=== PATIENT | female | born 1935 | race Caucasian/White ===

== ENCOUNTER → 2017-11-15 09:22 | Outpatient (CLI) | payer MEDICARE, OTHER, SELFPAY ==
[2017-11-15] VITALS (7 sets, daily range): BP systolic 100–147; BP diastolic 58–86; PULSE 77–100; RESP 10–18; TEMP 36.2; O2SAT 97–100
--- NOTE | 2017-11-15 | DI.RAD.S_ITS ---
PROCEDURE: PAIN L/S TRANSFORAMINAL INJECT INDICATIONS: LUMBAR PAIN FINDINGS: Fluoroscopic spot filming was performed to verify placement of spinal needles at the left L3-4 level, as labeled on the films. Appropriate location(s) of the needle tip was confirmed by injection of iodinated contrast. IMPRESSION: Successful left L3-4 nerve root 3 localization. Dictated by: Link Solorio M.D. on 11/15/2017 at 12:58 Approved by: Link Solorio M.D. on 11/15/2017 at 12:59
--- NOTE | 2017-11-15 11:18 | P.PCN_ITS ---
Procedures Date/Time Date of procedure: 11/15/17 Time of procedure: 10:42 General Procedure description: PATIENT: Irma Lemus DATE OF : 1935 DATE OF SURGERY: 11/15/2017 PROVIDER: Manny Cortez DO Operative Note PREOP DIAGNOSIS 1. FORAMINAL STENOSIS WITH LE SYMPTOMS, POST OP DIAGNOSIS 1. FORAMINAL STENOSIS WITH LE SYMPTOMS, PROCEDURES 1. FLUOROSCOPICALLY GUIDED CONTRAST CONTROLLED TRANSFORAMINAL EPIDURAL STEROID INJECTION - left L3/4 TFESI, SURGEON: Manny Cortez DO INDICATIONS: Irma is referred by Dr. Ziegler for treatment of Foraminal Stenosis with Left LE Symptoms FINDINGS Foraminal Nerve Root Compression secondary to disc disease and facet hypertrophy DESCRIPTION OF PROCEDURE Following denial of allergy and review of potential side effects and complications, including, but not necessarily limited to, infection, allergic reaction, local tissue breakdown, stroke, temporary or permanent nerve injury, paralysis, and possible , the patient indicated that the patient understood and agreed to proceed. An informed consent document was signed by the patient, witnessed by a nurse, and placed in the patient's chart. Additionally, other treatment options including medications, modalities, and physical therapy were reviewed with the patient. Per the patient request, IV conscious sedation was administered via 4mg of Versed to patient comfort. The patient's vital signs were monitored throughout the procedure by both the nurse and the physician without significant fluctuation. The patient remained conversant throughout the procedure. In the prone position following sterile prep and drape of the lumbar region, the left L3/4 posterior neuroforamen was identified fluoroscopically. The skin was anesthetized via a 25-gauge 1.5-inch needle with 1% lidocaine solution. At this point, a 25-gauge 3.5-inch spinal needle was atraumatically introduced and advanced under fluoroscopic guidance through the posterior left L3/4 neuroforamen to approximately the anterior aspect of the canal. Depth was confirmed on lateral view. Following negative aspiration, injection of approximately 1.5 cc of Isovue 200 under live fluoroscopy in the AP view confirmed excellent flow along the nerve root, into the epidural space without vascular or intrathecal uptake observed Radiological data, including multiple fluoroscopic views of the lumbosacral spine, reveal a spinal needle at the left L3/4 posterior neuroforamen. Subsequent views show flow of contrast material flowing superiorly and inferiorly along the nerve root confirming epidural flow. Subsequently, a test dose of 1.5 cc of 1% lidocaine solution was administered and patient was observed for two minutes for signs or symptoms of complications , including abdominal pain, shortness of breath, bilateral upper or lower extremity weakness, nausea and vomiting, prior to steroid injection. At this point, a total of 3 cc or 20 mg of dexamethasone and 80mg Depo medrol was injected without incident. The patient was then transferred to the recovery area where they were observed for an appropriate time after the injection. The patient reported a VAS score of 7 prior to the procedure and a post-procedure VAS of 0. Total Fluoroscopy Time: 17.3 seconds Total Conscious Sedation Time: 24min POST OP INSTRUCTIONS The patient was provided a Pain Log to continue to record their response to the target-specific procedure prior to follow-up visit with their referring physician. Additionally, specific post-injection care instructions and a contact number to our office were provided if concerns arise regarding possible complications associated with the procedure are suspected. Manny Cortez DO
--- NOTE | 2017-11-15 18:08 | PC.NURSE ---
11:22 pt still sedated from 4mg Versed given during procedure. pt tolerated procedure well. pt did not need supplemental oxygen and was able to maintain her airway she just was very drowsy and still unsteady on her feet. pt was not ready for discharge so I passed off report to Shandra Tee RN who took over monitoring pt at 11:30am He would have dc'd her IV. I updated her Elroy to her progress when I went out to bring the next patient back. pt was discharged home with her .
== END ==
PROVIDERS: Family Provider Family Medicine; PCP Family Medicine; Visit Provider Physical Medicine & Rehabilitation
DX: M54.5 Low back pain (principal)
CPT/HCPCS: 64483; 99152; J1040; J1100; J2250

== ENCOUNTER 2017-12-12 12:27 | Outpatient (CLI) | payer MEDICARE, OTHER, SELFPAY ==
[2017-12-12] VITALS (9 sets, daily range): BP systolic 110–147; BP diastolic 52–82; PULSE 67–84; RESP 15–22; TEMP 35.9; O2SAT 97–100
--- NOTE | 2017-12-12 12:28 | DI.RAD.S_ITS ---
PROCEDURE: PAIN L/S TRANSFORAMINAL INJECT INDICATIONS: spinal stenosiS FINDINGS: Fluoroscopic spot filming was performed to verify placement of spinal needles at the left L3-4 nerve root level, as labeled on the films. Appropriate location(s) of the needle tip(s) was confirmed by injection of iodinated contrast. IMPRESSION: Successful left L3-4 nerve root epidural injection. Dictated by: Link Solorio M.D. on 12/12/2017 at 16:52 Approved by: Link Solorio M.D. on 12/12/2017 at 16:53
--- NOTE | 2017-12-12 13:33 | P.PCN_ITS ---
Procedures Date/Time Date of procedure: 12/12/17 Time of procedure: 13:32 General Procedure description: PROVIDER: Manny Cortez DO Operative Note PREOP DIAGNOSIS 1. FORAMINAL STENOSIS WITH LE SYMPTOMS, POST OP DIAGNOSIS 1. FORAMINAL STENOSIS WITH LE SYMPTOMS, PROCEDURES 1. FLUOROSCOPICALLY GUIDED CONTRAST CONTROLLED TRANSFORAMINAL EPIDURAL STEROID INJECTION - LEFT L3/4 TFESI SURGEON: Manny Cortez DO INDICATIONS Irma is referred by Dr. Ziegler for treatment of Foraminal Stenosis with left LE Symptoms FINDINGS Foraminal Nerve Root Compression secondary to disc disease and facet hypertrophy DESCRIPTION OF PROCEDURE Following denial of allergy and review of potential side effects and complications, including, but not necessarily limited to, infection, allergic reaction, local tissue breakdown, stroke, temporary or permanent nerve injury, paralysis, and possible , the patient indicated that the patient understood and agreed to proceed. An informed consent document was signed by the patient, witnessed by a nurse, and placed in the patient's chart. Additionally, other treatment options including medications, modalities, and physical therapy were reviewed with the patient. Per the patient request, IV conscious sedation was administered via 4mg of Versed to patient comfort. The patient's vital signs were monitored throughout the procedure by both the nurse and the physician without significant fluctuation. The patient remained conversant throughout the procedure. In the prone position following sterile prep and drape of the lumbar region, the left L3/4 posterior neuroforamen was identified fluoroscopically. The skin was anesthetized via a 25-gauge 1.5-inch needle with 1% lidocaine solution. At this point, a 25-gauge 3.5-inch spinal needle was atraumatically introduced and advanced under fluoroscopic guidance through the posterior left L3/4 neuroforamen to approximately the anterior aspect of the canal. Depth was confirmed on lateral view. Following negative aspiration, injection of approximately 1.5 cc of Isovue 200 under live fluoroscopy in the AP view confirmed excellent flow along the nerve root, into the epidural space without vascular or intrathecal uptake observed Radiological data, including multiple fluoroscopic views of the lumbosacral spine, reveal a spinal needle at the left L3/4 posterior neuroforamen. Subsequent views show flow of contrast material flowing superiorly and inferiorly along the nerve root confirming epidural flow. Subsequently, a test dose of 1.5 cc of 1% lidocaine solution was administered and patient was observed for two minutes for signs or symptoms of complications , including abdominal pain, shortness of breath, bilateral upper or lower extremity weakness, nausea and vomiting, prior to steroid injection. At this point, a total of 3 cc or 20 mg of dexamethasone and 80mg Depo medrol was injected without incident. The patient was then transferred to the recovery area where they were observed for an appropriate time after the injection. The patient reported a VAS score of 7 prior to the procedure and a post-procedure VAS of 0. Total Fluoroscopy Time: 23.2 seconds Total Conscious Sedation Time: 24min POST OP INSTRUCTIONS The patient was provided a Pain Log to continue to record their response to the target-specific procedure prior to follow-up visit with their referring physician. Additionally, specific post-injection care instructions and a contact number to our office were provided if concerns arise regarding possible complications associated with the procedure are suspected. Manny Cortez DO Complications: none
[2017-12-12] MEDS: methylPREDNISolone acetate 80 MG/ML VIAL INJ (13:41)
[2017-12-12] MEDS: IOPAMIDOL 15 ML VIAL 3 ML INJ (13:41)
[2017-12-12] MEDS: DEXAMETHASONE 10 MG/ML VIAL 20 MG INJ (13:41)
[2017-12-12] MEDS: BUPIVACAINE 0.25% (PF) 30 ML VIAL INJ (13:45)
[2017-12-12] MEDS: MIDAZOLAM 5 MG/5 ML VIAL IV (14:18)
--- NOTE | 2017-12-12 15:37 | PC.NURSE ---
pt still not to stable on her feet or so she felt, so she was wheeled out to her car with her by our technical aide preeti. pt tolerated procedure well and understands discharge instructions.
== END 2017-12-12 15:39 ==
LOC: RAD 12:28
PROVIDERS: Family Provider Family Medicine; PCP Family Medicine; Visit Provider Physical Medicine & Rehabilitation
DX: M48.061 Spinal stenosis, lumbar region without neurogenic claudication (principal); M54.17 Radiculopathy, lumbosacral region; S32.030A Wedge compression fracture of third lumbar vertebra, initial encounter for closed fracture
CPT/HCPCS: 64483; 99152; J1040; J1100; J2250

== ENCOUNTER → 2018-01-23 10:42 | Outpatient (CLI) | payer MEDICARE, OTHER, SELFPAY ==
--- NOTE | 2018-01-23 | DI.ECHO.S_ITS ---
[facility]---------+ [facility] +---------+ : : [address] : [address] : : : : [id number] : : : : Phone: [phone]+ Echocardiogram Report + + :Name: ISAAC ROSSI Study Date: 01/23/2018 Height: 63 in : :[facility] Exam Location: [place] Weight: 114 lb : : Gender: Female BSA: 1.5 m2 : :: 1935 Age: 82 yrs BP: 120/80 mmHg: :Reason For Study: MR : :Ordering Physician: : :Fidelia Ziegler Performed By: Rae Awan : :Referring: FIDELIA ZIEGLER : + + Interpretation Summary The ejection fraction is estimated to be 55-60%. The left atrium is severely dilated. There is moderate mitral regurgitation. The aortic valve is moderately calcified. Leaflet mobility is moderate to severely reduced. There is severe aortic stenosis. Compared to the prior echo study, there has been an increase in the severity of aortic stenosis. There is mild tricuspid regurgitation. The right ventricular systolic pressure is estimated at 37 mmHg assuming a right atrial pressure of 15 mm Hg. Procedure: A two-dimensional transthoracic echocardiogram with color flow and Doppler was performed. The study quality was technically adequate. Comparison is made with the echocardiogram of 02/10/2016. The patient was in normal sinus rhythm during the exam. Left Ventricle: There is mild proximal septal thickening noted. The left ventricle is normal in size. The left ventricular ejection fraction is normal. The ejection fraction is estimated to be 55-60%. There are no focal wall motion abnormalities. Assessment of diastolic parameters suggests a pseudonormalization pattern, consistent with elevated filling pressures. Right Ventricle: The right ventricle is normal in size and function. Atria: The left atrium is severely dilated. The right atrium is moderate to severely dilated. There is no Doppler evidence for an interatrial shunt. Mitral Valve: The mitral valve leaflets appear thickened, but open well. There is mild mitral valve prolapse. There is moderate mitral regurgitation. Aortic Valve: The aortic valve is trileaflet. The aortic valve is moderately calcified. Leaflet mobility is moderate to severely reduced. There is severe aortic stenosis. The calculated aortic valve area is 0.44 cm2. The peak aortic velocity is 3.6 m/sec. The peak aortic velocity on the previous exam was 2.8 m/sec. The aortic valve mean gradient is 30 mmHg. Compared to the prior echo study, there has been an increase in the severity of aortic stenosis. No aortic regurgitation is present. Tricuspid Valve: The tricuspid valve is normal. There is mild tricuspid regurgitation. The right ventricular systolic pressure is estimated at 37 mmHg assuming a right atrial pressure of 15 mm Hg. Pulmonic Valve: The pulmonic valve leaflets are thin and pliable; valve motion is normal. There is moderate pulmonic regurgitation. Great Vessels: The aortic root is normal size. The ascending aorta is normal in size. The aortic arch is normal in size. The pulmonary is not well visualized. The IVC is dilated (diameter is greater than 2.1 cm) and it collapses less than 50% with a sniff. This suggests a high right atrial pressure of 15 mm Hg. Pericardium/ Pleura There is no pericardial effusion. There is no pleural effusion. MMode/2D Measurements & Calculations LVIDd: 4.8 cm LVOT diam: 1.9 cm LVIDs: 3.1 cm Ao root diam: 3.2 cm FS: 34.1 % asc Aorta Diam: 3.0 cm EPSS: 0.84 cm Ao Arch Diam (Prox Trans): 2.5 cm IVSd: 1.3 cm LVPWd: 1.0 cm LV thompson. diameter/BSA (cm/m^2): 3.1 LV sys. diameter/BSA (cm/m^2): 2.1 LA A2 area: 28.8 cm2 RA long axis: 5.6 cm LA A4 area: 23.0 cm2 RA area: 21.0 cm2 LA length (vol): 5.8 cm RA vol: 67.1 ml LA vol: 97.0 ml RA : 44.0 ml/m2 LA vol index: 63.7 ml/m2 IVC diam: 2.6 cm RVD1 (basal): 3.3 cm RVD2 (mid): 2.1 cm TAPSE: 2.3 cm Doppler Measurements & Calculations Ao V2 max: 359.2 cm/sec LVOT Max Skyler: 65.6 cm/sec Ao V2 mean: 259.6 cm/sec LV V1 max P.7 mmHg Ao max P.6 mmHg LV V1 VTI: 14.5 cm Ao mean P.4 mmHg GABRIEL(I,D): 0.44 cm2 Ao V2 VTI: 90.7 cm GABRIEL(V,D): 0.50 cm2 sev ratio: 0.16 GABRIEL indexed to BSA (cm^2/m^2): 0.29 MV E max skyler: 110.1 cm/sec TR max skyler: 234.6 cm/sec MV A max skyler: 97.5 cm/sec TR max P.0 mmHg MV E/A: 1.1 PA V2 max: 42.6 cm/sec Med Peak E' Skyler: 4.6 cm/sec PA V2 mean: 27.5 cm/sec E/E' med: 23.8 PA mean P.36 mmHg Lat Peak E' Skyler: 4.6 cm/sec PA pr(Accel): -5.8 mmHg E/E' lat: 23.8 E/e' average: 23.8 MV dec time: 0.16 sec MV P1/2t: 47.7 msec MVA(VTI): 1.2 cm2 MV V2 mean: 80.7 cm/sec MV P1/2t max skyler: 109.4 cm/sec MV mean P.9 mmHg MVA(P1/2t): 4.6 cm2 MV V2 VTI: 34.0 cm Reading Physician:[id number] PM
== END ==
PROVIDERS: Family Provider Family Medicine; PCP Family Medicine; Visit Provider Family Medicine
DX: I08.3 Combined rheumatic disorders of mitral, aortic and tricuspid valves (principal)
CPT/HCPCS: 93306

== ENCOUNTER → 2018-08-09 12:50 | Outpatient (CLI) | payer MEDICARE, OTHER, SELFPAY | PROVIDERS: Family Provider Family Medicine; PCP Family Medicine; Visit Provider Family Medicine | DX: N64.89 Other specified disorders of breast (principal); Z53.9 Procedure and treatment not carried out, unspecified reason ==

== ENCOUNTER → 2018-10-29 08:20 | Outpatient (CLI) | payer MEDICARE, OTHER, SELFPAY ==
--- NOTE | 2018-10-29 | DI.MG.S_ITS ---
UNILATERAL RIGHT DIGITAL DIAGNOSTIC MAMMOGRAM 3D/2D: 10/29/2018 CLINICAL: Asymmetric tissue per CT right breast. Family history of breast cancer. Comparison is made to exams dated: 07/04/2018 CT - [facility], 01/24/2018 mammogram, 04/04/2016 mammogram, and 12/29/2014 mammogram - [facility]. Outside CT Chest 07/04/18. The tissue of the right breast are heterogeneously dense. This may lower the sensitivity of mammography. No significant masses, calcifications, or other findings are seen in the breast. There has been no significant interval change. IMPRESSION: NEGATIVE There is no mammographic evidence of malignancy. The findings on CT likely correspond to asymmetric fibroglandular tissue in the upper outer quadrant of the right breast which appears unchanged. A 1 year screening mammogram is recommended. This exam was interpreted at Station ID: [id number]. NOTE: For mammograms, a report in lay terms will be sent to the patient. Approximately 15% of breast malignancies will not be visualized mammographically. In the management of a palpable breast mass, a negative mammogram must not discourage biopsy of a clinically suspicious lesion. Electronically Signed By: Twin Townsend M.D. ddjoe/:10/29/2018 13:34:35 letter sent: Normal Exam ACR BI-RADS Category 1: Negative [id number]
== END ==
PROVIDERS: Family Provider Family Medicine; PCP Family Medicine; Visit Provider Family Medicine
DX: R92.8 Other abnormal and inconclusive findings on diagnostic imaging of breast (principal); Z80.3 Family history of malignant neoplasm of breast
CPT/HCPCS: 77065; G0279

== ENCOUNTER → 2018-12-07 15:51 | Outpatient (CLI) | payer MEDICARE, OTHER, SELFPAY ==
--- NOTE | 2018-12-07 | DI.ECHO.S_ITS ---
[facility] +---------+ [facility] +---------+ : : [address] : : : [address] : : : : [id number] : : : : Phone: [phone]---------+ Echocardiogram Report + + :Name: ISAAC ROSSI Study Date: 12/07/2018 Height: 63 in : :[facility] Location: [facility] Weight: 109 lb : : Gender: Female BSA: 1.5 m2 : :: 1935 Age: 83 yrs BP: 118/80 mmHg: :Reason For Study: Atrial fibrillation : :Ordering Physician: Vlad : :Meaghan Dorantes Performed By: Arlet Page : + + Interpretation Summary Left ventricular systolic function is mildly reduced. Left ventricular ejection fraction is estimated to be 45. The right ventricle is normal size. Right ventricular systolic function is at the lower limits of normal. Pulmonary artery pressures cannot be estimated because of the lack of a measurable TR jet velocity. There is a bioprosthetic aortic valve. The prosthetic aortic valve is well- seated and velocities are normal for this type of valve. There is mild to moderate mitral stenosis. -Overall the LV systolic function appears minimally better compared to the prior echo with the apex having the worst contractility. The mitral valve hemodynamics have improved and peak velocity is reduced from 1.8 m/s to 1.5 m/sec. The patient is no longer tachycardic. Procedure: A two-dimensional transthoracic echocardiogram with color flow and Doppler was performed. The study quality was technically adequate. Comparison is made with the echocardiogram of 10/05/2018. The patient has a paced rhythm. Left Ventricle: The left ventricle is normal in size. Left ventricular wall thickness is borderline increased. Left ventricular systolic function is mildly reduced. Left ventricular ejection fraction is estimated to be 45. There is moderate global hypokinesis of the left ventricle. The apex is severely hypokinetic. Septal motion is consistent with post-operative state. Diastolic function could not be accurately assessed due to paced rhythm. Right Ventricle: The right ventricle is normal size. There is a pacemaker lead in the right ventricle. Right ventricular systolic function is at the lower limits of normal. Atria: Both atria are moderately dilated. There is no Doppler evidence for an interatrial shunt. Mitral Valve: There is moderate mitral annular calcification. An annuloplasty ring is noted in the mitral position. The mitral valve mean gradient is 4.8 mmHg. There is mild to moderate mitral stenosis. There is trace mitral regurgitation. Aortic Valve: There is a bioprosthetic aortic valve. The prosthetic aortic valve is well-seated. The gradients through the prosthetic aortic valve are within the normal range for this type of valve. No aortic regurgitation is present. Tricuspid Valve: The tricuspid valve is normal in structure and function. There is trace tricuspid regurgitation. Pulmonary artery pressures cannot be estimated because of the lack of a measurable TR jet velocity. Pulmonic Valve: The pulmonic valve is not well seen, but is grossly normal. There is trace pulmonic regurgitation. Great Vessels: The aortic root is normal size. The ascending aorta is normal in size. The pulmonary artery is not well visualized, but is probably normal size. The IVC is dilated (diameter is greater than 2.1 cm) and it collapses less than 50% with a sniff. This suggests a high right atrial pressure of 15 mm Hg. Pericardium/ Pleura There is no pericardial effusion. There is no pleural effusion. MMode/2D Measurements & Calculations LVIDd: 4.4 cm LVOT diam: 1.7 cm LVIDs: 3.1 cm Ao root diam: 2.7 cm FS: 28.5 % asc Aorta Diam: 2.2 cm EPSS: 0.92 cm IVSd: 0.89 cm LVPWd: 0.95 cm LV thompson. diameter/BSA (cm/m^2): 2.9 LV sys. diameter/BSA (cm/m^2): 2.1 LA A2 area: 19.0 cm2 RA long axis: 5.9 cm LA A4 area: 17.8 cm2 RA area: 20.9 cm2 LA length (vol): 4.5 cm RA vol: 62.8 ml LA vol: 63.8 ml RA : 42.0 ml/m2 LA vol index: 42.7 ml/m2 IVC diam: 2.2 cm RVD1 (basal): 3.7 cm LVAd ap4: 22.9 cm2 RVD2 (mid): 3.1 cm LVAs ap4: 17.7 cm2 LVLs ap4: 7.0 cm LVAd ap2: 26.5 cm2 LVLd ap2: 7.7 cm LVAs ap2: 18.4 cm2 LVLs ap2: 6.9 cm Doppler Measurements & Calculations Ao V2 max: 164.4 cm/sec LVOT Max Skyler: 71.8 cm/sec Ao V2 mean: 119.2 cm/sec LV V1 max P.1 mmHg Ao max P.8 mmHg LV V1 VTI: 15.2 cm Ao mean P.1 mmHg GABRIEL(I,D): 0.99 cm2 Ao V2 VTI: 33.1 cm GABRIEL(V,D): 0.94 cm2 sev ratio: 0.46 GABRIEL indexed to BSA (cm^2/m^2): 0.66 MV E max skyler: 146.3 cm/sec PA V2 max: 51.2 cm/sec MV A max skyler: 108.3 cm/sec PA V2 mean: 40.2 cm/sec MV E/A: 1.4 PA mean P.68 mmHg Med Peak E' Skyler: 2.5 cm/sec PA Accel Time: 0.12 sec E/E' med: 59.0 Lat Peak E' Skyler: 5.8 cm/sec E/E' lat: 25.3 E/e' average: 42.2 MV dec time: 0.42 sec MV P1/2t: 122.8 msec MVA(VTI): 0.79 cm2 MV V2 mean: 106.2 cm/sec MV P1/2t max skyler: 146.9 cm/sec MV mean P.8 mmHg MVA(P1/2t): 1.8 cm2 MV V2 VTI: 41.2 cm SV(LVOT): 32.6 ml Electronically signed by: Vlad Harding M.D. on Reading Physician:12/09/2018 10:48 PM
== END ==
PROVIDERS: Family Provider Family Medicine; PCP Family Medicine; Visit Provider Hospitalist
DX: I48.0 Paroxysmal atrial fibrillation (principal); I05.0 Rheumatic mitral stenosis; Z95.2 Presence of prosthetic heart valve
CPT/HCPCS: 93306

== ENCOUNTER → 2019-07-22 13:23 | Outpatient (CLI) | payer MEDICARE, OTHER, SELFPAY ==
--- NOTE | 2019-07-22 | DI.ECHO.S_ITS ---
[facility] +---------+ : : [address] : [address] : : : : [id number] : : : : Phone: [phone]+ Echocardiogram Report + + :Name: ISAAC ROSSI Study Date: 07/22/2019 Height: 63 in : :[facility] Weight: 110 lb : : Gender: Female BSA: 1.5 m2 : :: 1935 Age: 84 yrs BP: 118/76 mmHg: :Reason For Study: Aortic valve replacement - bioprosthetic : :Ordering Physician: Eugenia : :Meaghan Dorantes Performed By: Luis Eduardo Fleming : :Referring: EUGENIA EDEN : + + Interpretation Summary Left ventricular wall thickness is mildly increased. The ejection fraction is estimated to be 50-55%. There is significant dyssynchronous contractility; the apical and apical inferior appear mildly hypokinetic. The right ventricle is normal in size and function. Post mitral annuloplasty There is moderate mitral stenosis. The mitral valve mean gradient is 8.5 mmHg. Pulmonary artery pressures cannot be estimated because of the lack of a measurable TR jet velocity. There is a bioprosthetic aortic valve. The gradients through the prosthetic aortic valve are within the normal range for this type of valve. -Overall this echocardiogram shows normal bioprosthetic aortic valve function and moderate iatrogenic mitral stenosis related to annuloplasty which is more pronounced on this study, but this is unlikely to be significant given there is no evidence of pulmonary hypertension. -The LV contractility has improved; There is significant dyssynchronous pattern of contractility with mild apical and apical inferior wall hypokinesia which is similar to the prior studies. Procedure: A two-dimensional transthoracic echocardiogram with color flow and Doppler was performed. The study quality was technically adequate. Prior echo performed on 12/07/18. The patient has a paced rhythm. Left Ventricle: The left ventricle is normal in size. Left ventricular wall thickness is mildly increased. The ejection fraction is estimated to be 50- 55%. Left ventricular systolic function is low normal. Mild apical and apical inferior hypokinesis. Diastolic function could not be accurately assessed due to confounding valvular disease. Right Ventricle: The right ventricle is normal in size and function. Atria: The left atrium is moderately dilated. There is a catheter/pacemaker lead seen in the right atrium. The right atrium is mildly dilated. There is no Doppler evidence for an interatrial shunt. Mitral Valve: Post mitral annuloplasty. There is moderate mitral stenosis. The mitral valve mean gradient is 8.5 mmHg. There is mild mitral regurgitation. Aortic Valve: There is a bioprosthetic aortic valve. The prosthetic aortic valve is well-seated. The gradients through the prosthetic aortic valve are within the normal range for this type of valve. The aortic valve mean gradient is 7 mmHg. There is trace aortic regurgitation. Tricuspid Valve: The tricuspid valve is normal in structure and function. There is trace tricuspid regurgitation. Pulmonary artery pressures cannot be estimated because of the lack of a measurable TR jet velocity. Pulmonic Valve: The pulmonic valve is not well visualized. There is moderate pulmonic regurgitation. Great Vessels: The aortic root is normal size. The dimensions of the ascending aorta are normal. The pulmonary artery is normal size. The IVC is dilated (diameter is greater than 2.1 cm) yet it collapses greater than 50% with a sniff. This suggests a right atrial pressure of 8 mm Hg. Pericardium/ Pleura There is no pericardial effusion. There is no pleural effusion. MMode/2D Measurements & Calculations LVIDd: 4.0 cm LVOT diam: 1.9 cm LVIDs: 3.1 cm Ao root diam: 3.1 cm FS: 22.8 % EPSS: 0.92 cm IVSd: 1.2 cm LVPWd: 1.2 cm LV thompson. diameter/BSA (cm/m^2): 2.7 LV sys. diameter/BSA (cm/m^2): 2.1 LA A2 area: 20.0 cm2 RA long axis: 5.1 cm LA A4 area: 18.7 cm2 RA area: 15.1 cm2 LA length (vol): 4.9 cm RA vol: 37.9 ml LA vol: 64.8 ml RA : 25.3 ml/m2 LA vol index: 43.2 ml/m2 TAPSE: 1.8 cm LVAd ap4: 21.2 cm2 LVAs ap4: 14.2 cm2 LVLs ap4: 6.8 cm LVAd ap2: 25.7 cm2 LVLd ap2: 8.0 cm LVAs ap2: 18.0 cm2 LVLs ap2: 7.4 cm Doppler Measurements & Calculations Ao V2 max: 178.3 cm/sec LVOT Max Skyler: 84.1 cm/sec Ao V2 mean: 125.6 cm/sec LV V1 max P.9 mmHg Ao max P.7 mmHg LV V1 VTI: 16.9 cm Ao mean P.2 mmHg GABRIEL(I,D): 1.4 cm2 Ao V2 VTI: 36.9 cm GABRIEL(V,D): 1.4 cm2 sev ratio: 0.46 GABRIEL indexed to BSA (cm^2/m^2): 0.90 MV E max skyler: 185.6 cm/sec PA V2 max: 60.8 cm/sec MV A max skyler: 145.4 cm/sec PA V2 mean: 48.7 cm/sec MV E/A: 1.3 PA mean P.0 mmHg Med Peak E' Skyler: 4.2 cm/sec PA Accel Time: 0.08 sec E/E' med: 43.9 Lat Peak E' Skyler: 4.5 cm/sec E/E' lat: 41.4 E/e' average: 42.7 MV dec time: 0.31 sec MVA(VTI): 0.96 cm2 MV V2 mean: 139.2 cm/sec SV(LVOT): 49.9 ml MV mean P.5 mmHg MV V2 VTI: 52.0 cm MV P1/2t-pr_phl: 135.7 msec Electronically signed by: Eugenia Eden M.D. on Reading Physician:07/22/2019 05:31 PM
== END ==
PROVIDERS: Family Provider Family Medicine; PCP Family Medicine; Visit Provider Hospitalist
DX: I05.2 Rheumatic mitral stenosis with insufficiency (principal); Z95.3 Presence of xenogenic heart valve; Z98.890 Other specified postprocedural states; Z95.1 Presence of aortocoronary bypass graft
CPT/HCPCS: 93306

== ENCOUNTER → 2019-08-07 09:43 | Outpatient (CLI) | payer MEDICARE, OTHER, SELFPAY | PROVIDERS: Family Provider Family Medicine; PCP Family Medicine; Referring Provider Family Medicine; Visit Provider Family Medicine | DX: M81.0 Age-related osteoporosis without current pathological fracture (principal); Z78.0 Asymptomatic menopausal state | CPT/HCPCS: 77080 ==

== ENCOUNTER → 2019-08-09 10:25 | Outpatient (CLI) | payer MEDICARE, OTHER, SELFPAY ==
[2019-08-09 11:28] LABS: Add Manual Diff / Slide Review NO; Basophils Absolute Auto 300 /uL (0-100); Basophils Percent Auto 3.4 % (0-2); Eosinophils Absolute Auto 200 /uL (0-450); Hemoglobin 13.1 g/dL (12.0-16.0); Lymphocytes Absolute Auto 2400 /uL (1100-4500); Lymphocytes Percent Auto 23.5 % (25-40); Mean Corpuscular HGB Conc 33.7 % (30-36); Mean Corpuscular Hemoglobin 31.9 PG (26-34); Mean Corpuscular Volume 94.7 fL (80-100); Monocytes Absolute Auto 900 /uL (0-900); Monocytes Percent Auto 8.7 % (3-14); Neutrophils Absolute Auto 6400 /uL (1500-7000); Neutrophils Percent Auto 62.4 % (50-75); Platelet Count 315 X10^3/uL (150-400); Red Blood Cell Count 4.12 X10^6/uL (4.0-5.2); White Blood Cell Count 10.3 X10^3/uL (4.5-11.0)
[2019-08-09 11:31] LABS: Alanine Aminotransferase 45 IU/L (<35); Albumin 4.5 g/dL (3.5-5.0); Albumin Globulin Ratio 1.3 (1.0-2.8); Alkaline Phosphatase 145 U/L (38-126); Aspartate Aminotransferase 51 IU/L (14-36); BUN Creatinine Ratio 23.8 (6-22); Bilirubin Total 0.6 mg/dL (0.2-1.3); Blood Urea Nitrogen 19 mg/dL (7-17); Calcium 9.9 mg/dL (8.4-10.2); Carbon Dioxide 32 mmol/L (22-32); Chloride 102 mmol/L (98-107); Cholesterol 192 mg/dL (140-199); Estimated Glomerular Filt Rate > 60.0 mL/min (>60); Globulin 3.4 g/dL (1.7-4.1); Glucose 87 mg/dL (80-110); HDL Cholesterol 51 mg/dL (40-60); HEMOLYSIS < 15 (0-50); LDL Cholesterol Calculated 125 mg/dL (<100); Potassium 4.2 mmol/L (3.4-5.1); Sodium 142 mmol/L (137-145); Total Protein 7.9 g/dL (6.3-8.2); Triglycerides 80 mg/dL (35-150)
[2019-08-09 12:06] LABS: Thyroid Stimulating Hormone 1.24 uIU/mL (0.47-4.68)
== END ==
PROVIDERS: Family Provider Family Medicine; PCP Family Medicine; Referring Provider Family Medicine; Visit Provider Family Medicine
DX: E78.5 Hyperlipidemia, unspecified (principal); I10 Essential (primary) hypertension
CPT/HCPCS: 36415; 80053; 80061; 84443; 85025

== ENCOUNTER → 2020-04-08 12:37 | Outpatient (CLI) | payer MEDICARE, OTHER, SELFPAY ==
--- NOTE | 2020-04-08 | DI.RAD.S_ITS ---
PROCEDURE: XR SHOULDER LT MIN 2V INDICATIONS: LEFT SHOULDER PAIN TECHNIQUE: 3 views of the shoulder were acquired. COMPARISON: None. FINDINGS: Bones: No fractures or dislocations. No suspicious bony lesions. Visualized ribs appear intact. Soft tissues: No suspicious soft tissue calcifications. Pacemaker and dual chamber leads in place. IMPRESSION: [id number] AC joint osteoarthritis. Dictated by: Link Solorio M.D. on 04/08/2020 at 15:15 Approved by: Link Solorio M.D. on 04/08/2020 at 15:16
== END ==
PROVIDERS: Family Provider Family Medicine; PCP Family Medicine; Referring Provider Family Medicine; Visit Provider Family Medicine
DX: M25.512 Pain in left shoulder (principal); M19.012 Primary osteoarthritis, left shoulder
CPT/HCPCS: 73030

== ENCOUNTER → 2020-04-21 10:27 | Outpatient (CLI) | payer MEDICARE, OTHER, SELFPAY ==
--- NOTE | 2020-04-21 | DI.MG.S_ITS ---
BILATERAL DIGITAL SCREENING MAMMOGRAM 3D/2D WITH CAD: 04/21/2020 CLINICAL: Routine screening. Family history of breast cancer. Comparison is made to exams dated: 10/29/2018 mammogram - [facility], 01/24/2018 mammogram, and 04/04/2016 mammogram - [facility]. There are scattered fibroglandular elements in both breasts. Current study was also evaluated with a Computer Aided Detection (CAD) system. No significant masses, calcifications, or other findings are seen in either breast. There has been no significant interval change. IMPRESSION: NEGATIVE There is no mammographic evidence of malignancy. A 1 year screening mammogram is recommended. This exam was interpreted at Station ID: [id number]. NOTE: For mammograms, a report in lay terms will be sent to the patient. Approximately 15% of breast malignancies will not be visualized mammographically. In the management of a palpable breast mass, a negative mammogram must not discourage biopsy of a clinically suspicious lesion. Electronically Signed By: Xander kahn/gene:04/21/2020 16:59:10 letter sent: Normal Exam ACR BI-RADS Category 1: Negative 3341F
== END ==
PROVIDERS: Family Provider Family Medicine; PCP Family Medicine; Referring Provider Family Medicine; Visit Provider Family Medicine
DX: Z12.31 Encounter for screening mammogram for malignant neoplasm of breast (principal); Z80.3 Family history of malignant neoplasm of breast
CPT/HCPCS: 77063; 77067

== ENCOUNTER → 2020-05-12 12:15 | Outpatient (ROUT) | payer MEDICARE, OTHER, SELFPAY ==
[2020-05-12 12:24] LABS: INR 3.5 (0.9-1.3); Prothrombin Time 39.7 SECONDS (10.1-12.7)
== END ==
PROVIDERS: Family Provider Family Medicine; PCP Family Medicine; Visit Provider Family Medicine
DX: Z79.01 Long term (current) use of anticoagulants (principal); Z95.2 Presence of prosthetic heart valve
CPT/HCPCS: 85610

== ENCOUNTER → 2020-05-15 12:00 | Outpatient (ROUT) | payer MEDICARE, OTHER, SELFPAY ==
[2020-05-15 12:07] LABS: INR 1.4 (0.9-1.3); Prothrombin Time 15.8 SECONDS (10.1-12.7)
== END ==
PROVIDERS: Family Provider Family Medicine; PCP Family Medicine; Visit Provider Family Medicine
DX: Z79.01 Long term (current) use of anticoagulants (principal); Z95.2 Presence of prosthetic heart valve
CPT/HCPCS: 85610

== ENCOUNTER → 2020-06-22 12:25 | Outpatient (CLI) | payer MEDICARE, OTHER, SELFPAY ==
--- NOTE | 2020-06-22 12:27 | DI.US.S_ITS ---
PROCEDURE: US CAROTID DOPPLER BI INDICATIONS: DIZZINESS TECHNIQUE: Color and pulse Doppler interrogation was performed of both carotid systems, with image documentation and velocity measurements. COMPARISON: None. FINDINGS: Stenosis calculations are based on SRU (Society of Radiologists in Ultrasound) criteria. Right side: Brachial blood pressure: 125/71 mm Hg. Common carotid artery peak systolic velocity: 80 cm/sec. Internal carotid artery peak systolic velocity: 92 cm/sec. Internal carotid artery end diastolic velocity: 36 cm/sec. External carotid artery peak systolic velocity: 63 cm/sec. ICA/CCA peak systolic ratio: 1.2 . Carbajal scale imaging description: Minimal plaque at the bifurcation. Percent internal carotid artery stenosis: Less than 50%. Vertebral artery: Flow direction is antegrade. Left side: Brachial blood pressure: 125/71 mm Hg. Common carotid artery peak systolic velocity: 74 cm/sec. Internal carotid artery peak systolic velocity: 93 cm/sec. Internal carotid artery end diastolic velocity: 45 cm/sec. External carotid artery peak systolic velocity: 75 cm/sec. ICA/CCA peak systolic ratio: 1.3 . Carbajal scale imaging description: Minimal plaque at the bifurcation Percent internal carotid artery stenosis: Less than 50% stenosis. Vertebral artery: Flow direction is antegrade. IMPRESSION: Less than 50% stenosis of the internal carotid arteries bilaterally. Dictated by: Asha Alicea M.D. on 06/22/2020 at 14:52 Approved by: Asha Alicea M.D. on 06/22/2020 at 14:54
== END ==
PROVIDERS: Family Provider Family Medicine; PCP Family Medicine; Referring Provider Family Medicine; Visit Provider Family Medicine
DX: I65.23 Occlusion and stenosis of bilateral carotid arteries (principal); R42 Dizziness and giddiness
CPT/HCPCS: 93880

== ENCOUNTER → 2020-08-21 14:15 | Outpatient (ROUT) | payer MEDICARE, OTHER, SELFPAY ==
[2020-08-21 14:32] LABS: INR 2.9 (0.9-1.3); Prothrombin Time 33.6 SECONDS (10.1-12.7)
== END ==
PROVIDERS: Family Provider Family Medicine; PCP Family Medicine; Visit Provider Family Medicine
DX: Z95.2 Presence of prosthetic heart valve (principal); Z79.01 Long term (current) use of anticoagulants
CPT/HCPCS: 85610

== ENCOUNTER → 2020-12-19 11:11 | Outpatient (CLI) | payer MEDICARE, OTHER, SELFPAY ==
[2020-12-19 13:03] LABS: COVID19 -Nasal RAPID Negative (Negative)
== END ==
PROVIDERS: Family Provider Family Medicine; PCP Family Medicine; Visit Provider Physician Assistant
DX: Z01.812 Encounter for preprocedural laboratory examination (principal); Z20.822 Contact with and (suspected) exposure to COVID-19
CPT/HCPCS: 87635; C9803

== ENCOUNTER → 2020-12-21 10:30 | Outpatient (CLI) | payer MEDICARE, OTHER, SELFPAY ==
--- NOTE | 2020-12-22 18:04 | DI.NM.S_ITS ---
DATE OF SERVICE: 12/21/2020 PROCEDURE: Exercise perfusion study. INDICATIONS: Chest discomfort, known coronary artery disease with single-vessel bypass surgery, paroxysmal AFib, history of pacemaker. RADIOPHARMACEUTICAL: 24.8 millicurie technetium-99m Myoview IV was injected at stress and 9.9 millicurie technetium-99m Myoview IV was injected at rest. It was a one day study. CARDIAC STRESS: The patient underwent exercise perfusion study under the supervision of an attending staff. She walked on Kirit protocol for about 4 minutes and 15 seconds, achieved 4.6 METs of workload, functional aerobic impairment positive 31 percent. The first stage was held all the way to the duration of exercise. The patient did not have any anginal discomfort. On baseline, the patient has atrial sensed, atrial paced, as well as ventricular paced rhythm. During stress, the patient has runs of atrial tachycardia, as well as frequent PVCs, including bigeminy and trigeminy. RAW DATA: There is increased subdiaphragmatic activity. Breast shadow was seen. GATED STUDY: Resting LV ejection fraction 74 percent. The stress LV ejection fraction could not be obtained. Resting end-diastolic volume 73 mL. TID ratio 0.76, which is within normal limits. Lung/heart ratio 0.37, which is within normal limits. MYOCARDIAL PERFUSION: Stress supine, resting supine and stress prone images were compared to each other. Stress supine and resting supine images revealed moderate to large size, moderate to severely decreased perfusion of inferior wall extending into the inferoapex, which got completely resolved during prone images ,suggestive of diaphragmatic tissue attenuation artifact. With prone images, there was mildly decreased perfusion of distal inferoseptum, which was not seen during stress supine, suggestive of some shifting tissue attenuation artifact, as well. CONCLUSION: I will call this study a normal myocardial perfusion study with evidence of diaphragmatic tissue attenuation artifact, as well as some shifting tissue attenuation artifact, as stated above. No convincing ischemia or infarction pattern seen. Due to underlying ventricular paced rhythm, as well as atrial arrhythmias and premature ventricular contractions, the stress gated images could not be obtained. Resting left ventricular ejection fraction 74 percent. Overall, this is a low-risk myocardial perfusion scan. Irma Lemus - Esequiel/vasyl doc#: [id number]/job#: [id number] dd: 12/22/2020 16:50:00 dt: 12/22/2020 17:24:00 DICTATING MD/COPIES TO: Michelle Umanzor MD COPIES MNE: ZHANNA;
== END ==
PROVIDERS: Family Provider Family Medicine; PCP Family Medicine; Referring Provider Internal Medicine Cardiovascular Disease; Visit Provider Internal Medicine Cardiovascular Disease
DX: R07.89 Other chest pain (principal); I25.10 Atherosclerotic heart disease of native coronary artery without angina pectoris; I48.0 Paroxysmal atrial fibrillation; Z95.1 Presence of aortocoronary bypass graft; Z95.0 Presence of cardiac pacemaker
CPT/HCPCS: 78452; 93017; A9502

== ENCOUNTER → 2021-05-04 12:00 | Outpatient (CLI) | payer MEDICARE, OTHER, SELFPAY ==
--- NOTE | 2021-05-04 12:01 | DI.MG.S_ITS ---
BILATERAL DIGITAL SCREENING MAMMOGRAM 3D/2D WITH CAD: 05/04/2021 CLINICAL: Routine screening. Family history of breast cancer. Comparison is made to exams dated: 04/21/2020 mammogram, 10/29/2018 mammogram - [facility], and 01/24/2018 mammogram - [facility]. There are scattered fibroglandular elements in both breasts. Current study was also evaluated with a Computer Aided Detection (CAD) system. No significant masses, calcifications, or other findings are seen in either breast. There has been no significant interval change. IMPRESSION: NEGATIVE There is no mammographic evidence of malignancy. A 1 year screening mammogram is recommended. This exam was interpreted at Station ID: [id number]. NOTE: For mammograms, a report in lay terms will be sent to the patient. Approximately 15% of breast malignancies will not be visualized mammographically. In the management of a palpable breast mass, a negative mammogram must not discourage biopsy of a clinically suspicious lesion. Electronically Signed By: Xander kahn/gene:05/04/2021 12:42:07 letter sent: Normal Exam ACR BI-RADS Category 1: Negative 3341F
== END ==
PROVIDERS: Family Provider Family Medicine; PCP Family Medicine; Referring Provider Family Medicine; Visit Provider Family Medicine
DX: Z12.31 Encounter for screening mammogram for malignant neoplasm of breast (principal); Z80.3 Family history of malignant neoplasm of breast
CPT/HCPCS: 77063; 77067

== ENCOUNTER → 2021-06-16 12:22 | Outpatient (ROUT) | payer MEDICARE, OTHER, SELFPAY ==
[2021-06-16 12:37] LABS: INR 2.7 (0.9-1.3); Prothrombin Time 31.1 SECONDS (10.1-12.7)
== END ==
PROVIDERS: Family Provider Family Medicine; PCP Family Medicine; Visit Provider Family Medicine
DX: Z95.2 Presence of prosthetic heart valve (principal); Z79.01 Long term (current) use of anticoagulants
CPT/HCPCS: 85610

== ENCOUNTER 2021-07-05 15:54 | Observation (INO) | payer MEDICARE, OTHER, SELFPAY ==
[2021-07-05] VITALS (12 sets, daily range): BP systolic 113–191; BP diastolic 57–87; PULSE 80–101; RESP 14–29; TEMP 36.7–36.9; O2SAT 93–100; BMI 19.8; BMI 19.5
--- NOTE | 2021-07-05 16:35 | DI.RAD.S_ITS ---
PROCEDURE: XR ACUTE ABDOMEN SERIES INDICATIONS: constipation x 7 days, ? bowel obstruction TECHNIQUE: One view chest and two views of the abdomen were acquired. COMPARISON: [facility], , ABDOMEN 3 VIEW, 05/03/2017, 17:07. FINDINGS: Surgical changes and devices: Sternotomy wires are well aligned. Chest: Indistinctness of the lower lung zones, likely secondary to clothing artifact. No consolidation, pleural effusion, or pneumothorax. The cardiac silhouette is within normal limits. No pneumoperitoneum. Abdomen: Nonspecific bowel gas pattern with gaseous distention throughout the large and small bowel. No suspicious calcifications. Visualized solid organ contours appear normal. Bones: No suspicious bony lesions. IMPRESSION: Nonspecific bowel gas pattern. Dictated by: Remi Julian M.D. on 07/05/2021 at 16:50 Approved by: Remi Julian M.D. on 07/05/2021 at 16:54
[2021-07-05 20:20] LABS: INR 3.3 (0.9-1.3); Prothrombin Time 38.3 SECONDS (10.1-12.7)
[2021-07-05 20:21] LABS: Add Manual Diff / Slide Review NO; Basophils Absolute Auto 200 /uL (0-100); Basophils Percent Auto 1.5 % (0-2); Eosinophils Absolute Auto 100 /uL (0-450); Eosinophils Percent Auto 0.7 % (2-4); Hematocrit 39.7 % (36-46); Hemoglobin 13.2 g/dL (12.0-16.0); Lymphocytes Absolute Auto 2400 /uL (1100-4500); Lymphocytes Percent Auto 19.1 % (25-40); Mean Corpuscular HGB Conc 33.3 % (30-36); Mean Corpuscular Hemoglobin 32.2 PG (26-34); Mean Corpuscular Volume 96.6 fL (80-100); Monocytes Absolute Auto 1400 /uL (0-900); Monocytes Percent Auto 11.3 % (3-14); Neutrophils Absolute Auto 8600 /uL (1500-7000); Neutrophils Percent Auto 67.4 % (50-75); Platelet Count 312 X10^3/uL (150-400); Red Blood Cell Count 4.11 X10^6/uL (4.0-5.2); Red Cell Distribution Width 17.3 % (11.6-14.8); White Blood Cell Count 12.7 X10^3/uL (4.5-11.0)
[2021-07-05 20:23] LABS: PTT Partial Thromboplastin Tim 47 SECONDS (26.4-36.2)
[2021-07-05 20:24] LABS: Alanine Aminotransferase 26 IU/L (<35); Albumin 4.4 g/dL (3.5-5.0); Albumin Globulin Ratio 1.2 (1.0-2.8); Alkaline Phosphatase 83 U/L (38-126); Aspartate Aminotransferase 37 IU/L (14-36); BUN Creatinine Ratio 20.6 (6-22); Bilirubin Total 0.9 mg/dL (0.2-1.3); Blood Urea Nitrogen 13 mg/dL (7-17); Calcium 9.8 mg/dL (8.4-10.2); Carbon Dioxide 31 mmol/L (22-32); Chloride 101 mmol/L (98-107); Estimated Glomerular Filt Rate > 60.0 mL/min (>60); Globulin 3.8 g/dL (1.7-4.1); Glucose 101 mg/dL (80-110); HEMOLYSIS 19 (0-50); Lipase 96 U/L (23-300); Potassium 4.1 mmol/L (3.4-5.1); Sodium 136 mmol/L (137-145); Total Protein 8.2 g/dL (6.3-8.2)
--- NOTE | 2021-07-05 20:40 | ED_ITS ---
HPI - General Adult General Chief complaint: Abdominal Pain Stated complaint: CONSTIPATION [id number] Time Seen by Provider: 07/05/21 20:22 Source: patient Mode of arrival: Wheelchair History of Present Illness HPI narrative: Patient is an 86-year-old female. Has a longstanding history of issues with constipation. She does not take a daily laxative. Several days ago she started to have issues with not being able to have bowel movements. She went to an outside facility. Had a CT scan performed. Was diagnosed with the urinary tract infection. Was sent home with antibiotics. She returns today after being seen earlier today by her primary provider. She reports some nausea but no vomiting. She states she has not had a regular bowel movement in greater than 1 week. She did try some MiraLax. Had some loose stools earlier in the day. No urinary symptoms. Does feel like her abdomen is distended. No fevers. No prior abdominal surgeries. Related Data Home Medications Medication Instructions Recorded Confirmed ascorbic acid (vitamin C) 500 mg 500 mg PO QDAY #0 09/08/17 07/05/21 tablet calcium citrate 250 mg 2 ea PO DAILY #0 09/08/17 07/05/21 calcium-vitamin D3 5 mcg (200 unit) tablet (Citracal Regular) cyanocobalamin (vitamin B-12) 500 500 mcg PO DAILY #0 09/08/17 07/05/21 mcg lozenges (Vitamin B-12) magnesium oxide 400 mg PO DAILY #0 09/08/17 07/05/21 multivitamin (Multiple Vitamins) 1 tab PO QDAY #0 09/08/17 07/05/21 omeprazole 20 mg capsule,delayed 20 mg PO QDAY@0600 #0 09/08/17 07/05/21 release tramadol 50 mg tablet 50 mg PO ONCE 11/09/17 07/05/21 warfarin 3 mg tablet 3 mg PO DAILY 10/11/18 07/05/21 budesonide 180 mcg/actuation 1 inhalation INHALATION DAILY 08/27/19 07/05/21 breath activated powder inhaler (Pulmicort Flexhaler) metoprolol succinate 25 mg 25 mg PO DAILY 08/27/19 07/05/21 tablet,extended release 24 hr aspirin 81 mg tablet,delayed 81 mg PO DAILY 12/15/20 07/05/21 release (Adult Aspirin Regimen) Estradiol pearls 10 mcg VAGINAL 2XW 03/17/21 07/05/21 atorvastatin 40 mg tablet 40 mg PO DAILY 07/05/21 07/05/21 cephalexin 500 mg capsule 500 mg PO Q6HR 07/05/21 07/05/21 Allergies Allergy/AdvReac Type Severity Reaction Status Date / Time pramipexole [From MIRAPEX] Allergy Severe NAUSEA/ Verified 03/25/21 15:14 PASSED OUT Review of Systems Constitutional Constitutional: Denies fever(s) and Denies headache(s) ENT Ears, Nose, Mouth, and Throat: Denies headache(s) Cardiovascular Cardiovascular: Denies chest pain and Denies dyspnea Respiratory Respiratory: Denies dyspnea Gastrointestinal Gastrointestinal: Reports as per HPI and Reports system reviewed and no additional complaints, except as documented Genitourinary Genitourinary: Denies dysuria Musculoskeletal Musculoskeletal: Reports system reviewed and no additional complaints, except as documented Integumentary/Breasts Skin/Breast: Reports system reviewed and no additional complaints, except as documented Neurologic Neurologic: Denies headache(s) Hematologic/Lymphatic On Anticoagulants: No Allergic/Immunologic Allergic/Immunologic: Reports system reviewed and no additional complaints, except as documented Patient History Medical History Age related osteoporosis Anemia Arthritis Degenerative lumbar spinal stenosis Headache Pessary maintenance Vaginal prolapse Surgical History History of carpal tunnel repair History of sinus surgery History of spinal fusion History of tonsillectomy Status post epidural steroid injection (12/12/17) Family History Mother Heart disease Diabetes mellitus Breast cancer Father Osteoporosis Stroke Brother Heart disease Brother Diabetes mellitus Social History household members: spouse Smoking Status: Never smoker alcohol intake: never Smoking Status: Never smoker Exam Initial Vital Signs Initial Vital Signs: Vital Signs Temperature 98.5 F 07/05/21 16:28 Pulse Rate 89 07/05/21 16:28 Respiratory Rate 18 07/05/21 16:28 Blood Pressure 168/80 H 07/05/21 16:28 Pulse Oximetry 100 07/05/21 16:28 Const General: cooperative, comfortable and well developed [facility] Head: normal to inspection and normocephalic Resp Effort & Inspection: normal respiratory effort Auscultation: clear to auscultation bilaterally Cardio Rate: regular rate Rhythm: regular rhythm GI Inspection: distended Palpation: soft, No firm and tender (Generalized) Skin General: no rashes or lesions noted Neuro General: patient alert, patient awake, patient oriented x3 and moves all extremities Extrem General: normal to inspection and capillary refill normal Psych Appearance: grossly normal and well kempt Course Orders Ordered: ED Orders 07/05/21 20:00 Lactate (Lactic Acid) Stat 07/05/21 20:01 COVID19 - ADMIT ([facility] [employer] swab/PCR) Stat Complete Blood Count AUTO DIFF Stat Comprehensive Metabolic Panel Stat Lipase Stat Partial Thromboplastin Time Stat Prothrombin Time INR Stat 07/05/21 20:41 CT abdomen pelvis w con Stat 07/05/21 22:17 Consult to General Surgery Stat 07/05/21 22:27 Urine Culture Stat 07/05/21 22:45 Blood Culture Stat Acetaminophen (Acetaminophen 325 Mg Tablet) 650 mg PO Q6HR PRN PRN Reason: Fever/Mild Pain (1-3) Sodium Chloride (Normal Saline 0.9%) 1,000 mls @ 125 mls/hr IV CONT VEENA Last Admin: 07/05/21 23:20 Dose: 125 mls/hr Documented by: YULI Morphine Sulfate (Morphine 2 Mg/Ml Inj) 2 mg IV Q4HR PRN PRN Reason: Pain, Mild (1-3) Ondansetron HCl (Ondansetron 4 Mg/2 Ml Inj) 4 mg IV Q4HR PRN PRN Reason: Nausea And Vomiting Discontinued Medications Sodium Chloride (Normal Saline 0.9%) 1,000 mls @ 500 mls/hr IV BOLUS ONE Stop: 07/05/21 23:36 Last Admin: 07/05/21 22:37 Dose: 500 mls/hr Documented by: MARIA LUZ Morphine Sulfate (Morphine 4 Mg/Ml Inj) 4 mg IV NOW ONE Stop: 07/05/21 20:42 Last Admin: 07/05/21 20:49 Dose: 4 mg Documented by: MARIA LUZ Ondansetron HCl (Ondansetron 4 Mg/2 Ml Inj) 4 mg IV NOW ONE Stop: 07/05/21 20:42 Last Admin: 07/05/21 20:49 Dose: 4 mg Documented by: MARLENYIKE Polyethylene Glycol (Polyethylene Glycol 3350 17 Gm Powd.Pack) 17 gm PO NOW ONE Stop: 07/05/21 22:25 Last Admin: 07/05/21 23:20 Dose: 17 gm Documented by: YULI Vital Signs Vital signs: Vital Signs - 8 hr 07/05/21 19:56 07/05/21 20:00 07/05/21 20:03 Pulse Rate 93 H 90 80 Respiratory Rate 20 22 Blood Pressure 179/83 H 177/74 H Pulse Oximetry 99 100 99 07/05/21 20:30 07/05/21 21:00 07/05/21 21:08 Pulse Rate 94 H 101 H 91 H Respiratory Rate 24 27 H Blood Pressure 191/87 H 184/71 H Pulse Oximetry 100 99 99 07/05/21 21:30 07/05/21 21:31 07/05/21 22:00 Pulse Rate 89 88 80 Respiratory Rate 28 H 21 20 Blood Pressure 115/57 L 113/59 L Pulse Oximetry 93 96 95 07/05/21 22:30 Pulse Rate 91 H Respiratory Rate 29 H Blood Pressure Pulse Oximetry 99 Medical Decision Making Lab Data Lab results reviewed: Yes I reviewed the patient's lab results. Result diagrams: 07/05/21 20:01 07/05/21 20:01 Labs: Lab Results 07/05/21 07/05/21 07/05/21 Range/Units 20:00 20:01 20:01 WBC 12.7 H (4.5-11.0) X10^3/uL RBC 4.11 (4.0-5.2) X10^6/uL Hgb 13.2 (12.0-16.0) g/dL Hct 39.7 (36-46) % MCV 96.6 (80-100) fL MCH 32.2 (26-34) PG MCHC 33.3 (30-36) % RDW 17.3 H (11.6-14.8) % Plt Count 312 (150-400) X10^3/uL Neut % (Auto) 67.4 (50-75) % Lymph % (Auto) 19.1 L (25-40) % [place] % (Auto) 11.3 (3-14) % Eos % (Auto) 0.7 L (2-4) % Baso % (Auto) 1.5 (0-2) % Neut # (Auto) 8600 H (6500-8475) /uL Lymph # (Auto) 2400 (8624-1627) /uL [place] # (Auto) 1400 H (0-900) /uL Eos # (Auto) 100 (0-450) /uL Baso # (Auto) 200 H (0-100) /uL PT 38.3 H (10.1-12.7) SECONDS INR 3.3 H (0.9-1.3) APTT 47 H (26.4-36.2) SECONDS Sodium (137-145) mmol/L Potassium (3.4-5.1) mmol/L Chloride (98-107) mmol/L Carbon Dioxide (22-32) mmol/L BUN (7-17) mg/dL Creatinine (0.52-1.04) mg/dL Estimated GFR (>60) mL/min BUN/Creatinine Ratio (6-22) Glucose (80-110) mg/dL Lactate 1.1 (0.7-2.1) mmol/L Calcium (8.4-10.2) mg/dL Total Bilirubin (0.2-1.3) mg/dL AST (14-36) IU/L ALT (<35) IU/L Alkaline Phosphatase (38-126) U/L Total Protein (6.3-8.2) g/dL Albumin (3.5-5.0) g/dL Globulin (1.7-4.1) g/dL Albumin/Globulin Ratio (1.0-2.8) Lipase (23-300) U/L SARS-CoV-2 (PCR) (Negative) 07/05/21 07/05/21 Range/Units 20:01 20:01 WBC (4.5-11.0) X10^3/uL RBC (4.0-5.2) X10^6/uL Hgb (12.0-16.0) g/dL Hct (36-46) % MCV (80-100) fL MCH (26-34) PG MCHC (30-36) % RDW (11.6-14.8) % Plt Count (150-400) X10^3/uL Neut % (Auto) (50-75) % Lymph % (Auto) (25-40) % [place] % (Auto) (3-14) % Eos % (Auto) (2-4) % Baso % (Auto) (0-2) % Neut # (Auto) (3619-5441) /uL Lymph # (Auto) (7966-0494) /uL [place] # (Auto) (0-900) /uL Eos # (Auto) (0-450) /uL Baso # (Auto) (0-100) /uL PT (10.1-12.7) SECONDS INR (0.9-1.3) APTT (26.4-36.2) SECONDS Sodium 136 L (137-145) mmol/L Potassium 4.1 (3.4-5.1) mmol/L Chloride 101 (98-107) mmol/L Carbon Dioxide 31 (22-32) mmol/L BUN 13 (7-17) mg/dL Creatinine 0.63 (0.52-1.04) mg/dL Estimated GFR > 60.0 (>60) mL/min BUN/Creatinine Ratio 20.6 (6-22) Glucose 101 (80-110) mg/dL Lactate (0.7-2.1) mmol/L Calcium 9.8 (8.4-10.2) mg/dL Total Bilirubin 0.9 (0.2-1.3) mg/dL AST 37 H (14-36) IU/L ALT 26 (<35) IU/L Alkaline Phosphatase 83 (38-126) U/L Total Protein 8.2 (6.3-8.2) g/dL Albumin 4.4 (3.5-5.0) g/dL Globulin 3.8 (1.7-4.1) g/dL Albumin/Globulin Ratio 1.2 (1.0-2.8) Lipase 96 (23-300) U/L SARS-CoV-2 (PCR) Negative (Negative) Urine Dip Bedside Urine Glucose Negative Bedside Urine Bilirubin - Negative Bedside Urine Ketone - Negative Urine Specific [place] 1.010 Bedside Urine Occult Blood - Negative Bedside Urine pH 7.0 Bedside Urine Protein - Negative Bedside Urine Urobilinogen - Negative Bedside Urine Nitrite - Negative Bedside Urine Leukocytes - Negative Esterase Point of care testing: Urine Dip Bedside Urine Glucose Negative Bedside Urine Bilirubin - Negative Bedside Urine Ketone - Negative Urine Specific [place] 1.010 Bedside Urine Occult Blood - Negative Bedside Urine pH 7.0 Bedside Urine Protein - Negative Bedside Urine Urobilinogen - Negative Bedside Urine Nitrite - Negative Bedside Urine Leukocytes - Negative Esterase Imaging Data Abdominal x-ray: Radiologist's Impression: [address] [address] XRay Report Signed Patient: Isaac Lemus MR#: [id number] : 1935 Acct:[id number] Age/Sex: 86 / F Date of Service: 07/05/21 Loc: ED Accession Number: [id number] ?? Procedure: XR acute abdomen series Ordering Provider: Lexi Grant MD PROCEDURE:? XR ACUTE ABDOMEN SERIES ? INDICATIONS:? constipation x 7 days, ? bowel obstruction ? TECHNIQUE:? One view chest and two views of the abdomen were acquired.? ? COMPARISON:? [facility], , ABDOMEN 3 VIEW, 05/03/2017, 17:07. ? FINDINGS:? ? Surgical changes and devices:? Sternotomy wires are well aligned. ? Chest:? Indistinctness of the lower lung zones, likely secondary to clothing artifact.? No consolidation, pleural effusion, or pneumothorax.? The cardiac silhouette is within normal limits.? No pneumoperitoneum.? ? Abdomen:? Nonspecific bowel gas pattern with gaseous distention throughout the large and small bowel.? No suspicious calcifications.? Visualized solid organ contours appear normal.? ? Bones:? No suspicious bony lesions.? ? IMPRESSION:? Nonspecific bowel gas pattern. ? ? Dictated by: Remi Julian M.D. on 07/05/2021 at 16:50 ? ? Approved by: Remi Julian M.D. on 07/05/2021 at 16:54?? CT scan - abdomen/pelvis: Radiologist's Impression: [address] [address] [address] Scan Report Signed Patient: Isaac Lemus MR#: [id number] : 1935 Acct:[id number] Age/Sex: 86 / F Date of Service: 07/05/21 Loc: ED Accession Number: [id number] ?? Procedure: CT abdomen pelvis w con Ordering Provider: Efra Gonzalez D.O. PROCEDURE:? CT ABDOMEN PELVIS W CON ? INDICATIONS:? Eval for bowel obstruction ? TECHNIQUE:? After the administration of oral and IV contrast, axial sections were acquired from the lung bases to the pubic symphysis.? Coronal and sagittal reformats were performed.? For radiation dose reduction, the following was used:? automated exposure control, adjustment of mA and/or kV according to patient size. ? COMPARISON:? [facility], CR, XR ACUTE ABDOMEN SERIES, 07/05/2021, 16:27.? Outside Film, CT, CT ANGIO CHEST ABDOMEN PELVIS, 07/04/2018, 13:20. ? FINDINGS:? Image quality:? Excellent.? ? Lung bases:? There is mild dependent atelectasis bilaterally.? A moderate-sized hiatal hernia is present.? A small subpleural 0.3 cm nodule in the left lower lobe on series 3, image 5 appears unchanged from the prior study.? ? Heart:? Heart is normal in size.? 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 ? ? ABDOMEN: Liver:? There is mild focal fatty infiltration in the anterior left hepatic lobe.? Gallbladder:? Multiple calcified gallstones are present in the gallbladder without wall thickening or pericholecystic fluid. Biliary ducts:? No biliary ductal dilatation.? ? Pancreas:? Unremarkable.? ? Spleen:? Normal in size.? ? Adrenal Glands:? No adrenal nodules.? ? Kidneys and Ureters:? No hydronephrosis.? There are extrarenal pelves bilater ally.? ? Stomach and Bowel:? There is mild stool and gas distention of multiple small bowel loops throughout the abdomen without a definite focal transition point to suggest obstruction.? No abnormal bowel wall thickening.? There is marked stool and gas distention within the colon most prominent in the ascending and transverse colon.? There is moderate stool distention distally in the rectosigmoid colon.? No pericecal inflammatory changes to suggest appendicitis. Peritoneum:? No abnormal intraperitoneal fluid.? No free air.? ? Ventral Wall: ? No hernia.? Abdominal Nodes:? No retroperitoneal or mesenteric adenopathy by size criteria.? Vessels:? Aorta and inferior vena cava are normal in size.? There is scattered atherosclerotic vascular calcification.? 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 The superior mesenteric artery appears patent.? The inferior mesenteric artery is not well visualized proximally suggestive of a high-grade stenosis at its origin. ? PELVIS: Pelvic Organs:? Unremarkable.? ? Bladder:? Unremarkable.? ? Pelvic Nodes: No enlarged lymph nodes.? Miscellaneous: No inguinal hernias are seen. ? ? ? Bones:? There is a moderate compression deformity involving the superior and inferior endplates of the T12 vertebral body of indeterminate acuity.? No retropulsed fragments in the spinal canal.? Inferior endplate scalloping also demonstrated within the L3 vertebral body likely secondary to a Schmorl's node. ? ? IMPRESSION:? ? 1. Mild distention of multiple small bowel loops without a definite focal transition point to suggest obstruction.? Marked stool and gas distention also demonstrated within the proximal colon.? The constellation of findings likely represent an ileus with stool impaction or constipation in the colon.? 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 Recommend correlation with clinical history and laboratory values. ? 2. Moderate endplate compression deformity of the T12 vertebral body of indeterminate acuity.? No retropulsed fragments in the spinal canal. ? 3. Cholelithiasis without CT evidence of cholecystitis.? ? Dictated by: Twin Townsend M.D. on 07/05/2021 at 21:10 ? ? Approved by: Twin Townsend M.D. on 07/05/2021 at 21:32 ? PATIENT NAME:? ISAAC LEMUS :? 1935 MRN:? [id number] ACCOUNT #: ? [id number] ACCESSION#:? [id number] EXAM DATE: 07/05/2021 ? 20:54 ORD. DRSchuyler:? EFRA GONZALEZ M.D. CC: ? ? MODALITY: CT PATIENT TYPE: ER CONTRAST MEDIA: 100cc Isovue 300? STATION ID: [id number] FLUORO TIME:? PATIENT NAME:? ISAAC LEMUS :? 1935 MRN:? [id number] ACCOUNT #: ? [id number] ACCESSION#:? [id number] EXAM DATE: 07/05/2021 ? 20:54 ORD. DRSchuyler:? EFRA GONZALEZ M.D. CC: ? ? MODALITY: CT PATIENT TYPE: ER CONTRAST MEDIA: 100cc Isovue 300? STATION ID: [id number] FLUORO TIME:? ? ? ECG Data Attestation: I personally reviewed and interpreted this ECG as follows: Interpretation: Ventricular paced Rate [address] T wave changes MDM Narrative Medical decision making narrative: Distended abdomen. Was soft but generalized tenderness. CT scan shows right- sided colonic stool. No overt signs of obstruction however given her presentation that would be a concern today. I have low suspicion for ischemic bowel. I did discuss the case with Dr. Bernard with General surgery who does agree to see the patient is a inpatient but does not feel there is any emergent surgical issue. I discussed the case with Dr. Ziegler who is the patient's primary doctor who will admit for further evaluation and treatment. I discussed the need for admission with the patient and her . They both expressed understanding and agreement Discharge Plan Departure Patient Disposition: Admitted as Observation Clinical Impression: Constipation, Abdominal pain Admit Date/Time: 07/05/21 22:31 Admit Provider: Fidelia Ziegler
--- NOTE | 2021-07-05 20:41 | DI.CT.S_ITS ---
PROCEDURE: CT ABDOMEN PELVIS W CON INDICATIONS: Eval for bowel obstruction TECHNIQUE: After the administration of oral and IV contrast, axial sections were acquired from the lung bases to the pubic symphysis. Coronal and sagittal reformats were performed. For radiation dose reduction, the following was used: automated exposure control, adjustment of mA and/or kV according to patient size. COMPARISON: [facility], CR, XR ACUTE ABDOMEN SERIES, 07/05/2021, 16:27. Outside Film, CT, CT ANGIO CHEST ABDOMEN PELVIS, 07/04/2018, 13:20. FINDINGS: Image quality: Excellent. Lung bases: There is mild dependent atelectasis bilaterally. A moderate-sized hiatal hernia is present. A small subpleural 0.3 cm nodule in the left lower lobe on series 3, image 5 appears unchanged from the prior study. Heart: Heart is normal in size. There is a prosthetic aortic valve. Pacemaker leads are noted within the right atrium and right ventricle. ABDOMEN: Liver: There is mild focal fatty infiltration in the anterior left hepatic lobe. Gallbladder: Multiple calcified gallstones are present in the gallbladder without wall thickening or pericholecystic fluid. Biliary ducts: No biliary ductal dilatation. Pancreas: Unremarkable. Spleen: Normal in size. Adrenal Glands: No adrenal nodules. Kidneys and Ureters: No hydronephrosis. There are extrarenal pelves bilaterally. Stomach and Bowel: There is mild stool and gas distention of multiple small bowel loops throughout the abdomen without a definite focal transition point to suggest obstruction. No abnormal bowel wall thickening. There is marked stool and gas distention within the colon most prominent in the ascending and transverse colon. There is moderate stool distention distally in the rectosigmoid colon. No pericecal inflammatory changes to suggest appendicitis. Peritoneum: No abnormal intraperitoneal fluid. No free air. Ventral Wall: No hernia. Abdominal Nodes: No retroperitoneal or mesenteric adenopathy by size criteria. Vessels: Aorta and inferior vena cava are normal in size. There is scattered atherosclerotic vascular calcification. 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 The superior mesenteric artery appears patent. The inferior mesenteric artery is not well visualized proximally suggestive of a high-grade stenosis at its origin. PELVIS: Pelvic Organs: Unremarkable. Bladder: Unremarkable. Pelvic Nodes: No enlarged lymph nodes. Miscellaneous: No inguinal hernias are seen. Bones: There is a moderate compression deformity involving the superior and inferior endplates of the T12 vertebral body of indeterminate acuity. No retropulsed fragments in the spinal canal. Inferior endplate scalloping also demonstrated within the L3 vertebral body likely secondary to a Schmorl's node. IMPRESSION: 1. Mild distention of multiple small bowel loops without a definite focal transition point to suggest obstruction. Marked stool and gas distention also demonstrated within the proximal colon. The constellation of findings likely represent an ileus with stool impaction or constipation in the colon. 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 Recommend correlation with clinical history and laboratory values. 2. Moderate endplate compression deformity of the T12 vertebral body of indeterminate acuity. No retropulsed fragments in the spinal canal. 3. Cholelithiasis without CT evidence of cholecystitis. Dictated by: Twin Townsend M.D. on 07/05/2021 at 21:10 Approved by: Twin Townsend M.D. on 07/05/2021 at 21:32 PATIENT NAME: ISAAC ROSSI : 1935 EXAM DATE: 07/05/2021 20:54 ORD. : ZULEYMA ZAMORA M.D. CC: MODALITY: CT PATIENT TYPE: ER CONTRAST MEDIA: 100cc Isovue 300 STATION ID: [id number] FLUORO TIME: PATIENT NAME: ISAAC ROSSI : 1935 EXAM DATE: 07/05/2021 20:[address] ZULEYMA ZAMORA M.D. CC: MODALITY: CT PATIENT TYPE: ER CONTRAST MEDIA: 100cc Isovue 300 STATION ID: [id number] FLUORO TIME:
[2021-07-05] MEDS: ONDANSETRON 4 MG/2 ML INJ IV (20:49)
[2021-07-05] MEDS: MORPHINE 4 MG/ML INJ IV (20:49)
[2021-07-05 21:15] LABS: COVID19 - ADMIT (NP swab/PCR) Negative (Negative)
[2021-07-05 21:55] LABS: Lactate (Lactic Acid) 1.1 mmol/L (0.7-2.1)
[2021-07-05] MEDS: SODIUM CHLORIDE 0.9% 1,000 ML 500 ML IV (22:37)
[2021-07-05] MEDS: SODIUM CHLORIDE 0.9% 1,000 ML 125 ML IV (23:00)
[2021-07-05] MEDS: polyethylene glycoL 3350 17 GM POWD.PACK PO (23:20)
--- NOTE | 2021-07-06 00:50 | PC.NURSE ---
Patient arrived from the ED at 2255 via bed and was transferred via slider board. Patient is A/O, on RA and denies any pain at this time d/t getting pain medication in the ED. Home medications were reviewed with the patient using the list brought in by the patient. Patient was oriented to room, fall precautions, and call light. Bed in lowest and locked position, and call light and belongings are within reach. No other complaints at this time.
[2021-07-06 04:30] VITALS: BP 134/72; PULSE 75; RESP 18; TEMP 36.6; O2SAT 97
[2021-07-06] MEDS: SODIUM CHLORIDE 0.9% 1,000 ML 125 ML IV ×2 (06:04→14:08)
[2021-07-06 07:03] LABS: Add Manual Diff / Slide Review NO; Basophils Absolute Auto 100 /uL (0-100); Basophils Percent Auto 1.4 % (0-2); Eosinophils Absolute Auto 100 /uL (0-450); Eosinophils Percent Auto 1.5 % (2-4); Hematocrit 34.5 % (36-46); Hemoglobin 11.5 g/dL (12.0-16.0); Lymphocytes Absolute Auto 1900 /uL (1100-4500); Lymphocytes Percent Auto 21.7 % (25-40); Mean Corpuscular HGB Conc 33.3 % (30-36); Mean Corpuscular Hemoglobin 32.3 PG (26-34); Mean Corpuscular Volume 96.9 fL (80-100); Monocytes Absolute Auto 1200 /uL (0-900); Monocytes Percent Auto 13.7 % (3-14); Neutrophils Absolute Auto 5300 /uL (1500-7000); Neutrophils Percent Auto 61.7 % (50-75); Platelet Count 279 X10^3/uL (150-400); Red Blood Cell Count 3.56 X10^6/uL (4.0-5.2); Red Cell Distribution Width 17.7 % (11.6-14.8); White Blood Cell Count 8.6 X10^3/uL (4.5-11.0)
[2021-07-06 07:12] LABS: Prothrombin Time 35.4 SECONDS (10.1-12.7)
[2021-07-06 07:17] LABS: BUN Creatinine Ratio 21.7 (6-22); Blood Urea Nitrogen 13 mg/dL (7-17); Calcium 8.7 mg/dL (8.4-10.2); Carbon Dioxide 29 mmol/L (22-32); Chloride 107 mmol/L (98-107); Estimated Glomerular Filt Rate > 60.0 mL/min (>60); Glucose 81 mg/dL (80-110); HEMOLYSIS < 15 (0-50); Potassium 3.9 mmol/L (3.4-5.1); Sodium 138 mmol/L (137-145)
[2021-07-06] MEDS: PANTOPRAZOLE 40 MG VIAL 20 MG IV (09:17)
[2021-07-06 09:18] VITALS: BP 115/49; PULSE 67
[2021-07-06] MEDS: MAGNESIUM OXIDE 400 MG TABLET PO (09:18)
[2021-07-06] MEDS: METOPROLOL ER 25 MG TABLET PO (09:18)
[2021-07-06] MEDS: MAGNESIUM CITRATE 300 ML SOLUTION PO (10:33)
[2021-07-06] MEDS: BISACODYL 10 MG SUPP PR (10:33)
--- NOTE | 2021-07-06 11:32 | PM.CN ---
History of Present Illness Consult details Date Patient Seen: 07/06/21 Time Patient Seen: 11:32 Chief complaint: CONSTIPATION [id number] Narrative: 86 y.o woman admitted to the hospital for abdominal pain. She reports feeling bloated and with anorexia for several days. CT A/P obtained in ER demonstrates mildly dialted loops of small bowel and large volume of stool in the colon, possible ileus vs SBO although no transition point was identified. On admission WBC 13, normal lactate normal hemodynamics. This morning she feels much better is having flatus and less distended. Meds Home Medications and Allergies Home Medications Medication Instructions Recorded Confirmed Type ascorbic acid (vitamin C) 500 mg 500 mg PO QDAY #0 09/08/17 07/05/21 History tablet calcium citrate 250 mg 2 ea PO DAILY #0 09/08/17 07/05/21 History calcium-vitamin D3 5 mcg (200 unit) tablet (Citracal Regular) cyanocobalamin (vitamin B-12) 500 500 mcg PO DAILY #0 09/08/17 07/05/21 History mcg lozenges (Vitamin B-12) magnesium oxide 400 mg PO DAILY #0 09/08/17 07/05/21 History multivitamin (Multiple Vitamins) 1 tab PO QDAY #0 09/08/17 07/05/21 History omeprazole 20 mg capsule,delayed 20 mg PO QDAY@0600 #0 09/08/17 07/05/21 History release tramadol 50 mg tablet 50 mg PO ONCE 11/09/17 07/05/21 History warfarin 3 mg tablet 3 mg PO DAILY 10/11/18 07/05/21 History budesonide 180 mcg/actuation 1 inhalation INHALATION DAILY 08/27/19 07/05/21 History breath activated powder inhaler (Pulmicort Flexhaler) metoprolol succinate 25 mg 25 mg PO DAILY 08/27/19 07/05/21 History tablet,extended release 24 hr aspirin 81 mg tablet,delayed 81 mg PO DAILY 12/15/20 07/05/21 History release (Adult Aspirin Regimen) Estradiol pearls 10 mcg VAGINAL 2XW 03/17/21 07/05/21 History atorvastatin 40 mg tablet 40 mg PO DAILY 07/05/21 07/05/21 History cephalexin 500 mg capsule 500 mg PO Q6HR 07/05/21 07/05/21 History Allergies Allergy/AdvReac Type Severity Reaction Status Date / Time pramipexole [From MIRAPEX] Allergy Severe NAUSEA/ Verified 03/25/21 15:14 PASSED OUT Exam Vital Signs (past 8 hours): - 07/06/21 04:30 07/06/21 09:18 Temperature 98 F Pulse Rate 75 67 Respiratory Rate 18 Blood Pressure 134/72 115/49 L Pulse Oximetry 97 Oxygen Delivery Method Room Air Oxygen Flow Rate 0 Narrative Exam Narrative: Gen-elderly woman alert and oriented Chest-non labored resp Abdomen-Soft, moderately distended no peritonitis Objective Labs Result Diagrams: 07/06/21 06:35 07/06/21 06:35 Labs: Laboratory Results - last 24 hr 07/05/21 07/05/21 07/05/21 20:00 20:01 20:01 WBC 12.7 H RBC 4.11 Hgb 13.2 Hct 39.7 MCV 96.6 MCH 32.2 MCHC 33.3 RDW 17.3 H Plt Count 312 Neut % (Auto) 67.4 Lymph % (Auto) 19.1 L Tompkins % (Auto) 11.3 Eos % (Auto) 0.7 L Baso % (Auto) 1.5 Neut # (Auto) 8600 H Lymph # (Auto) 2400 Tompkins # (Auto) 1400 H Eos # (Auto) 100 Baso # (Auto) 200 H PT 38.3 H INR 3.3 H APTT 47 H Sodium Potassium Chloride Carbon Dioxide BUN Creatinine Estimated GFR BUN/Creatinine Ratio Glucose Lactate 1.1 Calcium Total Bilirubin AST ALT Alkaline Phosphatase Total Protein Albumin Globulin Albumin/Globulin Ratio Lipase SARS-CoV-2 (PCR) 07/05/21 07/05/21 07/06/21 20:01 20:01 06:35 WBC 8.6 RBC 3.56 L Hgb 11.5 L Hct 34.5 L MCV 96.9 MCH 32.3 MCHC 33.3 RDW 17.7 H Plt Count 279 Neut % (Auto) 61.7 Lymph % (Auto) 21.7 L Tompkins % (Auto) 13.7 Eos % (Auto) 1.5 L Baso % (Auto) 1.4 Neut # (Auto) 5300 Lymph # (Auto) 1900 Tompkins # (Auto) 1200 H Eos # (Auto) 100 Baso # (Auto) 100 PT INR APTT Sodium 136 L Potassium 4.1 Chloride 101 Carbon Dioxide 31 BUN 13 Creatinine 0.63 Estimated GFR > 60.0 BUN/Creatinine Ratio 20.6 Glucose 101 Lactate Calcium 9.8 Total Bilirubin 0.9 AST 37 H ALT 26 Alkaline Phosphatase 83 Total Protein 8.2 Albumin 4.4 Globulin 3.8 Albumin/Globulin Ratio 1.2 Lipase 96 SARS-CoV-2 (PCR) Negative 07/06/21 07/06/21 06:35 06:35 WBC RBC Hgb Hct MCV MCH MCHC RDW Plt Count Neut % (Auto) Lymph % (Auto) Tompkins % (Auto) Eos % (Auto) Baso % (Auto) Neut # (Auto) Lymph # (Auto) Tompkins # (Auto) Eos # (Auto) Baso # (Auto) PT 35.4 H INR 3.0 H APTT Sodium 138 Potassium 3.9 Chloride 107 Carbon Dioxide 29 BUN 13 Creatinine 0.60 Estimated GFR > 60.0 BUN/Creatinine Ratio 21.7 Glucose 81 Lactate Calcium 8.7 Total Bilirubin AST ALT Alkaline Phosphatase Total Protein Albumin Globulin Albumin/Globulin Ratio Lipase SARS-CoV-2 (PCR) [facility] Medical History Age related osteoporosis Anemia Arthritis Degenerative lumbar spinal stenosis Headache Pessary maintenance Vaginal prolapse Surgical History History of carpal tunnel repair History of sinus surgery History of spinal fusion History of tonsillectomy Status post epidural steroid injection (12/12/17) Family History Mother Heart disease Diabetes mellitus Breast cancer Father Osteoporosis Stroke Brother Heart disease Brother Diabetes mellitus Social History household members: spouse Tobacco & Substance Use Smoking Status: Never smoker alcohol intake: never Assessment & Plan Assessment and plan (1) Constipation: Status: Acute Plan 86 year old woman admitted to the hospital for abdominal pain secondary to constipation. CT A/P which I have personally reviewed demonstrates mildly dialted loops of small bowel and large stool volume within the colon there is no evidence of small bowel obstruction. She is improved from admission and has return of bowel function. -Clear liquids advance as tolerated -Bowel regimen with Magcitrate and Bisacodyl NE Time Spent With Patient Critical Care time: I spent a total of [] minutes of critical care time on this patient's care today; this time is exclusive of procedural time.
[2021-07-06 12:00] VITALS: BP 121/55; PULSE 65; RESP 14; TEMP 36.3; O2SAT 98
[2021-07-06 14:15] LABS: INR 2.8 (0.9-1.3); Prothrombin Time 32.4 SECONDS (10.1-12.7)
--- NOTE | 2021-07-06 16:11 | CM.DANOTE ---
DCP Brief assessment: patient is 86 yr old female who is here for possible SBO. Patient bowel obstruction is now clear. Patient currently lives with her in [place]. CM attempted to meet with the patient at the bedside but she was with PT, and ortho during Cm attempted visits. according to EMR patient is Alert and oriented x3 and is independent with all ADLS and her spouse does the driving . I: Medicare and [employer] Plan: DC home when medically stable with . Cm department will follow up to make sure DC plan is appropriate prior to patients DC Monserrat Akers RN Case manger Discharge Planning/Care Management CM Discharge Assessment Start: 07/06/21 15:56 Freq: Status: Active Protocol: Document 07/06/21 15:56 HS (Rec: 07/06/21 16:11 HS [id number]) Discharge Planning Assessment Assigned Wood Crew Supervisor Monserrat Akers RNschool cook DPOA/Assigned Designee Name Elroy Lemus () Contact Information [phone] Advance Directives? Yes Advance Directives on File Yes History Provided By Patient,Medical Record Prior Living Arrangements House Household Members spouse Type of transporation used prior to Relies on Others admit Caregiver for Another No Barriers to Discharge No Discharge Plan Home Whiteboard Updated in Patient Room with Yes name and ext. # of Wood Crew Supervisor Review Status In Process Next Review Type Continued Stay Review
--- NOTE | 2021-07-06 16:15 | PT.IIE ---
Current Diagnoses Constipation, unspecified (07/05/21) Surgical History (Last Reviewed 07/06/21 @ 11:36 by Perico Bernard MD) History of carpal tunnel repair History of spinal fusion History of tonsillectomy Medical History (Last Reviewed 07/06/21 @ 11:36 by Perico Bernard MD) Age related osteoporosis Anemia Arthritis Degenerative lumbar spinal stenosis Headache Pessary maintenance Vaginal prolapse Physical Therapy Inpatient Evaluation/Re-Eval M1 PT/OT-IP Prior Functional Status Start: 07/06/21 13:57 Freq: NEEDED Status: Active Protocol: Document 07/06/21 16:15 AW (Rec: 07/06/21 16:03 AW [id number]) Medical Review Prior Functional Status Medical History Reviewed Yes Communication WNL Mobility and Gait Pt reports independent mobility without assistive device. She has a FWW and uses it when having pain or feeling ill. She has a treadmill that she uses with some regularity and is able to sustain walking for 30 minutes. Pt denies history of falls. Activities of Daily Living and IADL's Independent with ADL's. Pt depends on her to drive although she does drive occasionally. She manages cooking, cleaning, laundry. Her spouse manages outside chores. Prior Functional Level (Other details) Pt had open heart surgery at in 2019 and was hospitalized for 2 weeks followed by a rehab stay at [facility]. Social History Household Members spouse Living Arrangements House Number of Floors (Floors) Two Floors Number of Stairs To Enter/Railing? 2 NORY with no railing. Pt is able to stay on the main level . Second floor features guest quarters and a common area. Home Environment Standard Height Toilet,Walk in Shower Home Equipment Front Wheel Walker,Shower Seat without Backrest,Long Handled Shoe Horn,Regional Education Manager,Sock Aid, Grab Bars In Shower Employment Status Retired Additional Social History Comment Pt states she has a flat bed and gets out on her left side. She has a chest of drawers she can hold on to for leverage to get out of bed if needed. She has no grab bars near toilet but is able to reach the vanity on the right side to assist up/down. Pt lives in [place] with her spouse, Elroy, who is 85 yo and has some health complications but has been able to provide all necessary assist up to this point. The two have children who reside in [facility], and [place]. M2 PT-IP Current Condition Start: 07/06/21 13:57 Freq: NEEDED Status: Active Protocol: Document 07/06/21 16:15 AW (Rec: 07/06/21 16:51 AW [id number]) Physical Therapy Current Condition Current Condition Evaluation Date 07/06/21 Treatment Diagnosis abdominal pain; constipation; impaired mobility and gait Onset Date 06/29/21 M3 PT-IP Subjective Start: 07/06/21 13:57 Freq: NEEDED Status: Active Protocol: Document 07/06/21 16:15 AW (Rec: 07/06/21 16:51 AW [id number]) Subjective Physical Therapy Visit Type Type Initial Evaluation Visit Start Time 15:40 Visit Stop Time 16:15 Total Visit Minutes 35 Physical Therapy Visit Comments Patient Comments Pt is sitting on the BSC as PT arrives. She is willing to participate with PT Patient Goals Return home with spouse support. Therapy Pain Assessment Pain When Pain Assessed During Mobility Pain Present Pain Present Pain Reported Location Abdomen Intensity 3 Scale Used Numeric (0 - 10) M4 PT-IP Mobility and Gait Start: 07/06/21 13:57 Freq: NEEDED Status: Active Protocol: Document 07/06/21 16:15 AW (Rec: 07/06/21 17:03 AW [id number]) PT-Bed Mobility Assessment Sit to Supine Sit to Supine Minimal Assistance,1 Person Assistance PT-Transfer Assessment Sit to and From Stand Sit to and from Stand Contact Guard Assistance,Use of Upper Extremities Equipment Transfer Assistive Device Gait Belt,Front Wheeled Walker Orthotic/Prosthetic Devices or Brace: No Transfers Transfer Destination Bed Transfer Technique pt amb with FWW Transfer Ability Level of Assist Contact Guard Assistance Comments Mobility Comments Pt was sitting on the commode as PT arrived. She had loose stool (RN aware) and was able to complete pericare without assist. BP was 121/55 HR 80. She stood CGA and used FWW to ambulate slowly around the room with min assist for obstacle clearance and walker management. She fatigued quickly and requested return to bed. She sat EOB and needed min assist for sit to supine. She was positioned with call light and tray table in reach. BP was 115/49 HR 71. Gait Assessment Gait Gait Assistance Required: Minimum Assistance,1 Person Assist Distance (Feet) 30 Assistive Devices Assistive Device Gait Belt,Front Wheeled Walker Orthotic/Prosthetic Devices or Brace: No Gait Deviations General Gait Pattern Antalgic,Flexed Trunk Factors Limiting Gait Function Factors Limiting Gait Function Decreased Activity Tolerance, Decreased Strength,Pain Comments Gait Comments Pt ambulated slowly with FWW, requiring assist for walker management and obstacle clearance. Stair Climbing Assessment Comments Stair Climbing Comments Not assessed due to pt fatigue . PT-Balance Assessment Sitting Balance and Reactions Static Sitting Balance Ability Good Dynamic Sitting Balance Ability Good Standing Balance and Reactions Static Standing Balance Ability Good Dynamic Standing Balance Ability Fair Device Used FWW M5 PT-IP Objective Assessments Start: 07/06/21 13:57 Freq: NEEDED Status: Active Protocol: Document 07/06/21 16:15 AW (Rec: 07/06/21 17:03 AW [id number]) Orientation Orientation/Cognition Level of Alertness Alert Orientation Name,Day of Week,Place, Situation Language Function Ability No Deficits Noted Safety Awareness Understands Safety Issues Memory Description No Deficits Noted Gross Range of Motion Lower Extremity ROM Assessment Within Functional Limits Strength Lower Extremity Strength Assessment Bilaterally Impaired Hip 4-/5 Knee 4+/5 ext; 4/5 flex Ankle 4/5 DF Sensation Assessment Sensation Gross Sensation WNL M6 PT-IP Treatment Start: 07/06/21 13:57 Freq: NEEDED Status: Active Protocol: Document 07/06/21 16:15 AW (Rec: 07/06/21 17:03 AW [id number]) Physical Therapy Treatment Education Education Provided Safety Other Treatments Other Treatment Performed Educated pt on importance of continued mobility for bowel function. Also recommended use of FWW at this time with which pt agrees. M7 PT-IP Assessment and Plan Start: 07/06/21 13:57 Freq: NEEDED Status: Active Protocol: Document 07/06/21 16:15 AW (Rec: 07/06/21 17:03 AW [id number]) PT Summary Assessment and Plan Potential Rehabilitation Potential Good Status of Condition at Evaluation Evolving Summary Impairments Pain,Strength,Balance,Bed Mobility,Transfers,Gait, Activity Tolerance Assessment Summary Irma is an 86 yo woman admitted with abdominal pain and chronic constipation. CT abdomen was negative for SBO. Pt has history of open heart surgery two years ago. She is independent at baseline but admits to walking slowly and carefully. She uses a FWW when feeling weak or ill. On assessment, pt required CGA to min assist for short bout of mobility using FWW. Primary limitation was abdominal pain and fatigue. PT anticipates pt will be safe to discharge home with spouse assist once medically stable. Depending on progress, pt may benefit from home health PT to improve strength and reduce falls risk . Goals Bed Mobility Goal Independent Transfer Goal Independent,Front Wheeled Walker Gait Goal Independent,Front Wheel Walker Gait Distance 250 Other Goals - up/down 2 steps without rail CGA - progress transfers and gait to IND without AD Days to Meet Goals 4 Frequency of Treatment Frequency Of Treatment Once a Day Treatment Plan Physical Therapy Treatment Plan Bed Mobility Training,Transfer Training,Gait Training, Therapeutic Exercise,Balance Retraining,Discharge Planning Other Recommendations and Next Treatment gait training with FWW, stairs Focus when able Recommendations To Nursing Amount of Assist Needed 1 Person Assist Discharge Recommendations PT Discharge Recommendations Home with Assistance,Home Health Transportation Needs at Discharge Private Vehicle
[2021-07-06 17:01] VITALS: O2SAT 98
--- NOTE | 2021-07-06 18:35 | PM.HP.1 ---
History of Present Illness History of Present Illness Date Patient Seen: 07/06/21 Time Patient Seen: 08:00 Date of Onset of Symptoms: 07/27/21 Chief complaint: CONSTIPATION [id number] Narrative: This is a very pleasant female who is well known to me presents originally to the clinic with a history of 8-10 days of worsening abdominal pain associated with increased abdominal distension, belching and worsening constipation. She has been evaluated in the emergency department at [facility] and underwent CT scan which showed evidence of high a stool volume but did not show other abnormalities. They thought that she had a UTI and they placed her on Keflex. She did not have any urinary symptoms. She then phoned our office in discussed with the doctor instructional aide on June 30 who recommended MiraLax. The patient has had continued symptoms with no bowel movements for 3-4 days and not passing gas and not able to eat much. She has become increasingly weak and having increasing abdominal pain. She was examined in the clinic and referred to the emergency department. The concern was for a bowel obstruction per her, partially. The patient was evaluated in the ER and three-view of the abdomen then subsequent CT scan showed no transition area of obstruction but did show a nonspecific bowel gas pattern with a large volume of stool and possible ileus. She initially had elevated white blood cell count but normal lactate and procalcitonin and no fever. Blood cultures and urine cultures are pending. She was admitted to the hospital. The antibiotics from June 28 were stopped as it had felt that she has been successfully treated for UTI if she truly had 1. 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 She does not smoke and does not use alcohol regularly She is up-to-date immunizations in [facility] COVID booster Social history: Patient is and lives with her , Elroy and in [place]. Patient has 2 children who she is close with. And are involved with care. They live in the [facility] area Family history: Patient's mom at 75. She had breast cancer, heart disease, diabetes Father from a stroke. He had osteoporosis Patient had a brother who at 49 from heart disease in a brother who from complications of diabetes at 72 Patient History Medical History Age related osteoporosis Anemia Arthritis Degenerative lumbar spinal stenosis Headache Pessary maintenance Vaginal prolapse Surgical History History of carpal tunnel repair History of sinus surgery History of spinal fusion History of tonsillectomy Status post epidural steroid injection (12/12/17) Family & Social History Family History Mother Heart disease Diabetes mellitus Breast cancer Father Osteoporosis Stroke Brother Heart disease Brother Diabetes mellitus Social History: household members spouse Prior Living Arrangements House Safety & Behavioral: Feels Safe in Current Yes Environment Suicidal Ideation Description None Suicide Plan Description No Plan Tobacco & Substance use: Smoking Status Never smoker alcohol intake never Substance Use Type does not use Meds Home Medications and Allergies Home Medications Medication Instructions Recorded Confirmed Type ascorbic acid (vitamin C) 500 mg 500 mg PO QDAY #0 09/08/17 07/05/21 History tablet calcium citrate 250 mg 2 ea PO DAILY #0 09/08/17 07/05/21 History calcium-vitamin D3 5 mcg (200 unit) tablet (Citracal Regular) cyanocobalamin (vitamin B-12) 500 500 mcg PO DAILY #0 09/08/17 07/05/21 History mcg lozenges (Vitamin B-12) magnesium oxide 400 mg PO DAILY #0 09/08/17 07/05/21 History multivitamin (Multiple Vitamins) 1 tab PO QDAY #0 09/08/17 07/05/21 History omeprazole 20 mg capsule,delayed 20 mg PO QDAY@0600 #0 09/08/17 07/05/21 History release tramadol 50 mg tablet 50 mg PO ONCE 11/09/17 07/05/21 History warfarin 3 mg tablet 3 mg PO DAILY 10/11/18 07/05/21 History budesonide 180 mcg/actuation 1 inhalation INHALATION DAILY 08/27/19 07/05/21 History breath activated powder inhaler (Pulmicort Flexhaler) metoprolol succinate 25 mg 25 mg PO DAILY 08/27/19 07/05/21 History tablet,extended release 24 hr aspirin 81 mg tablet,delayed 81 mg PO DAILY 12/15/20 07/05/21 History release (Adult Aspirin Regimen) Estradiol pearls 10 mcg VAGINAL 2XW 03/17/21 07/05/21 History atorvastatin 40 mg tablet 40 mg PO DAILY 07/05/21 07/05/21 History cephalexin 500 mg capsule 500 mg PO Q6HR 07/05/21 07/05/21 History Allergies Allergy/AdvReac Type Severity Reaction Status Date / Time pramipexole [From MIRAPEX] Allergy Severe NAUSEA/ Verified 03/25/21 15:14 PASSED OUT Review of Systems Review of Systems Narrative: Patient has been on antibiotics for you suspected urinary tract infection better abdominal pain has not improved. She has not had any diarrhea. In fact she has been constipated. She has not had any bright red blood per rectum or black tarry stools. She has had nausea and distension and increased flatulence but she has not had vomiting. She denies chest pain or lightheadedness or dizziness. She denies fevers or rashes. She denies headaches. Exam Vital Signs (past 8 hours): - 07/06/21 12:00 07/06/21 17:01 Temperature 97.4 F L Pulse Rate 65 Respiratory Rate 14 Blood Pressure 121/55 L Pulse Oximetry 98 98 Oxygen Delivery Method Room Air Oxygen Flow Rate 0 Narrative Exam Narrative: Patient is alert and oriented no apparent distress. She appears in discomfort with fatigue and overall feeling poorly and frail. She is in no acute distress. She is not writhing in pain. HEENT: Remarkable for dry mucous membranes Neck: Supple without adenopathy or jugular venous distention or bruits Chest: Clear to auscultation without wheezes rhonchi or crackles Cor: Regular rate and rhythm with a 2 to 3/6 prosthetic click heard loudest at the right upper sternal border Abdomen: Positive bowel sounds though hypoactive and tympanitic. Abdomen is markedly distended and diffusely tender throughout but most significantly it in the bilateral lower quadrants. There is no guarding or rebound tenderness. There is no hepatosplenomegaly Extremities: No edema, pulses intact Neurologic exam is nonfocal Skin shows no rashes Objective Labs Result Diagrams: 07/06/21 06:35 07/06/21 06:35 Labs: Laboratory Results - last 24 hr 07/05/21 07/05/21 07/05/21 20:00 20:01 20:01 WBC 12.7 H RBC 4.11 Hgb 13.2 Hct 39.7 MCV 96.6 MCH 32.2 MCHC 33.3 RDW 17.3 H Plt Count 312 Neut % (Auto) 67.4 Lymph % (Auto) 19.1 L [place] % (Auto) 11.3 Eos % (Auto) 0.7 L Baso % (Auto) 1.5 Neut # (Auto) 8600 H Lymph # (Auto) 2400 [place] # (Auto) 1400 H Eos # (Auto) 100 Baso # (Auto) 200 H PT 38.3 H INR 3.3 H APTT 47 H Sodium Potassium Chloride Carbon Dioxide BUN Creatinine Estimated GFR BUN/Creatinine Ratio Glucose Lactate 1.1 Calcium Total Bilirubin AST ALT Alkaline Phosphatase Total Protein Albumin Globulin Albumin/Globulin Ratio Lipase SARS-CoV-2 (PCR) 07/05/21 07/05/21 07/06/21 20:01 20:01 06:35 WBC 8.6 RBC 3.56 L Hgb 11.5 L Hct 34.5 L MCV 96.9 MCH 32.3 MCHC 33.3 RDW 17.7 H Plt Count 279 Neut % (Auto) 61.7 Lymph % (Auto) 21.7 L [place] % (Auto) 13.7 Eos % (Auto) 1.5 L Baso % (Auto) 1.4 Neut # (Auto) 5300 Lymph # (Auto) 1900 [place] # (Auto) 1200 H Eos # (Auto) 100 Baso # (Auto) 100 PT INR APTT Sodium 136 L Potassium 4.1 Chloride 101 Carbon Dioxide 31 BUN 13 Creatinine 0.63 Estimated GFR > 60.0 BUN/Creatinine Ratio 20.6 Glucose 101 Lactate Calcium 9.8 Total Bilirubin 0.9 AST 37 H ALT 26 Alkaline Phosphatase 83 Total Protein 8.2 Albumin 4.4 Globulin 3.8 Albumin/Globulin Ratio 1.2 Lipase 96 SARS-CoV-2 (PCR) Negative 07/06/21 07/06/21 07/06/21 06:35 06:35 13:44 WBC RBC Hgb Hct MCV MCH MCHC RDW Plt Count Neut % (Auto) Lymph % (Auto) [place] % (Auto) Eos % (Auto) Baso % (Auto) Neut # (Auto) Lymph # (Auto) [place] # (Auto) Eos # (Auto) Baso # (Auto) PT 35.4 H 32.4 H INR 3.0 H 2.8 H APTT Sodium 138 Potassium 3.9 Chloride 107 Carbon Dioxide 29 BUN 13 Creatinine 0.60 Estimated GFR > 60.0 BUN/Creatinine Ratio 21.7 Glucose 81 Lactate Calcium 8.7 Total Bilirubin AST ALT Alkaline Phosphatase Total Protein Albumin Globulin Albumin/Globulin Ratio Lipase SARS-CoV-2 (PCR) Assessment & Plan Assessment & Plan narrative: 86-year-old female admitted for abdominal pain with concern for partial bowel obstruction but most likely with ileus and constipation. Assessment 1. Abdominal pain with constipation Plan: Appreciate General surgery input. Suspicion is for constipation. Patient has had 12 hours of bowel rest being NPO. Will go ahead and start clear liquids and work on decreasing stool load. Will continue to monitor. Will continue with IV fluids. Reviewed imaging with patient. Assessment 2. Chronic anticoagulation due to valve replacement without acute issues other than supratherapeutic on Coumadin Plan: Will hold Coumadin and do daily INRs. We will recheck in a.m. and likely start Coumadin tomorrow Assessment 3. GI prophylaxis Plan: Will give IV Protonix Assessment 4. Hypertension Plan: Will continue with metoprolol Assessment 5. Hyperlipidemia Plan: Will continue atorvastatin Assessment 6. Hypomagnesemia Plan: Will monitor magnesium. Will continue outpatient treatment. Assessment 7. Leukocytosis of an unclear etiology improved Plan: Will continue to monitor Assessment 8. Previous history of UTI Plan: Will check for C diff though it doubt this is likely. We will stop the antibiotics. We will re-culture including blood cultures and urine cultures Patient's code status is DNR. 70 minute spent with patient today meeting with her and discussing with ER doctor and surgeon and nursing staff Time Spent With Patient Critical Care time: I spent a total of [] minutes of critical care time on this patient's care today; this time is exclusive of procedural time.
[2021-07-06 19:00] VITALS: O2SAT 97
[2021-07-06 20:45] VITALS: BP 159/60; PULSE 79; RESP 18; TEMP 37.4; O2SAT 97
[2021-07-06] MEDS: MORPHINE 2 MG/ML INJ IV (20:58)
[2021-07-06] MEDS: ATORVASTATIN 20 MG TABLET 10 MG PO (20:58)
[2021-07-07] VITALS (7 sets, daily range): BP systolic 126–162; BP diastolic 55–80; PULSE 66–83; RESP 16–18; TEMP 36.7–37.4; O2SAT 96–98
[2021-07-07] MEDS: SODIUM CHLORIDE 0.9% 1,000 ML 125 ML IV (01:55)
[2021-07-07 07:43] LABS: Add Manual Diff / Slide Review NO; Basophils Absolute Auto 200 /uL (0-100); Basophils Percent Auto 2.4 % (0-2); Eosinophils Absolute Auto 200 /uL (0-450); Eosinophils Percent Auto 2.4 % (2-4); Hematocrit 34.4 % (36-46); Hemoglobin 11.6 g/dL (12.0-16.0); Lymphocytes Absolute Auto 1400 /uL (1100-4500); Lymphocytes Percent Auto 17.3 % (25-40); Mean Corpuscular HGB Conc 33.8 % (30-36); Mean Corpuscular Hemoglobin 32.7 PG (26-34); Mean Corpuscular Volume 96.5 fL (80-100); Monocytes Absolute Auto 900 /uL (0-900); Monocytes Percent Auto 11.4 % (3-14); Neutrophils Absolute Auto 5600 /uL (1500-7000); Neutrophils Percent Auto 66.5 % (50-75); Platelet Count 282 X10^3/uL (150-400); Red Blood Cell Count 3.56 X10^6/uL (4.0-5.2); Red Cell Distribution Width 17.6 % (11.6-14.8); White Blood Cell Count 8.3 X10^3/uL (4.5-11.0)
[2021-07-07 07:56] LABS: BUN Creatinine Ratio 14.3 (6-22); Blood Urea Nitrogen 8 mg/dL (7-17); Calcium 8.7 mg/dL (8.4-10.2); Carbon Dioxide 30 mmol/L (22-32); Chloride 106 mmol/L (98-107); Estimated Glomerular Filt Rate > 60.0 mL/min (>60); Glucose 84 mg/dL (80-110); HEMOLYSIS < 15 (0-50); Potassium 3.5 mmol/L (3.4-5.1); Sodium 138 mmol/L (137-145)
--- NOTE | 2021-07-07 08:49 | DI.RAD.S_ITS ---
PROCEDURE: XR ACUTE ABDOMEN SERIES INDICATIONS: abdominal pain TECHNIQUE: One view chest and two views of the abdomen were acquired. COMPARISON: [facility], CT, CT ABDOMEN PELVIS W CON, 07/05/2021, 20:54. [facility], CR, XR ACUTE ABDOMEN SERIES, 07/05/2021, 16:27. FINDINGS: Surgical changes and devices: Lumbar spine fixation hardware, median sternotomy wires, aortic valve prosthesis and left chest wall cardiac pacer is stable. Chest: Lungs are clear. Heart size is normal. Trace bilateral pleural effusions.. No pneumoperitoneum. Abdomen: Gaseous distention of multiple loops of colon and small bowel colon and scattered air-fluid levels. Several of the air-fluid levels have differential height. No suspicious calcifications. Visualized solid organ contours appear normal. Bones: No suspicious bony lesions. IMPRESSION: 1. Nonspecific gaseous distention of multiple loops of large and small bowel which could be due to bowel obstruction or ileus. 2. Trace bilateral pleural effusions. Dictated by: Rose Mary Jhaveri MD, PhD on 07/07/2021 at 9:33 Approved by: Rose Mary Jhaveri MD, PhD on 07/07/2021 at 9:37
--- NOTE | 2021-07-07 08:51 | PM.PN.1 ---
Subjective Subjective Date Patient Seen: 07/07/21 Time Patient Seen: 08:51 Interval history: Patient had an uneventful night. Patient had several liquid stools. Patient is passing flatus now but still is getting marked distention after eating. She has just eaten clear liquids but is significantly distended. She is having some pain associated with that but overall is improved. She is not having nausea or vomiting and is feeling in a bit stronger. Twelve point review of systems is otherwise negative No chest pain No shortness of breaths No cough No fever No blood in her stool No vomiting Exam Vital Signs (past 8 hours): - 07/07/21 04:00 Temperature 98.0 F Pulse Rate 66 Respiratory Rate 16 Blood Pressure 134/55 L Pulse Oximetry 98 Oxygen Delivery Method Room Air Oxygen Flow Rate 0 Narrative Exam Narrative: Afebrile, vital signs are stable HEENT: Mucous membranes moist Neck: Supple without adenopathy Chest: Clear to auscultation without wheezes rhonchi or crackles Cor: Prosthetic click unchanged, regular rate and rhythm Abdomen: Increased bowel sounds. Less tympanitic. Markedly distended. No masses. Decrease tenderness bilateral lower quadrant. No guarding. Extremities: No edema, pulses intact Objective Labs Result Diagrams: 07/07/21 06:56 07/07/21 06:56 Labs: Laboratory Results - last 24 hr 07/06/21 07/07/21 07/07/21 13:44 06:56 06:56 WBC 8.3 RBC 3.56 L Hgb 11.6 L Hct 34.4 L MCV 96.5 MCH 32.7 MCHC 33.8 RDW 17.6 H Plt Count 282 Neut % (Auto) 66.5 Lymph % (Auto) 17.3 L [place] % (Auto) 11.4 Eos % (Auto) 2.4 Baso % (Auto) 2.4 H Neut # (Auto) 5600 Lymph # (Auto) 1400 [place] # (Auto) 900 Eos # (Auto) 200 Baso # (Auto) 200 H PT 32.4 H INR 2.8 H Sodium 138 Potassium 3.5 Chloride 106 Carbon Dioxide 30 BUN 8 Creatinine 0.56 Estimated GFR > 60.0 BUN/Creatinine Ratio 14.3 Glucose 84 Calcium 8.7 Magnesium 07/07/21 06:56 WBC RBC Hgb Hct MCV MCH MCHC RDW Plt Count Neut % (Auto) Lymph % (Auto) [place] % (Auto) Eos % (Auto) Baso % (Auto) Neut # (Auto) Lymph # (Auto) [place] # (Auto) Eos # (Auto) Baso # (Auto) PT INR Sodium Potassium Chloride Carbon Dioxide BUN Creatinine Estimated GFR BUN/Creatinine Ratio Glucose Calcium Magnesium 2.0 PFSH Medical History Age related osteoporosis Anemia Arthritis Degenerative lumbar spinal stenosis Headache Pessary maintenance Vaginal prolapse Surgical History History of carpal tunnel repair History of sinus surgery History of spinal fusion History of tonsillectomy Status post epidural steroid injection (12/12/17) Family History Mother Heart disease Diabetes mellitus Breast cancer Father Osteoporosis Stroke Brother Heart disease Brother Diabetes mellitus Social History household members: spouse Smoking Status: Never smoker alcohol intake: never Assessment & Plan Assessment & Plan narrative: 86-year-old female admitted with abdominal pain thought to be due to severe constipation with ileus with some improvement Plan: Will go ahead and do it three-view of the abdomen Will continue with working on clearing at stool. Pending results of three view of the abdomen will advanced diet Assessment 2. Deconditioning due to prolonged illness Plan: Work with PT Assessment 3. Valve replacement on chronic anticoagulation, supratherapeutic on admit Plan: Will restart Coumadin tonight Assessment number for GI prophylaxis Plan: continue with same PPI Assessment 5. DVT prophylaxis Plan: Continue coumadin Assessment 6. Hypertension well controlled Plan: Will go ahead and continue metoprolol Assessment 7. Leukocytosis Plan: Improved Assessment 8. Previous UTI with urine and blood cultures negative thus far stable off antibiotics Plan: Will continue to monitor 40 minutes spent with patient Time Spent With Patient Critical Care time: I spent a total of [] minutes of critical care time on this patient's care today; this time is exclusive of procedural time.
[2021-07-07] MEDS: MAGNESIUM OXIDE 400 MG TABLET PO (08:55)
[2021-07-07] MEDS: BISACODYL 10 MG SUPP PR (08:55)
[2021-07-07] MEDS: PANTOPRAZOLE 40 MG VIAL 20 MG IV (08:55)
[2021-07-07] MEDS: METOPROLOL ER 25 MG TABLET PO (08:57)
[2021-07-07 09:50] LABS: INR 2.6 (0.9-1.3); Prothrombin Time 30.5 SECONDS (10.1-12.7)
--- NOTE | 2021-07-07 10:51 | DI.RAD.S_ITS ---
PROCEDURE: FL SMALL BOWEL FOLLOW THROUGH INDICATIONS: small bowel obstruction. Perform with gastrografin COMPARISON: [facility], CT, CT ABDOMEN PELVIS W CON, 07/05/2021, 20:54. [facility], CR, XR ACUTE ABDOMEN SERIES, 07/07/2021, 8:59. FINDINGS: KUB: Preprocedural strike on machine operator film demonstrates gaseous distention of multiple loops of small bowel and large bowel. There are scattered air-fluid levels.. No suspicious abdominal calcifications. Visualized solid organ contours appear normal. No suspicious bony abnormalities. Small bowel: There is normal transit time of barium through the small bowel. Small bowel loops are of normal caliber throughout. Mucosal folds are smooth and of normal thickness. No strictures, intraluminal masses, or extrinsic mass effects are noted. Contrast material noted in the colon extending to at least the level of the left colon and sigmoid colon junction. IMPRESSION: No evidence of small-bowel obstruction. Distended colon noted with contrast material identified at the level of the left colon/sigmoid colon junction. Finding could be due to colonic ileus or colonic obstruction related to large amount of stool in the rectum and sigmoid colon. Dictated by: Rose Mary Jhaveri MD, PhD on 07/07/2021 at 14:11 Approved by: Rose Mary Jhaveri MD, PhD on 07/07/2021 at 14:14
--- NOTE | 2021-07-07 11:12 | PT.IPTN ---
Current Diagnoses Constipation, unspecified (07/05/21) Physical Therapy Treatment Note M2 PT-IP Current Condition Start: 07/06/21 13:57 Freq: NEEDED Status: Active Protocol: Document 07/07/21 10:37 SP (Rec: 07/07/21 13:09 SP [email or web address]) Physical Therapy Current Condition Current Condition Evaluation Date 07/06/21 Treatment Diagnosis abdominal pain; constipation; impaired mobility and gait Onset Date 06/29/21 M3 PT-IP Subjective Start: 07/06/21 13:57 Freq: NEEDED Status: Active Protocol: Document 07/07/21 10:37 SP (Rec: 07/07/21 13:09 SP [email or web address]) Subjective Physical Therapy Visit Type Type Treatment Note Visit Start Time 10:37 Visit Stop Time 11:12 Total Visit Minutes 35 Notes Vitals taken during tx: supine: BP 110/40 HR 63 post SPT to chair: 136/56 HR 71 SaO2 95% on RA Pain during mobility: 3/10 over abdomen Pt reports little dizzy during mobility but willing to participate and didn't worsen or affect mobiltiy. Number of HEELER MACHINE Visits 1 Physical Therapy Visit Comments Patient Comments Pt willing to work with therapy. Patient Goals Return home with spouse support. Therapy Pain Assessment Pain When Pain Assessed During Mobility Pain Present Pain Present Pain Reported Location Abdomen Intensity 3 Scale Used Numeric (0 - 10) Description With Movement Pain Behaviors Facial Grimacing Pain Management Techniques Distraction,Modification of Treatment,Re-positioning, Timing of Activity with Medications M4 PT-IP Mobility and Gait Start: 07/06/21 13:57 Freq: NEEDED Status: Active Protocol: Document 07/07/21 10:37 SP (Rec: 07/07/21 13:09 SP [email or web address]) PT-Bed Mobility Assessment Rolling Type of Rolling Log Rolling,Roll to Left Level of Assist Standby Assistance Supine to Sit Supine to Sit Contact Guard Assistance, Minimal Assistance,1 Person Assistance,Bedrails Scooting Scooting to Edge of Bed Standby Assistance PT-Transfer Assessment Sit to and From Stand Sit to and from Stand Standby Assistance,Use of Upper Extremities Equipment Transfer Assistive Device Gait Belt,Front Wheeled Walker Orthotic/Prosthetic Devices or Brace: No Transfers Transfer Destination Chair,Wheelchair Transfer Technique pt amb with FWW Transfer Ability Level of Assist Standby Assistance,Contact Guard Assistance,Use of Upper Extremities Comments Mobility Comments Pt was elevated supine when arrived. HOB lowered flat for assimulate home surface. LR L with contact bed rail as side end table on L at home, L SL> sit CG- 5%A for trunk righting , pt reported at times helps her sit up if needed. Scoot to EOB SBA. Sit>stand CGA good push from bed to fWW, SPT bed>chair w/ fWW fully and reach back stand>sit in chair CGA. Sit>stand pushing from chair arms SBA further distance gait into hallway approx 70 ft using FWW, wc follow due to decreased activity tolerance, required seated rested into wc CGA, wheeled to stairs. Pt completed stair mgt R SPC and side pressure to L HR to assimulate wall has at home on L, ascend/descend 3 stairs 5% A for trunk support through GB and contact [place] on RUE on SPC for stability, no LOB. Pt was able to ambulate back to room approx 70 ft with 2 brief stop stand rests due to tiring and decreased strength using FWW sBA wc follow but not needed. Pt returned to chair SBA when entered room SBA. Pt had call light and all needs in reach with tray front and warm blankets over shlds and lap. Diagnostic staff in room when left. Gait Assessment Gait Gait Assistance Required: Standby Assistance,Contact Guard Assist,1 Person Assist Distance (Feet) 140 Assistive Devices Assistive Device Gait Belt,Front Wheeled Walker Orthotic/Prosthetic Devices or Brace: No Gait Deviations General Gait Pattern Antalgic,Flexed Trunk Factors Limiting Gait Function Factors Limiting Gait Function Decreased Activity Tolerance, Decreased Strength,Pain Comments Gait Comments Pt ambulated slowly with FWW, stop stand rests further distance in hallway CG- SBA. Stair Climbing Assessment Evaluation Level of Assist On Stairs Contact Guard Assistance, Minimal Assistance,1 Person Assistance Devices Stair Climbing Assistive Devices Straight Cane Technique/Endurance Stair Climbing Direction Ascend and Descend Stair Climbing Technique Step to Step Number of Steps Climbed 3 Stair Climbing Set # Repetitions (reps) 1 Comments Stair Climbing Comments step to patterning SPC in R and lateral pressure to rail on L for assimulate wall on L at home. 5%A for trunk support ascend/descend step and contact [place] of SPC on R for stabilizing. Pt feels can help with the little bit needs to manage stairs to enter home. PT-Balance Assessment Sitting Balance and Reactions Static Sitting Balance Ability Good Dynamic Sitting Balance Ability Good Standing Balance and Reactions Static Standing Balance Ability Good Dynamic Standing Balance Ability Fair Device Used FWW M5 PT-IP Objective Assessments Start: 07/06/21 13:57 Freq: NEEDED Status: Active Protocol: Document 07/06/21 16:15 AW (Rec: 07/06/21 17:03 AW [id number]) Orientation Orientation/Cognition Level of Alertness Alert Orientation Name,Day of Week,Place, Situation Language Function Ability No Deficits Noted Safety Awareness Understands Safety Issues Memory Description No Deficits Noted Gross Range of Motion Lower Extremity ROM Assessment Within Functional Limits Strength Lower Extremity Strength Assessment Bilaterally Impaired Hip 4-/5 Knee 4+/5 ext; 4/5 flex Ankle 4/5 DF Sensation Assessment Sensation Gross Sensation WNL M6 PT-IP Treatment Start: 07/06/21 13:57 Freq: NEEDED Status: Active Protocol: Document 07/07/21 10:37 SP (Rec: 07/07/21 13:09 SP [email or web address]) Physical Therapy Treatment Exercises Knee ROM Measurement GINA.PT.EX2 Other Treatments Other Treatment Performed Educated pt on importance of continued mobility for bowel function. Also recommended use of FWW at this time with which pt agrees. M7 PT-IP Assessment and Plan Start: 07/06/21 13:57 Freq: NEEDED Status: Active Protocol: Document 07/07/21 10:37 SP (Rec: 07/07/21 13:09 SP [email or web address]) PT Summary Assessment and Plan Potential Rehabilitation Potential Good Status of Condition at Evaluation Evolving Summary Impairments Pain,Strength,Balance,Bed Mobility,Transfers,Gait, Activity Tolerance Progress Towards Goals Progressing Toward Goals,Slow Progress due to Pain,Slow Progress due to Activity Tolerance Assessment Summary Pt requries cg- min for trunk righting bed mobility sup>sit, transfers and gait CGA- SBA, stair mgt Min A. Pt is ok to return home with to assist her when medically cleared. Goals Bed Mobility Goal Independent Transfer Goal Independent,Front Wheeled Walker Gait Goal Independent,Front Wheel Walker Gait Distance 250 Other Goals - up/down 2 steps without rail CGA - progress transfers and gait to IND without AD Days to Meet Goals 4 Frequency of Treatment Frequency Of Treatment Once a Day Treatment Plan Physical Therapy Treatment Plan Bed Mobility Training,Transfer Training,Gait Training, Therapeutic Exercise,Balance Retraining,Discharge Planning Other Recommendations and Next Treatment gait training with FWW, stairs Focus w/ CGT if pt and feel needed. Recommendations To Nursing Amount of Assist Needed Standby Assistance,1 Person Assist Discharge Recommendations PT Discharge Recommendations Home with Assistance,Home Health Transportation Needs at Discharge Private Vehicle
[2021-07-07] MEDS: POTASSIUM CHLORIDE IN WATER 10 MEQ/100 ML PIGGYBACK 100 MEQ IV ×2 (12:41→14:31)
--- NOTE | 2021-07-07 15:38 | CM.DPC ---
DCP Cont: Patient worked with P.T., today, and did well with therapy. Plan is confirmed for home with spouse. Patient does not yet have discharge orders for home as of yet. Provider did see her today. P: DCP to continue to follow. Plan is home when medically stable. Shelbi Urbina RN/Stencil Printer
--- NOTE | 2021-07-07 17:08 | PM.CALLCOV.1 ---
Call Coverage Note Note Date of Patient Contact: 07/07/21 Time of Patient Contact: 17:08 Narrative of Care Provided: Consulted for an 86 y.o woman admitted to the hospital with constipation vs SBO. -Reviewed small bowel follow through study from today no evidence of stricture or obstruction. -Having numerous liquid bowel movements and tolerating some clear liquids -Abdomen soft mild-moderately distended. -Soap water enema for treatment of distal colonic fecal impaction
[2021-07-07] MEDS: WARFARIN 2 MG TABLET 4 MG PO (17:47)
[2021-07-07] MEDS: ACETAMINOPHEN 325 MG TABLET 650 MG PO (17:49)
[2021-07-07] MEDS: ATORVASTATIN 20 MG TABLET 10 MG PO (20:48)
[2021-07-08] VITALS (7 sets, daily range): BP systolic 114–137; BP diastolic 52–59; PULSE 71–76; RESP 16–18; TEMP 36.6–37.4; O2SAT 96–97
[2021-07-08 07:05] LABS: Add Manual Diff / Slide Review NO; Basophils Absolute Auto 0 /uL (0-100); Basophils Percent Auto 0.4 % (0-2); Eosinophils Absolute Auto 200 /uL (0-450); Eosinophils Percent Auto 2.3 % (2-4); Hematocrit 36.5 % (36-46); Lymphocytes Absolute Auto 2000 /uL (1100-4500); Lymphocytes Percent Auto 22.3 % (25-40); Mean Corpuscular HGB Conc 32.9 % (30-36); Monocytes Absolute Auto 900 /uL (0-900); Monocytes Percent Auto 9.9 % (3-14); Neutrophils Absolute Auto 5800 /uL (1500-7000); Neutrophils Percent Auto 65.1 % (50-75); Platelet Count 303 X10^3/uL (150-400); Red Blood Cell Count 3.76 X10^6/uL (4.0-5.2); Red Cell Distribution Width 17.1 % (11.6-14.8)
[2021-07-08 07:27] LABS: BUN Creatinine Ratio 8.6 (6-22); Blood Urea Nitrogen 5 mg/dL (7-17); Carbon Dioxide 32 mmol/L (22-32); Chloride 105 mmol/L (98-107); Estimated Glomerular Filt Rate > 60.0 mL/min (>60); Glucose 90 mg/dL (80-110); HEMOLYSIS < 15 (0-50); Potassium 3.6 mmol/L (3.4-5.1); Sodium 140 mmol/L (137-145)
--- NOTE | 2021-07-08 09:09 | PM.CALLCOV.1 ---
Call Coverage Note Note Date of Patient Contact: 07/08/21 Time of Patient Contact: 09:10 Narrative of Care Provided: 86-year-old woman admitted hospital for constipation. -no evidence of bowel obstruction. -large volume of stool output yesterday -tolerating clear liquid diet -Surgical sign off call with questions
[2021-07-08] MEDS: MAGNESIUM OXIDE 400 MG TABLET PO (09:50)
[2021-07-08] MEDS: BISACODYL 10 MG SUPP PR (09:50)
[2021-07-08] MEDS: METOPROLOL ER 25 MG TABLET PO (09:50)
[2021-07-08] MEDS: PANTOPRAZOLE 40 MG VIAL 20 MG IV (09:50)
[2021-07-08] MEDS: ACETAMINOPHEN 325 MG TABLET 650 MG PO (09:54)
--- NOTE | 2021-07-08 11:32 | PT.IPTN ---
Current Diagnoses Constipation, unspecified (07/05/21) Physical Therapy Treatment Note M2 PT-IP Current Condition Start: 07/06/21 13:57 Freq: NEEDED Status: Active Protocol: Document 07/07/21 10:37 SP (Rec: 07/07/21 13:09 SP [id number]) Physical Therapy Current Condition Current Condition Evaluation Date 07/06/21 Treatment Diagnosis abdominal pain; constipation; impaired mobility and gait Onset Date 06/29/21 M3 PT-IP Subjective Start: 07/06/21 13:57 Freq: NEEDED Status: Active Protocol: Document 07/08/21 11:15 KS (Rec: 07/08/21 12:20 KS [id number]) Subjective Physical Therapy Visit Type Type Treatment Note Visit Start Time 11:15 Visit Stop Time 11:32 Total Visit Minutes 17 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 Patient Goals Return home with spouse support. M4 PT-IP Mobility and Gait Start: 07/06/21 13:57 Freq: NEEDED Status: Active Protocol: Document 07/08/21 11:15 KS (Rec: 07/08/21 12:20 KS [id number]) PT-Bed Mobility Assessment Rolling Type of Rolling Log Rolling,Roll to Left Level of Assist Standby Assistance Scooting Scooting to Edge of Bed Standby Assistance PT-Transfer Assessment Sit to and From Stand Sit to and from Stand Standby Assistance,Use of Upper Extremities Equipment Transfer Assistive Device Gait Belt,Front Wheeled Walker Orthotic/Prosthetic Devices or Brace: No Transfers Transfer Destination Chair Transfer Technique pt amb with FWW Transfer Ability Level of Assist Standby Assistance,Contact Guard Assistance,Use of Upper Extremities Comments Mobility Comments Pt in bed upon arrival from therapy but agreeable to transfer to chair for lunch. SBA for bed mobility w/ HOB raised and sit<>stand w/ FWW. Pt then ambulated ~50 ft around room w/ FWW and SBA. Pt ambulated slowly w/ decreased stride and foot clearance but demonstrated good use of FWW. She walked to chair and sat down SBA and cues for hand placement and sequencing. Pt left in chair w/ all needs in reach. Gait Assessment Gait Gait Assistance Required: Standby Assistance,Contact Guard Assist,1 Person Assist Distance (Feet) 50 Assistive Devices Assistive Device Gait Belt,Front Wheeled Walker Orthotic/Prosthetic Devices or Brace: No Gait Deviations General Gait Pattern Antalgic,Flexed Trunk Factors Limiting Gait Function Factors Limiting Gait Function Decreased Activity Tolerance, Decreased Strength,Pain Comments Gait Comments Please refer to mobility section for details. PT-Balance Assessment Sitting Balance and Reactions Static Sitting Balance Ability Good Dynamic Sitting Balance Ability Good Standing Balance and Reactions Static Standing Balance Ability Good Dynamic Standing Balance Ability Fair Device Used FWW M5 PT-IP Objective Assessments Start: 07/06/21 13:57 Freq: NEEDED Status: Active Protocol: Document 07/06/21 16:15 AW (Rec: 07/06/21 17:03 AW [id number]) Orientation Orientation/Cognition Level of Alertness Alert Orientation Name,Day of Week,Place, Situation Language Function Ability No Deficits Noted Safety Awareness Understands Safety Issues Memory Description No Deficits Noted Gross Range of Motion Lower Extremity ROM Assessment Within Functional Limits Strength Lower Extremity Strength Assessment Bilaterally Impaired Hip 4-/5 Knee 4+/5 ext; 4/5 flex Ankle 4/5 DF Sensation Assessment Sensation Gross Sensation WNL M6 PT-IP Treatment Start: 07/06/21 13:57 Freq: NEEDED Status: Active Protocol: Document 07/08/21 11:15 KS (Rec: 07/08/21 12:20 KS [id number]) Physical Therapy Treatment Education Education Provided Safety Other Treatments Other Treatment Performed Educated pt on importance of continued mobility for bowel function. Also recommended use of FWW at this time with which pt agrees. M7 PT-IP Assessment and Plan Start: 07/06/21 13:57 Freq: NEEDED Status: Active Protocol: Document 07/08/21 11:15 KS (Rec: 07/08/21 12:20 KS [id number]) PT Summary Assessment and Plan Potential Rehabilitation Potential Good Status of Condition at Evaluation Evolving Summary Impairments Pain,Strength,Balance,Bed Mobility,Transfers,Gait, Activity Tolerance Progress Towards Goals Progressing Toward Goals,Slow Progress due to Pain,Slow Progress due to Activity Tolerance Assessment Summary Pt SBA to CGA for mobility today. She remains limited by weakness and some pain, but demonstrated good use of FWW and had no LOB. She would benefit from outpatient rehab to improve activity tolerance, but otherwise should be safe to return home w/ to assist as needed. Goals Bed Mobility Goal Independent Transfer Goal Independent,Front Wheeled Walker Gait Goal Independent,Front Wheel Walker Gait Distance 250 Other Goals - up/down 2 steps without rail CGA - progress transfers and gait to IND without AD Days to Meet Goals 4 Frequency of Treatment Frequency Of Treatment Once a Day Treatment Plan Physical Therapy Treatment Plan Bed Mobility Training,Transfer Training,Gait Training, Therapeutic Exercise,Balance Retraining,Discharge Planning Other Recommendations and Next Treatment gait training with FWW, stairs Focus w/ CGT if pt and feel needed. Recommendations To Nursing Amount of Assist Needed Standby Assistance,1 Person Assist Discharge Recommendations PT Discharge Recommendations Home with Assistance,Home Health,Outpatient PT Transportation Needs at Discharge Private Vehicle
--- NOTE | 2021-07-08 15:04 | PM.DS.1 ---
History of Present Illness History of Present Illness Date Patient Seen: 07/08/21 Time Patient Seen: 09:00 Date of Onset of Symptoms: 06/30/21 Chief complaint: i feel better Narrative: chief complaint: I feel better Pt feeling much better today, surgery consult notes appreciated they have signed off in light of prodigious stool output. Resumning normal diet and ambulating with RW. OK to dc home to f/u with PCP. Discharge Providers Provider Date of admission: 07/05/21 22:31 Discharge Date: 07/08/21 Primary care physician: Fidelia Ziegler MD Consults: 07/05/21 22:17 Consult to General Surgery Stat Comment: Consulting Provider: Perico Bernard Reason for consultation: Abdominal pain/constipation Has provider been notified: Yes 07/06/21 08:54 Consult to Physical Therapy Evaluate & Treat Comment: Physician Instructions: Evaluate and Treat Discharge provider: Luis Goodson MD Summary Hospital Course Discharge Diagnosis: ileus Hospital Course: Pt admitted with apparent SBO resolved with conservative management resumed liquid bowel movements with laxatives and softeners feeling much better with advancing diet back to normal by DoD. Status at Discharge Cognitive/behavioral status at discharge: oriented and at baseline, oriented Functional status at discharge: uses cane/walker Overall status at discharge: patient is progressing back to baseline Exam Vital Signs (past 8 hours): - 07/08/21 07:49 07/08/21 07:54 07/08/21 08:00 Temperature 99.3 F Pulse Rate 76 72 Respiratory Rate 18 16 Blood Pressure 135/59 L Pulse Oximetry 97 96 97 07/08/21 09:50 07/08/21 13:00 07/08/21 14:31 Temperature 99.3 F Pulse Rate 72 71 71 Respiratory Rate 18 Blood Pressure 135/59 L 137/58 L 137/58 L Pulse Oximetry 97 Oxygen Delivery Method Room Air Oxygen Flow Rate 0 Narrative Exam Narrative: laying in bed picking at jello [facility] General: cooperative, comfortable and well developed [facility] Head: normocephalic and atraumatic Eyes General: appearance normal, both eyes and all related structures Resp Auscultation: clear to auscultation bilaterally Cardio Other: RRR S1/S2 GI Other: active bowel sounds, soft nontender to palpation, some mild distension still evident Neuro General: patient alert, patient awake, patient oriented x3 and CN's II-XI intact bilaterally Extrem General: full ROM Psych Appearance: grossly normal and well kempt Mental Status: mental status grossly normal Speech and Movement: speech and movement normal Mood: congruent mood Affect: normal affect Attitude: cooperative Objective Labs Result Diagrams: 07/08/21 06:47 07/08/21 06:47 Labs: Laboratory Results - last 24 hr 07/08/21 07/08/21 06:47 06:47 WBC 9.0 RBC 3.76 L Hgb 12.0 Hct 36.5 MCV 97.0 MCH 32.0 MCHC 32.9 RDW 17.1 H Plt Count 303 Neut % (Auto) 65.1 Lymph % (Auto) 22.3 L Smyth % (Auto) 9.9 Eos % (Auto) 2.3 Baso % (Auto) 0.4 Neut # (Auto) 5800 Lymph # (Auto) 2000 Smyth # (Auto) 900 Eos # (Auto) 200 Baso # (Auto) 0 Sodium 140 Potassium 3.6 Chloride 105 Carbon Dioxide 32 BUN 5 L Creatinine 0.58 Estimated GFR > 60.0 BUN/Creatinine Ratio 8.6 Glucose 90 Calcium 9.0 [facility] Medical History Age related osteoporosis Anemia Arthritis Degenerative lumbar spinal stenosis Headache Pessary maintenance Vaginal prolapse Surgical History History of carpal tunnel repair History of sinus surgery History of spinal fusion History of tonsillectomy Status post epidural steroid injection (12/12/17) Family History Mother Heart disease Diabetes mellitus Breast cancer Father Osteoporosis Stroke Brother Heart disease Brother Diabetes mellitus Social History household members: spouse Smoking Status: Never smoker alcohol intake: never Discharge Assessment & Plan Assessment and Plan Plan of Treatment: 86-year-old female admitted with abdominal pain thought to be due to severe constipation with ileus with some improvement #ileus resolved/ing with good stool output and flatus. appreciate surgical consult Dr. Bernard has signed off. 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, supratherapeutic on admit back on home coumadin resume home checks #Hypertension stable continue home metoprolol #Leukocytosis Improved #Previous UTI with urine and blood cultures negative thus far stable off antibiotics Will continue to monitor Dispo: home, ADAT Discharge Plan Discharge Plan Patient Disposition: Home Discharge orders & Medications Prescriptions: New docusate sodium 100 mg tablet 100 mg PO BID Qty: 30 0RF Continued omeprazole 20 MG capsule,delayed release(DR/EC) 20 mg PO QDAY@0600 Qty: 0 0RF multivitamin [Multiple Vitamins] 1 EACH tablet 1 tab PO QDAY Qty: 0 0RF ascorbic acid (vitamin C) 500 MG tablet 500 mg PO QDAY Qty: 0 0RF cyanocobalamin (vitamin B-12) [Vitamin B-12] 500 MCG lozenge 500 mcg PO DAILY Qty: 0 0RF calcium citrate-vitamin D3 [Citracal Regular] 250 MG/200 IU tablet 2 ea PO DAILY Qty: 0 0RF magnesium oxide 400 MG capsule 400 mg PO DAILY Qty: 0 0RF aspirin [Adult Aspirin Regimen] 81 mg tablet,delayed release (DR/EC) 81 mg PO DAILY 0RF Estradiol pearls 10 mcg vaginal 2XW 0RF Rx Instructions: Insert vaginally 3 x per week warfarin 3 mg tablet 3 mg PO DAILY 0RF Label Comments: as directed Pulmicort Flexhaler 180 mcg/actuation aerosol powdr breath activated 1 inhalation INHALATION DAILY 0RF metoprolol succinate 25 mg tablet extended release 24 hr 25 mg PO DAILY 0RF atorvastatin 40 mg tablet 40 mg PO DAILY 0RF cephalexin 500 mg capsule 500 mg PO Q6HR 0RF tramadol 50 mg tablet 50 mg PO ONCE 0RF Follow up/Referrals: Fidelia Ziegler MD [Primary Care Provider] - Diet/Activity/Treatments Diet: Diet as Tolerated and Regular Discharge Data Primary Care Provider: Fidelia Ziegler Attending Provider: Fidelia Ziegler
--- NOTE | 2021-07-08 18:12 | PC.NURSE ---
Pt is A&Ox3 this a.m. She reports feeling less distended, and wanting to advance diet from clear liquids. VSS, afebrile. LS CTA, diminished in bases. She is a SBA to this a.m. having frequent liquid stool/mixed urine. She denies abdominal pain but reports her back aches from the bed and is medicated with prn tylenol with effect results. She tolerates advancement of diet today without nausea or increased distention. She is cleared by MD for discharge home with plan to follow up with MD Ziegler and she verbalizes that she will call for an appointment in the a.m. She acknowledges understanding of discharge instructions, medications, and worsening symtpoms. At 1715 she is escorted via w/ch to private vehicle with her with all of her belongings for discharge home
== END 2021-07-08 17:15 | disposition home or self-care (01) ==
LOC: ED 22:26 → AC 22:32
PROVIDERS: Emergency Medicine; Admitting Provider Family Medicine; Emergency Provider Emergency Medicine; Family Provider Family Medicine; PCP Family Medicine; Visit Provider Family Medicine
DX: K56.7 Ileus, unspecified (principal); Z79.01 Long term (current) use of anticoagulants; K59.00 Constipation, unspecified; Z95.2 Presence of prosthetic heart valve; Z95.0 Presence of cardiac pacemaker; E78.5 Hyperlipidemia, unspecified; Z87.440 Personal history of urinary (tract) infections; Z20.822 Contact with and (suspected) exposure to COVID-19
CPT/HCPCS: 36415; 74022; 74177; 74250; 80048; 80053; 81003; 83605; 83690; 83735; 85025; 85610; 85730; 87040; 87086; 87635; 93005; 94760; 96365; 96375; 96376; 97116; 97162; 97530; 99224; 99284; 99285; C9803; G0378; C9113; J2270; J2405; Q9967

== ENCOUNTER → 2021-07-12 15:24 | Outpatient (ROUT) | payer MEDICARE, OTHER, SELFPAY ==
[2021-07-05 23:23] VITALS: BMI 19.5
[2021-07-12 15:43] LABS: INR 1.7 (0.9-1.3); Prothrombin Time 19.5 SECONDS (10.1-12.7)
== END ==
PROVIDERS: Family Provider Family Medicine; PCP Family Medicine; Visit Provider Family Medicine
DX: Z95.2 Presence of prosthetic heart valve (principal); Z79.01 Long term (current) use of anticoagulants
CPT/HCPCS: 85610

== ENCOUNTER → 2021-08-10 14:45 | Outpatient (CLI) | payer MEDICARE, OTHER, SELFPAY ==
[2021-07-05 23:23] VITALS: BMI 19.5
== END ==
PROVIDERS: Family Provider Family Medicine; PCP Family Medicine; Referring Provider Family Medicine; Visit Provider Family Medicine
DX: M81.0 Age-related osteoporosis without current pathological fracture (principal); Z78.0 Asymptomatic menopausal state
CPT/HCPCS: 77080

== ENCOUNTER → 2021-08-13 08:42 | Outpatient (CLI) | payer MEDICARE, OTHER, SELFPAY ==
[2021-07-05 23:23] VITALS: BMI 19.5
--- NOTE | 2021-08-13 | DI.NM.S_ITS ---
PROCEDURE: NM BONE SCAN WHOLE BODY RADIOPHARMACEUTICAL: 20.6 mCi Tc-99m MDP IV. INDICATIONS: Dorsalgia, unspecified TECHNIQUE: Delayed whole-body scintigrams were obtained approximately 3-4 hours after intravenous injection of radiotracer. Anterior and posterior views were acquired from vertex to feet. Additional left and right oblique views of the lower thoracic and lumbar spine were obtained. COMPARISON: CR, L-SPINE 2-3 VIEWS, 05/03/2017, 17:07. [facility], CT, CT ABDOMEN PELVIS W CON, 07/05/2021, 20:54. FINDINGS: There is abnormal uptake in T12 vertebra and right side of T11 vertebra. The comparison CT dated 07/05/2021 showed moderate compression fracture of T12. Abnormal uptake in right side of T11 head no explanation on the comparison CT. Mild dextroscoliosis. Mildly increased activity in the lower lumbar spine is most likely degenerative in nature. Foci of mildly increased periarticular activity in multiple peripheral joints compatible with mild degenerative joint disease. IMPRESSION: 1. Abnormal activity in T12 correlates with moderate compression fracture seen on the comparison CT. Diagnostic possibilities are osteoporotic fracture versus pathological fracture. Recommend MRI with and without contrast for follow-up evaluation. 2. Increased activity in the right side of T11. The comparison CT showed no definitive explanation. This can be evaluated with MRI at the same time. Dictated by: Jenelle Figueroa M.D. on 08/13/2021 at 17:00 Approved by: Jenelle Figueroa M.D. on 08/13/2021 at 17:35
== END ==
PROVIDERS: Family Provider Family Medicine; PCP Family Medicine; Referring Provider Family Medicine; Visit Provider Family Medicine
DX: M48.54XA Collapsed vertebra, not elsewhere classified, thoracic region, initial encounter for fracture (principal); M54.9 Dorsalgia, unspecified
CPT/HCPCS: 78306; A9503

== ENCOUNTER → 2021-08-30 15:04 | Outpatient (ROUT) | payer MEDICARE, OTHER, SELFPAY ==
[2021-07-05 23:23] VITALS: BMI 19.5
[2021-08-30 15:28] LABS: Prothrombin Time 62.5 SECONDS (10.1-12.7)
[2021-08-30 16:09] LABS: INR 5.3 (0.9-1.3)
== END ==
PROVIDERS: Family Provider Family Medicine; PCP Family Medicine; Visit Provider Family Medicine
DX: Z95.2 Presence of prosthetic heart valve (principal); Z79.01 Long term (current) use of anticoagulants; Z95.0 Presence of cardiac pacemaker
CPT/HCPCS: 85610

== ENCOUNTER → 2021-09-27 15:49 | Outpatient (ROUT) | payer MEDICARE, OTHER, SELFPAY ==
[2021-07-05 23:23] VITALS: BMI 19.5
[2021-09-27 16:06] LABS: Prothrombin Time 35.4 SECONDS (10.1-12.7)
== END ==
PROVIDERS: Family Provider Family Medicine; PCP Family Medicine; Visit Provider Family Medicine
DX: Z79.01 Long term (current) use of anticoagulants (principal); Z95.2 Presence of prosthetic heart valve
CPT/HCPCS: 85610

== ENCOUNTER → 2021-09-27 16:02 | Outpatient (CLI) | payer MEDICARE, OTHER, SELFPAY ==
[2021-07-05 23:23] VITALS: BMI 19.5
--- NOTE | 2021-09-27 | DI.RAD.S_ITS ---
PROCEDURE: XR ACUTE ABDOMEN SERIES INDICATIONS: Abd Pain TECHNIQUE: One view chest and two views of the abdomen were acquired. COMPARISON: [facility], , XR ACUTE ABDOMEN SERIES, 07/07/2021, 8:59. FINDINGS: Surgical changes and devices: Left sided pacer. Median sternotomy. Chest: Lungs are clear. Heart size is normal. No pleural effusions. No pneumoperitoneum. Abdomen: Moderately distended loops of small bowel within the central abdomen which demonstrate air-fluid levels.. No suspicious calcifications. Visualized solid organ contours appear normal. Bones: No suspicious bony lesions. IMPRESSION: Findings suggestive of small-bowel obstruction. Dictated by: Mariza Reyes M.D. on 09/27/2021 at 16:33 Approved by: Mariza Reyes M.D. on 09/27/2021 at 16:34
== END ==
PROVIDERS: Family Provider Family Medicine; PCP Family Medicine; Referring Provider Family Medicine; Visit Provider Family Medicine
DX: R10.9 Unspecified abdominal pain (principal); Z79.01 Long term (current) use of anticoagulants; Z95.2 Presence of prosthetic heart valve
CPT/HCPCS: 74022; 85610

== ENCOUNTER → 2021-10-11 10:59 | Outpatient (ROUT) | payer MEDICARE, OTHER, SELFPAY ==
[2021-07-05 23:23] VITALS: BMI 19.5
[2021-10-11 11:14] LABS: Prothrombin Time 58.3 SECONDS (10.1-12.7)
== END ==
PROVIDERS: PCP Family Medicine; Visit Provider Family Medicine
DX: Z79.01 Long term (current) use of anticoagulants (principal)
CPT/HCPCS: 85610

== ENCOUNTER → 2021-10-26 12:27 | Outpatient (ROUT) | payer MEDICARE, OTHER, SELFPAY ==
[2021-07-05 23:23] VITALS: BMI 19.5
[2021-10-26 12:50] LABS: INR 2.3 (0.9-1.3); Prothrombin Time 26.6 SECONDS (10.1-12.7)
== END ==
PROVIDERS: PCP Family Medicine; Visit Provider Family Medicine
DX: Z79.01 Long term (current) use of anticoagulants (principal); Z95.2 Presence of prosthetic heart valve
CPT/HCPCS: 85610

== ENCOUNTER → 2021-11-11 16:00 | Outpatient (ROUT) | payer MEDICARE, OTHER, SELFPAY ==
[2021-07-05 23:23] VITALS: BMI 19.5
[2021-11-11 16:12] LABS: INR 2.1 (0.9-1.3)
== END ==
PROVIDERS: PCP Family Medicine; Visit Provider Family Medicine
DX: Z79.01 Long term (current) use of anticoagulants (principal)
CPT/HCPCS: 85610

== ENCOUNTER → 2021-12-17 15:47 | Outpatient (ROUT) | payer MEDICARE, OTHER, SELFPAY ==
[2021-07-05 23:23] VITALS: BMI 19.5
[2021-12-17 16:02] LABS: INR 1.4 (0.9-1.3); Prothrombin Time 15.6 SECONDS (10.1-12.7)
== END ==
PROVIDERS: PCP Family Medicine; Visit Provider Family Medicine
DX: Z79.01 Long term (current) use of anticoagulants (principal)
CPT/HCPCS: 85610

== ENCOUNTER → 2022-02-03 10:14 | Outpatient (CLI) | payer MEDICARE, OTHER, SELFPAY ==
[2021-07-05 23:23] VITALS: BMI 19.5
--- NOTE | 2022-02-03 | DI.CT.S_ITS ---
PROCEDURE: CT ABDOMEN PELVIS W CON INDICATIONS: History of small bowel obstruction TECHNIQUE: After the administration of intravenous contrast, axial sections acquired from the lung bases to the pubic symphysis. Coronal and sagittal reformats were performed. For radiation dose reduction, the following was used: automated exposure control, adjustment of mA and/or kV according to patient size. COMPARISON: [facility], CT, CT ABDOMEN PELVIS W CON, 07/05/2021, 20:54. FINDINGS: Image quality: Excellent. Lung bases: Unremarkable. Heart: Cardiomegaly, percutaneous aortic valve replacement, pacemaker. ABDOMEN: Liver: Unremarkable. Gallbladder: There are numerous calcified gallstones present. Mild gallbladder wall prominence. No inflammatory change adjacent to the gallbladder. Biliary ducts: Unremarkable. Pancreas: Unremarkable. Spleen: Unremarkable. Adrenal Glands: Unremarkable. Kidneys and Ureters: Unremarkable. Stomach and Bowel: Previously, there was a hiatal hernia. It is not identified at the time of the current study. There is moderate gastric distention. There is large fecal load. No evidence of bowel obstruction. No dilated small bowel loops. Peritoneum: No abnormal intraperitoneal fluid. No free air. Ventral Wall: No hernias. Abdominal Nodes: No retroperitoneal or mesenteric adenopathy by size criteria. Vessels: Aorta and inferior vena cava are normal in size. PELVIS: Pelvic Organs: Uterus is surgically absent. A pessary is in place. Bladder: Unremarkable. Pelvic Nodes: No enlarged lymph nodes. Miscellaneous: No hernias are seen. Bones: Changes of osteoporosis. Interval Re fracture and percutaneous cement fixation of T12. Interval fracture and percutaneous cement fixation of L1. Interval Re fracture of L3, most likely chronic at this point. IMPRESSION: 1. Cardiomegaly, remote valve replacement, pacemaker. 2. Large fecal load. No evidence of bowel obstruction. 3. Progressive osteoporotic compressions as described above. Since the most recent prior study, T12 and L1 have refractured and have been treated with percutaneous cement fixation. L3 has also refractured, but was not treated. It has the appearance of a chronic compression at this point. Dictated by: Duane Merritt M.D. on 02/03/2022 at 14:01 Approved by: Duane Merritt M.D. on 02/03/2022 at 14:10
[2022-02-03 10:45] LABS: BUN Creatinine Ratio 19.2 (6-22); Blood Urea Nitrogen 15 mg/dL (7-17); Estimated Glomerular Filt Rate > 60 mL/min (>60)
== END ==
PROVIDERS: PCP Family Medicine; Referring Provider Internal Medicine Gastroenterology; Visit Provider Internal Medicine Gastroenterology
DX: R14.0 Abdominal distension (gaseous) (principal); M48.56XA Collapsed vertebra, not elsewhere classified, lumbar region, initial encounter for fracture; I51.7 Cardiomegaly; Z95.2 Presence of prosthetic heart valve; Z95.0 Presence of cardiac pacemaker; Z87.19 Personal history of other diseases of the digestive system
CPT/HCPCS: 36415; 74177; 82565; 84520; Q9967

== ENCOUNTER → 2022-06-09 18:08 | Outpatient (ROUT) | payer MEDICARE, OTHER, SELFPAY ==
[2021-07-05 23:23] VITALS: BMI 19.5
[2022-06-09 18:23] LABS: INR 3.7 (0.9-1.3); Prothrombin Time 42.5 SECONDS (10.1-12.7)
== END ==
PROVIDERS: PCP Family Medicine; Visit Provider Family Medicine
DX: Z79.01 Long term (current) use of anticoagulants (principal)
CPT/HCPCS: 85610

== ENCOUNTER → 2022-11-29 11:03 | Outpatient (ROUT) | payer MEDICARE, OTHER, SELFPAY ==
[2022-06-30 12:30] VITALS: BMI 19.5
[2022-11-29 10:41] LABS: Prothrombin Time 34.3 SECONDS (10.1-12.7)
== END ==
PROVIDERS: PCP Family Medicine; Visit Provider Family Medicine
DX: Z95.2 Presence of prosthetic heart valve (principal); Z79.01 Long term (current) use of anticoagulants
CPT/HCPCS: 85610

== ENCOUNTER → 2023-02-28 12:51 | Outpatient (ROUT) | payer MEDICARE, OTHER, SELFPAY ==
[2022-06-30 12:30] VITALS: BMI 19.5
[2023-02-28 13:13] LABS: INR 2.8 (0.9-1.3); Prothrombin Time 32.4 SECONDS (10.1-12.7)
== END ==
PROVIDERS: PCP Family Medicine; Visit Provider Family Medicine
DX: Z95.2 Presence of prosthetic heart valve (principal); Z79.01 Long term (current) use of anticoagulants
CPT/HCPCS: 85610

== ENCOUNTER 2023-08-01 13:52 | Outpatient (CLI) | payer MEDICARE, OTHER, SELFPAY ==
[2022-06-30 12:30] VITALS: BMI 19.5
[2023-08-01] VITALS (8 sets, daily range): BP systolic 133–173; BP diastolic 59–78; PULSE 74–79; RESP 14–21; TEMP 36.1; O2SAT 94–100
--- NOTE | 2023-08-01 14:30 | DI.RAD.S_ITS ---
PROCEDURE: PAIN L/S FACET INJ/BLK 1ST VANCE INDICATIONS: FACET ARTHOPATHY COMPARISON: [facility], CT, CT LUMBAR SPINE WITHOUT CONTRAST, 01/19/2023, 12:41. FINDINGS: Is Fluoroscopic spot filming was performed to verify placement of spinal needles on both sides at the L3, L4, and L5 levels, as labeled on the films. Appropriate location of the needle tips was confirmed by injection of iodinated contrast. IMPRESSION: Intraprocedural examination demonstrating appropriate positions of the needles. Dictated by: Mauricio De La Rosa M.D. on 08/01/2023 at 15:43 Approved by: Mauricio De La Rosa M.D. on 08/01/2023 at 15:43
[2023-08-01] MEDS: MIDAZOLAM 2 MG/2 ML VIAL 1 MG IV (15:20)
[2023-08-01] MEDS: iopamidoL 15 ML VIAL 3 ML INJ (15:25)
[2023-08-01] MEDS: LIDOCAINE 1% 20 ML 5 ML INJ (15:25)
[2023-08-01] MEDS: BUPIVACAINE 0.5% (PF) 10 ML VIAL 5 ML INJ (15:25)
--- NOTE | 2023-08-01 15:39 | PM.PROC.IR.1 ---
Date/Time/Diagnoses Date of procedure: 08/01/23 Time of procedure: 15:39 Pre-procedure diagnosis: 1. FACET ARTHROPATHY Post-procedure diagnosis: same Procedure Notes Procedure: 1. BILATERAL- L3, L4, L5 DIAGNOSTIC MB BLOCKS with LA Anesthetic Indications: Irma is referred by Dr. Ziegler for treatment of Bilateral Axial LBP. Physician: Manny Cortez Total Fluoroscopy time (seconds): 16 Total sedation minutes: 14 Complications: none Procedure in detail & Post-procedure care: DESCRIPTION OF PROCEDURE Fluoroscopically guided, contrast-controlled bilateral L3, L4 AND L5 medial branch blocks with 0.5cc of 0.5% Marcaine. Following review of allergy and review of potential side effects and complications, including, but not necessarily limited to, infection, allergic reaction, local tissue breakdown, nerve injury, paralysis, stroke and possible , the patient indicated that the patient understood and agreed to proceed. An informed consent document was signed by the patient, witnessed by a nurse, and placed in the patient's chart. After review of previous anaesthesic history and IV conscious sedation the patient was deemed safe to proceed with today's procedure with IV conscious sedation as ASA class II designation. Safety time-out was performed to confirm patient ID, procedure to be performed and site of procedure. IV sedation was accomplished with a combination of 2mg of Versed was administered by the RN after DO order, titrated to patient comfort during the course of the procedure while the patient remained responsive to all verbal commands In the prone position, following sterile prep and drape of the lumbar region, the right L3, L4 AND L5 anatomical location of the medial branch of the dorsal ramus was identified fluoroscopically. Subsequently an anesthetic skin wheal using 1% lidocaine solution was initiated at each of the anatomical spots. Subsequently then a 22-gauge 3.5-inch spinal needle was atraumatically introduced and advanced under fluoroscopic guidance at each of the corresponding sites at the right L3, L4 and L5 MB. After negative aspiration, 0.2cc of Isovue 200 was injected, confirming placement without vascular or intrathecal uptake. Subsequently then 0.5cc of 0.5% Marcaine solution was injected at each of the corresponding sites at the right L3, L4 and L5 medial branch locations. The identical procedure was replicated on the left. The patient tolerated the procedure well without signs or symptoms of complications. The patient tolerated the procedure well without signs or symptoms of complications prior to transfer to the recovery area continued monitoring without incident. Post-procedure, the patient was monitored initiating provocative activities to measure the amount of relief from block of the facetogenic pain. The patient reported a VAS of 7 prior to the procedure and a post-procedure VAS of 1. It has been a pleasure to assist in the diagnostic and therapeutic care of your patient. POST OP INSTRUCTIONS The patient was provided with a Pain Log to complete over the next several hours and subsequent days prior to the patient's follow up with the ordering physician. If the patient has technical writer relief to the solution applied, then they may be a candidate for medial branch rhizotomy. The patient is aware, was provided, once again, with a Pain Log and will follow up with the referring physician for review and clinical correlation
== END 2023-08-01 15:56 | disposition home or self-care (01) ==
PROVIDERS: PCP Family Medicine; Referring Provider Physical Medicine & Rehabilitation; Visit Provider Physical Medicine & Rehabilitation
DX: M47.816 Spondylosis without myelopathy or radiculopathy, lumbar region (principal); M47.817 Spondylosis without myelopathy or radiculopathy, lumbosacral region
CPT/HCPCS: 64493; 64494; 99152; J2250

== ENCOUNTER 2023-10-17 13:47 | Outpatient (CLI) | payer MEDICARE, OTHER, SELFPAY ==
[2023-09-05 11:41] VITALS: BMI 19.5
[2023-10-17] VITALS (10 sets, daily range): BP systolic 130–199; BP diastolic 65–87; PULSE 76–82; RESP 14–20; TEMP 35.9; O2SAT 97–100
--- NOTE | 2023-10-17 14:30 | DI.RAD.S_ITS ---
PROCEDURE: PAIN L/S FACET INJ/BLK 1ST VANCE INDICATIONS: FACET ARTHOPATHY COMPARISON: [facility], , PAIN L/S FACET INJ/BLK 1ST VANCE, 08/01/2023, 16:23. FINDINGS: Fluoroscopic spot filming was performed to verify placement of spinal needles at the bilateral L3, L4, L5 level(s), as labeled on the films. Appropriate location(s) of the needle tip(s) was confirmed by injection of iodinated contrast. IMPRESSION: Intraoperative guidance provided. Dictated by: Viral Armas M.D. on 10/17/2023 at 22:06 Approved by: Viral Armas M.D. on 10/17/2023 at 22:07
[2023-10-17] MEDS: MIDAZOLAM 2 MG/2 ML VIAL IV (15:08)
[2023-10-17] MEDS: LIDOCAINE 1% 20 ML 5 ML INJ (15:14)
[2023-10-17] MEDS: iopamidoL 15 ML VIAL 3 ML INJ (15:15)
[2023-10-17] MEDS: LIDOCAINE 2% INJ SDV 5ML 10 ML INJ (15:15)
--- NOTE | 2023-10-17 15:27 | P.PCN_ITS ---
Date/Time/Diagnoses Date of procedure: 10/17/23 Time of procedure: 15:27 Pre-procedure diagnosis: 1. FACET ARTHROPATHY Post-procedure diagnosis: same Procedure Notes Procedure: 1. BILATERAL L3, L4 AND L5 DIAGNOSTIC MB BLOCKS Indications: Irma is referred by Dr. Zieglre for treatment of Bilateral Axial LBP. Physician: Manny Cortez Total Fluoroscopy time (seconds): 12 Total sedation minutes: 14 Complications: none Procedure in detail & Post-procedure care: DESCRIPTION OF PROCEDURE Fluoroscopically guided, contrast-controlled bilateral L3, L4 AND L5 medial branch blocks with 0.5cc of 2% Lidocaine. Following review of allergy and review of potential side effects and complications, including, but not necessarily limited to, infection, allergic reaction, local tissue breakdown, nerve injury, paralysis, stroke and possible , the patient indicated that the patient understood and agreed to proceed. An informed consent document was signed by the patient, witnessed by a nurse, and placed in the patient's chart. After review of previous anaesthesic history and IV conscious sedation the patient was deemed safe to proceed with today's procedure with IV conscious sedation as ASA class II designation. Safety time-out was performed to confirm patient ID, procedure to be performed and site of procedure. IV sedation was accomplished with a combination of 2mg of Versed was administered by the RN after DO order, titrated to patient comfort during the course of the procedure while the patient remained responsive to all verbal commands In the prone position, following sterile prep and drape of the lumbar region, the right L3, L4 AND L5 anatomical location of the medial branch of the dorsal ramus was identified fluoroscopically. Subsequently an anesthetic skin wheal using 1% lidocaine solution was initiated at each of the anatomical spots. Subsequently then a 22-gauge 3.5-inch spinal needle was atraumatically introduced and advanced under fluoroscopic guidance at each of the corresponding sites at the right L3, L4 and L5 MB. After negative aspiration, 0.2cc of Isovue 200 was injected, confirming placement without vascular or intrathecal uptake. Subsequently then 0.5cc of 2% Lidocaine solution was injected at each of the corresponding sites at the right L3, L4 and L5 medial branch locations. The identical procedure was replicated on the left. The patient tolerated the pro cedure well without signs or symptoms of complications. The patient tolerated the procedure well without signs or symptoms of complications prior to transfer to the recovery area continued monitoring without incident. Post-procedure, the patient was monitored initiating provocative activities to measure the amount of relief from block of the facetogenic pain. The patient reported a VAS of 7 prior to the procedure and a post-procedure VAS of 1. It has been a pleasure to assist in the diagnostic and therapeutic care of your patient. POST OP INSTRUCTIONS The patient was provided with a Pain Log to complete over the next several hours and subsequent days prior to the patient's follow up with the ordering physician. If the patient has motorcycle mechanic relief to the solution applied, then they may be a candidate for medial branch rhizotomy. The patient is aware, was provided, once again, with a Pain Log and will follow up with the referring physician for review and clinical correlation
--- NOTE | 2023-10-17 15:34 | PC.NURSE ---
Patient returned back to post procedure room, mostly sleepy needed multiple touch and verbal stimuli to wake up. Was a 2 max assist from w/c to chair, unable to follow directions.
== END 2023-10-17 16:02 | disposition home or self-care (01) ==
PROVIDERS: PCP Family Medicine; Referring Provider Physical Medicine & Rehabilitation; Visit Provider Physical Medicine & Rehabilitation
DX: M47.816 Spondylosis without myelopathy or radiculopathy, lumbar region (principal)
CPT/HCPCS: 64493; 64494; 99152; J2250

== ENCOUNTER → 2023-12-27 08:39 | Outpatient (CLI) | payer MEDICARE, OTHER, SELFPAY ==
[2023-09-05 11:41] VITALS: BMI 19.5
== END ==
LOC: WC 08:40
PROVIDERS: Family Provider Family Medicine; PCP Family Medicine; Referring Provider Family Medicine; Visit Provider Surgery
DX: S81.802A Unspecified open wound, left lower leg, initial encounter (principal); L98.8 Other specified disorders of the skin and subcutaneous tissue; I73.9 Peripheral vascular disease, unspecified; L53.9 Erythematous condition, unspecified; L08.89 Other specified local infections of the skin and subcutaneous tissue; R60.0 Localized edema; I83.892 Varicose veins of left lower extremity with other complications; I25.10 Atherosclerotic heart disease of native coronary artery without angina pectoris; Z79.01 Long term (current) use of anticoagulants
CPT/HCPCS: 11042; 87070; 87205; 99203; 99213

== ENCOUNTER → 2024-01-03 11:14 | Outpatient (CLI) | payer MEDICARE, OTHER, SELFPAY ==
[2023-09-05 11:41] VITALS: BMI 19.5
== END ==
LOC: WC 11:16
PROVIDERS: Family Provider Family Medicine; PCP Family Medicine; Referring Provider Family Medicine; Visit Provider Surgery
DX: S81.802A Unspecified open wound, left lower leg, initial encounter (principal); L98.8 Other specified disorders of the skin and subcutaneous tissue; I73.9 Peripheral vascular disease, unspecified; I83.892 Varicose veins of left lower extremity with other complications; M79.662 Pain in left lower leg; Z79.01 Long term (current) use of anticoagulants
CPT/HCPCS: 11042; 87070; 87075; 87205; 99213

== ENCOUNTER → 2024-01-10 11:04 | Outpatient (CLI) | payer MEDICARE, OTHER, SELFPAY ==
[2023-09-05 11:41] VITALS: BMI 19.5
--- NOTE | 2024-01-10 11:06 | DI.US.S_ITS ---
PROCEDURE: US ARTERIAL DUPLEX LE LT INDICATIONS: eval arterial status TECHNIQUE: Color and pulse Doppler interrogation was performed of the left lower extremity arterial system, with image documentation. COMPARISON: None. FINDINGS: Common femoral artery: 106 cm/sec, with biphasic flow. Deep femoral artery: 92 cm/sec, with biphasic flow. Proximal superficial femoral artery: 83 cm/sec, with biphasic flow. Mid superficial femoral artery: 76 cm/sec, with biphasic flow. Distal superficial femoral artery: 66 cm/sec, with biphasic flow. Popliteal artery: 96 cm/sec, with biphasic flow. Posterior tibial artery: 56 cm/sec, with monophasic flow. Anterior tibial artery/dorsalis pedis: 114/29 cm/sec, with monophasic/monophasic flow. Carbajal-scale imaging description: Wide patency from the common femoral through the popliteal with normal waveforms. Monophasic waveforms in the posterior tibial and anterior tibial arteries are consistent with small vessel disease IMPRESSION: 1. Wide patency from the common femoral through the popliteal with normal waveforms indicating no inflow stenosis. 2. Monophasic waveforms in the distal runoff vessels suggests possible trifurcation and more distal disease. Dictated by: Duane Merritt M.D. on 01/10/2024 at 18:44 Approved by: Duane Merritt M.D. on 01/10/2024 at 18:54
== END ==
PROVIDERS: Family Provider Family Medicine; PCP Family Medicine; Referring Provider Surgery; Visit Provider Surgery
DX: S81.802A Unspecified open wound, left lower leg, initial encounter (principal)
CPT/HCPCS: 93926

== ENCOUNTER → 2024-01-10 15:13 | Outpatient (CLI) | payer MEDICARE, OTHER, SELFPAY ==
[2023-09-05 11:41] VITALS: BMI 19.5
== END ==
PROVIDERS: Family Provider Family Medicine; PCP Family Medicine; Referring Provider Family Medicine; Visit Provider Surgery
DX: S81.802A Unspecified open wound, left lower leg, initial encounter (principal); I83.892 Varicose veins of left lower extremity with other complications; L98.8 Other specified disorders of the skin and subcutaneous tissue; R60.0 Localized edema; L53.9 Erythematous condition, unspecified; I25.10 Atherosclerotic heart disease of native coronary artery without angina pectoris
CPT/HCPCS: 99213

== ENCOUNTER → 2024-01-16 14:17 | Outpatient (CLI) | payer MEDICARE, OTHER, SELFPAY ==
[2023-09-05 11:41] VITALS: BMI 19.5
== END ==
PROVIDERS: Family Provider Family Medicine; PCP Family Medicine; Referring Provider Family Medicine; Visit Provider Surgery
DX: S81.812A Laceration without foreign body, left lower leg, initial encounter (principal); L53.9 Erythematous condition, unspecified; R60.0 Localized edema; I73.9 Peripheral vascular disease, unspecified; I83.892 Varicose veins of left lower extremity with other complications; M79.662 Pain in left lower leg; I25.10 Atherosclerotic heart disease of native coronary artery without angina pectoris
CPT/HCPCS: 99213

== ENCOUNTER → 2024-01-24 14:18 | Outpatient (CLI) | payer MEDICARE, OTHER, SELFPAY ==
[2023-09-05 11:41] VITALS: BMI 19.5
== END ==
LOC: WC 14:19
PROVIDERS: Family Provider Family Medicine; PCP Family Medicine; Referring Provider Family Medicine; Visit Provider Surgery
DX: S81.802A Unspecified open wound, left lower leg, initial encounter (principal); L98.8 Other specified disorders of the skin and subcutaneous tissue; I73.9 Peripheral vascular disease, unspecified; I83.892 Varicose veins of left lower extremity with other complications; R60.0 Localized edema; L53.9 Erythematous condition, unspecified; I25.10 Atherosclerotic heart disease of native coronary artery without angina pectoris; Z79.01 Long term (current) use of anticoagulants
CPT/HCPCS: 11042; 99213

== ENCOUNTER → 2024-01-31 14:10 | Outpatient (CLI) | payer MEDICARE, OTHER, SELFPAY ==
[2023-09-05 11:41] VITALS: BMI 19.5
== END ==
PROVIDERS: Family Provider Family Medicine; PCP Family Medicine; Referring Provider Family Medicine; Visit Provider Nurse Practitioner Family
DX: S81.802A Unspecified open wound, left lower leg, initial encounter (principal); L98.8 Other specified disorders of the skin and subcutaneous tissue; R60.0 Localized edema; L53.9 Erythematous condition, unspecified; R23.4 Changes in skin texture; I83.892 Varicose veins of left lower extremity with other complications; I73.9 Peripheral vascular disease, unspecified; I48.11 Longstanding persistent atrial fibrillation; M47.816 Spondylosis without myelopathy or radiculopathy, lumbar region; M48.061 Spinal stenosis, lumbar region without neurogenic claudication; S32.040S Wedge compression fracture of fourth lumbar vertebra, sequela; S32.010S Wedge compression fracture of first lumbar vertebra, sequela; S22.080S Wedge compression fracture of T11-T12 vertebra, sequela; S32.030S Wedge compression fracture of third lumbar vertebra, sequela; Z79.01 Long term (current) use of anticoagulants; Z95.0 Presence of cardiac pacemaker
CPT/HCPCS: 11042; 99213; 99214

== ENCOUNTER → 2024-02-13 14:53 | Outpatient (CLI) | payer MEDICARE, OTHER, SELFPAY ==
[2023-09-05 11:41] VITALS: BMI 19.5
== END ==
PROVIDERS: Family Provider Family Medicine; PCP Family Medicine; Referring Provider Family Medicine; Visit Provider Surgery
DX: S81.802A Unspecified open wound, left lower leg, initial encounter (principal); L98.8 Other specified disorders of the skin and subcutaneous tissue; I83.892 Varicose veins of left lower extremity with other complications; I73.9 Peripheral vascular disease, unspecified; R60.0 Localized edema; L53.9 Erythematous condition, unspecified
CPT/HCPCS: 11042

== ENCOUNTER → 2024-02-20 08:58 | Outpatient (CLI) | payer MEDICARE, OTHER, SELFPAY ==
[2023-09-05 11:41] VITALS: BMI 19.5
== END ==
LOC: WC 09:00
PROVIDERS: Family Provider Family Medicine; PCP Family Medicine; Referring Provider Family Medicine; Visit Provider Surgery
DX: I73.9 Peripheral vascular disease, unspecified (principal); L97.822 Non-pressure chronic ulcer of other part of left lower leg with fat layer exposed; R23.4 Changes in skin texture; R60.0 Localized edema; L53.8 Other specified erythematous conditions; L98.8 Other specified disorders of the skin and subcutaneous tissue
CPT/HCPCS: 11042; 99213

== ENCOUNTER → 2024-02-27 10:30 | Outpatient (CLI) | payer MEDICARE, OTHER, SELFPAY ==
[2023-09-05 11:41] VITALS: BMI 19.5
== END ==
PROVIDERS: Family Provider Family Medicine; PCP Family Medicine; Referring Provider Family Medicine; Visit Provider Surgery
DX: S81.802A Unspecified open wound, left lower leg, initial encounter (principal); L98.8 Other specified disorders of the skin and subcutaneous tissue; L97.822 Non-pressure chronic ulcer of other part of left lower leg with fat layer exposed; I73.9 Peripheral vascular disease, unspecified; I83.892 Varicose veins of left lower extremity with other complications; L53.9 Erythematous condition, unspecified; L08.89 Other specified local infections of the skin and subcutaneous tissue
CPT/HCPCS: 11042

== ENCOUNTER → 2024-03-06 10:02 | Outpatient (CLI) | payer MEDICARE, OTHER, SELFPAY ==
[2023-09-05 11:41] VITALS: BMI 19.5
== END ==
PROVIDERS: Family Provider Family Medicine; PCP Family Medicine; Referring Provider Family Medicine; Visit Provider Surgery
DX: S81.802A Unspecified open wound, left lower leg, initial encounter (principal); L98.8 Other specified disorders of the skin and subcutaneous tissue; L97.822 Non-pressure chronic ulcer of other part of left lower leg with fat layer exposed; I73.9 Peripheral vascular disease, unspecified; R60.0 Localized edema; L53.9 Erythematous condition, unspecified; M79.662 Pain in left lower leg; I83.028 Varicose veins of left lower extremity with ulcer other part of lower leg
CPT/HCPCS: 11042

== ENCOUNTER → 2024-03-13 11:22 | Outpatient (CLI) | payer MEDICARE, OTHER, SELFPAY ==
[2023-09-05 11:41] VITALS: BMI 19.5
== END ==
PROVIDERS: Family Provider Family Medicine; PCP Family Medicine; Referring Provider Family Medicine; Visit Provider Surgery
DX: L97.822 Non-pressure chronic ulcer of other part of left lower leg with fat layer exposed (principal); S81.802A Unspecified open wound, left lower leg, initial encounter; L98.8 Other specified disorders of the skin and subcutaneous tissue; I73.9 Peripheral vascular disease, unspecified; R60.0 Localized edema; L53.9 Erythematous condition, unspecified; M79.662 Pain in left lower leg; I25.10 Atherosclerotic heart disease of native coronary artery without angina pectoris
CPT/HCPCS: 11042; 99213

== ENCOUNTER → 2024-03-20 10:40 | Outpatient (CLI) | payer MEDICARE, OTHER, SELFPAY ==
[2023-09-05 11:41] VITALS: BMI 19.5
== END ==
LOC: WC 10:41
PROVIDERS: Family Provider Family Medicine; PCP Family Medicine; Referring Provider Family Medicine; Visit Provider Surgery
DX: L97.822 Non-pressure chronic ulcer of other part of left lower leg with fat layer exposed (principal); I73.9 Peripheral vascular disease, unspecified; R60.0 Localized edema; L53.9 Erythematous condition, unspecified; I83.028 Varicose veins of left lower extremity with ulcer other part of lower leg; M79.662 Pain in left lower leg; Z79.01 Long term (current) use of anticoagulants
CPT/HCPCS: 11042; 87070; 87075; 87077; 87147; 87205; 99213

== ENCOUNTER → 2024-03-27 10:09 | Outpatient (CLI) | payer MEDICARE, OTHER, SELFPAY ==
[2023-09-05 11:41] VITALS: BMI 19.5
== END ==
PROVIDERS: Family Provider Family Medicine; PCP Family Medicine; Referring Provider Family Medicine; Visit Provider Surgery
DX: S81.802A Unspecified open wound, left lower leg, initial encounter (principal); L98.8 Other specified disorders of the skin and subcutaneous tissue; L53.9 Erythematous condition, unspecified; I73.9 Peripheral vascular disease, unspecified; I83.892 Varicose veins of left lower extremity with other complications; M79.662 Pain in left lower leg
CPT/HCPCS: 11042

== ENCOUNTER → 2024-04-03 09:56 | Outpatient (CLI) | payer MEDICARE, OTHER, SELFPAY ==
[2023-09-05 11:41] VITALS: BMI 19.5
== END ==
PROVIDERS: Family Provider Family Medicine; PCP Family Medicine; Referring Provider Family Medicine; Visit Provider Surgery
DX: S81.802A Unspecified open wound, left lower leg, initial encounter (principal); L98.8 Other specified disorders of the skin and subcutaneous tissue; I73.9 Peripheral vascular disease, unspecified; I83.892 Varicose veins of left lower extremity with other complications; L53.9 Erythematous condition, unspecified; M79.662 Pain in left lower leg; R23.4 Changes in skin texture
CPT/HCPCS: 11042

== ENCOUNTER → 2024-04-10 10:14 | Outpatient (CLI) | payer MEDICARE, OTHER, SELFPAY ==
[2023-09-05 11:41] VITALS: BMI 19.5
== END ==
LOC: WC 10:21
PROVIDERS: Family Provider Family Medicine; PCP Family Medicine; Referring Provider Family Medicine; Visit Provider Surgery
DX: L97.822 Non-pressure chronic ulcer of other part of left lower leg with fat layer exposed (principal); I73.9 Peripheral vascular disease, unspecified; L53.9 Erythematous condition, unspecified; I83.028 Varicose veins of left lower extremity with ulcer other part of lower leg; R60.0 Localized edema; I25.10 Atherosclerotic heart disease of native coronary artery without angina pectoris
CPT/HCPCS: 11042; 99212; 99213

== ENCOUNTER → 2024-04-17 11:17 | Outpatient (CLI) | payer MEDICARE, OTHER, SELFPAY ==
[2023-09-05 11:41] VITALS: BMI 19.5
== END ==
LOC: WC 11:18
PROVIDERS: Family Provider Family Medicine; PCP Family Medicine; Referring Provider Family Medicine; Visit Provider Surgery
DX: S81.802A Unspecified open wound, left lower leg, initial encounter (principal); L98.8 Other specified disorders of the skin and subcutaneous tissue; L53.9 Erythematous condition, unspecified; I73.9 Peripheral vascular disease, unspecified; I83.892 Varicose veins of left lower extremity with other complications; M79.662 Pain in left lower leg; Z79.01 Long term (current) use of anticoagulants
CPT/HCPCS: 11042

== ENCOUNTER → 2024-04-24 14:35 | Outpatient (CLI) | payer MEDICARE, OTHER, SELFPAY ==
[2023-09-05 11:41] VITALS: BMI 19.5
== END ==
LOC: WC 14:36
PROVIDERS: Family Provider Family Medicine; PCP Family Medicine; Referring Provider Family Medicine; Visit Provider Surgery
DX: S81.802A Unspecified open wound, left lower leg, initial encounter (principal); L98.8 Other specified disorders of the skin and subcutaneous tissue; L53.9 Erythematous condition, unspecified; I73.9 Peripheral vascular disease, unspecified; I83.892 Varicose veins of left lower extremity with other complications; M79.662 Pain in left lower leg; Z79.01 Long term (current) use of anticoagulants
CPT/HCPCS: 11042

== ENCOUNTER 2024-04-25 09:43 | Outpatient (CLI) | payer MEDICARE, OTHER, SELFPAY ==
[2023-09-05 11:41] VITALS: BMI 19.5
[2024-04-25] VITALS (15 sets, daily range): BP systolic 115–183; BP diastolic 55–84; PULSE 72–80; RESP 12–20; TEMP 36.6; O2SAT 96–100
--- NOTE | 2024-04-25 11:15 | DI.RAD.S_ITS ---
PROCEDURE: PAIN L/S MED/LAT N RFA BILAT INDICATIONS: SPONDYLOSIS COMPARISON: None. FINDINGS: Fluoroscopic spot filming was performed to verify placement of spinal needles at the bilateral L3, L4, L5 level(s), as labeled on the films. Appropriate location(s) of the needle tip(s) was confirmed by injection of iodinated contrast. IMPRESSION: Intraoperative guidance for bilateral L3/L4/L5 medial branch rhizotomy. Dictated by: Greg Sanchez M.D. on 04/26/2024 at 16:42 Approved by: Greg Sanchez M.D. on 04/26/2024 at 16:43
[2024-04-25] MEDS: MIDAZOLAM 2 MG/2 ML VIAL 1 MG IV (12:14)
[2024-04-25] MEDS: fentaNYL 100 MCG/2 ML INJ 25 MCG IV (12:14)
[2024-04-25] MEDS: BUPIVACAINE 0.5% (PF) 10 ML VIAL 5 ML INJ (12:36)
[2024-04-25] MEDS: LIDOCAINE 1% 20 ML 5 ML INJ (12:37)
[2024-04-25] MEDS: MIDAZOLAM 2 MG/2 ML VIAL 0.5 MG IV (12:44)
--- NOTE | 2024-04-25 13:09 | P.PCN_ITS ---
Date/Time/Diagnoses Date of procedure: 05/08/24 Time of procedure: 13:09 Pre-procedure diagnosis: 1. RECALCITRANT FACET ARTHROPATHY Post-procedure diagnosis: same Procedure Notes Procedure: 1. BILATERAL L3, L4 AND L5 MEDIAL BRANCH RADIOFREQUENCY NEUROTOMY Indications: Irma is referred by Dr. Ziegler for treatment of facet arthropathy. Physician: Manny Cortez Total Fluoroscopy time (seconds): 21 Total sedation minutes: 44 Complications: none Procedure in detail & Post-procedure care: DESCRIPTION OF PROCEDURE Bilateral L3, L4 and L5 medial branch radiofrequency neurotomy The patient is well known to this clinic having undergone previous facet injections with good but temporary relief. The patient has experienced appropriate, concordant relief with previous facet and median branch blocks but the patient's pain has been recalcitrant to further conservative measures. Therefore, based upon the patient's relief and persistent symptoms, the patient is considered an appropriate candidate for facet rhizotomy. All of the patient's questions regarding the risks versus benefits of the procedure, including, but not limited to, bleeding, infection, temporary as well as lasting nerve injury, paralysis, stroke, and , as well treatment alternatives were answered to satisfaction. After obtaining informed consent, denial of pertinent drug allergies, as well as being made aware of the potential risks of bleeding, infection, spinal cord trauma, paralysis, temporary and permanent nerve damage, seizure, stroke, and possible , the patient was brought to the fluoroscopy suite and positioned prone on the fluoroscopy table. After review of previous anaesthesic history and IV conscious sedation the patient was deemed safe to proceed with today's procedure with IV conscious sedation as ASA class II designation. Safety time-out was performed to confirm patient ID, procedure to be performed and site of procedure. IV sedation was accomplished with a combination of 1.5mg of Versed and 25mcg of Fentanyl administered by the RN after DO order, titrated to patient comfort during the course of the procedure while the patient remained responsive to all verbal commands. The lumbar region was prepped in usual sterile fashion and covered with a fenestrated drape in the usual sterile fashion. Appropriate monitors applied including pulse oximeter, pulse, and blood pressure for regular monitoring throughout the procedure. After local infiltration using 1% lidocaine, under fluoroscopic guidance, a 10- cm RF insulated needle with a 10-mm active tip was positioned parallel to the ju nction of the right the superior articulating process where the L5 medial branch resides. Needle placement was confirmed with motor stimulation of .5v on the right which produced local stimulation without radicular component. The stimulation was then increased to 2v with, once again, only local multifidus stimulation without radicular component. The needle was then removed and the identical procedure was performed along the length of the right L4 medial branch with motor stimulation at .7v on the right. The identical procedure was once again performed along the length of the right L3 and medial branch with motor stimulation of .5v on the right. The medial branches were then anesthetised with 0.5% marcaine. This was then followed by two discreet lesions performed at 80 degrees Celsius for 90 seconds each. The identical procedures were repeated on the left. The patient tolerated the procedure well without signs or symptoms of complications prior to transfer to the recovery area continued monitoring without incident. The patient was then transferred to the recovery area where they were observed for an appropriate period of time after the injection. The patient reported a VAS score of 7 prior to the procedure and a post-procedure VAS of 0. POST OP INSTRUCTIONS The patient was provided a Pain Log to continue to record the patient's response to the target-specific procedure prior to the patient's follow-up visit with the referring physician. Additionally, specific post-injection care instructions and a contact number to our office were provided if concerns arise regarding possible complications associated with the procedure are suspected.
== END 2024-04-25 13:21 | disposition home or self-care (01) ==
PROVIDERS: Family Provider Family Medicine; PCP Family Medicine; Referring Provider Physical Medicine & Rehabilitation; Visit Provider Physical Medicine & Rehabilitation
DX: M47.816 Spondylosis without myelopathy or radiculopathy, lumbar region (principal)
CPT/HCPCS: 64635; 64636; 99152; 99153; J2250; J3010

== ENCOUNTER → 2024-04-29 09:15 | Outpatient (CLI) | payer MEDICARE, OTHER, SELFPAY ==
[2023-09-05 11:41] VITALS: BMI 19.5
--- NOTE | 2024-04-29 09:17 | DI.NM.S_ITS ---
PROCEDURE: NM EDNA PERF SPECT R&S PHARM Rest and pharmacological stress myocardial perfusion SPECT with gated imaging and ejection fraction RADIOPHARMACEUTICAL: 9.5 mCi Tc-99m tetrafosmin IV at rest and 25.3 mCi Tc-99m tetrafosmin IV at peak effect of pharmacological stress. A 2-lco-[id number] was performed. INDICATIONS: S/P CABG X1, ATKINS TECHNIQUE: Radiopharmaceutical was injected at peak stress test, and also at rest. SPECT images were obtained. SPECT myocardial perfusion images were displayed in short axis, horizontal long axis, and vertical long axis views. Gated images were reviewed using IForem software. COMPARISON: None. CARDIAC STRESS: A pharmacologic stress test was performed under the supervision of an attending staff, using an infusion of regadenoson 0.4 mg IV. Hemodynamic data: There is normal blood pressure and heart rate response to pharmacologic stress. Symptoms: The patient denied anginal chest pain. EKG: No diagnostic changes of ischemia; no ectopy. FINDINGS: Raw data: There is good myocardial uptake of radiotracer. No significant motion artifacts. There is note of diaphragmatic attenuation. Mzbr-qr-xygsp ratio is 0.31 (normal is less than 0.38 for tetrafosmin tracer). Left ventricle function: Gated images demonstrate normal left ventricular wall thickening. No segmental wall motion abnormalities. No transient ischemic dilation; TID is 0.91 (normal less than 1.3). Left ventricle resting end diastolic volume is 75 mL. Left ventricle stress ejection fraction is >75%; normal range is above 45%. Myocardial perfusion: There is a large sized, moderate to severe intensity fixed inferior and inferolateral wall defect. No reversible perfusion defects. IMPRESSION: Low risk study for ischemia. No reversible perfusion defects. The large size, moderate to severe intensity fixed inferior and inferolateral wall defect is occurring in the setting of normal wall motion and diaphragmatic attenuation. Prior infarct in this territory cannot be ruled out. Normal LV size with hyperdynamic function. Dictated by: Maggi Dave D.O. on 04/29/2024 at 16:45 Approved by: Maggi Dave D.O. on 04/29/2024 at 16:49
== END ==
PROVIDERS: Family Provider Family Medicine; PCP Family Medicine; Referring Provider Physician Assistant; Visit Provider Physician Assistant
DX: R06.09 Other forms of dyspnea (principal); Z95.1 Presence of aortocoronary bypass graft
CPT/HCPCS: 78452; 93017; A9502; J2785

== ENCOUNTER → 2024-05-01 14:14 | Outpatient (CLI) | payer MEDICARE, OTHER, SELFPAY ==
[2023-09-05 11:41] VITALS: BMI 19.5
== END ==
PROVIDERS: Family Provider Family Medicine; PCP Family Medicine; Referring Provider Family Medicine; Visit Provider Physician Assistant
DX: L97.822 Non-pressure chronic ulcer of other part of left lower leg with fat layer exposed (principal); I73.9 Peripheral vascular disease, unspecified; L53.9 Erythematous condition, unspecified; M79.662 Pain in left lower leg; Z79.01 Long term (current) use of anticoagulants
CPT/HCPCS: 11042; 99213

== ENCOUNTER → 2024-05-08 11:07 | Outpatient (CLI) | payer MEDICARE, OTHER, SELFPAY ==
[2023-09-05 11:41] VITALS: BMI 19.5
== END ==
PROVIDERS: Family Provider Family Medicine; PCP Family Medicine; Referring Provider Family Medicine; Visit Provider Surgery
DX: I73.9 Peripheral vascular disease, unspecified (principal); L97.822 Non-pressure chronic ulcer of other part of left lower leg with fat layer exposed; R23.4 Changes in skin texture; L53.8 Other specified erythematous conditions
CPT/HCPCS: 11042; 99212; 99213

== ENCOUNTER → 2024-05-14 13:38 | Outpatient (CLI) | payer MEDICARE, OTHER, SELFPAY ==
[2023-09-05 11:41] VITALS: BMI 19.5
--- NOTE | 2024-05-14 13:39 | DI.ECHO.S_ITS ---
[facility] : : [address] : : [place] : : [id number] : : Phone: [phone] Echocardiogram Report + + :Name: ISAAC ROSSI Study Date: 05/14/2024 Height: 65.5 in: :[facility] ReadingLocation: Weight: 107 lb : : Gender: Female BSA: 1.5 m2 : :: 1935 Age: 88 yrs BP: 137/75 mmHg: :Reason For Study: CARDIOMYOPATHY : :Ordering Physician: ANNABELLA, : :NURA Performed By: Iman Styles : :Referring: JACKIE PRAKASH P.A-C : + + Interpretation Summary The left ventricle is normal in size and wall thickness. The ejection fraction is estimated to be 55-60%. Previous LVEF 50 to 55%. There is a mild dyssynchronous contraction pattern due to the paced rhythm. There appears to be hypokinesis of distal inferior wall extending into the distal inferior lateral wall without any significant change. E/E' med: 59.6. Suggests elevated filling pressure. The right ventricle is normal size. The right ventricular systolic function is normal. There is a pacemaker lead in the right ventricle. An annuloplasty ring is noted in the mitral position. There is moderate to severe mitral annular calcification. There is moderate mitral regurgitation. The mitral valve mean gradient is 7.7 mmHg. There is moderate mitral stenosis.. Previously mean gradient was 8.5 mmHg and mild mitral regurgitation. There is a bioprosthetic aortic valve. The prosthetic aortic valve is well-seated. The peak aortic velocity is 1.7 m/sec. The aortic valve mean gradient is 6.5 mmHg. The peak aortic velocity on the previous exam was 1.78 m/sec. There is no hemodynamically significant valvular aortic stenosis. There is mild tricuspid regurgitation. The right ventricular systolic pressure is estimated to be at least 27 mmHg based on an estimated right atrial pressure of 8 mm Hg. Procedure: A two-dimensional transthoracic echocardiogram with color flow and Doppler was performed. The study quality was technically adequate. Comparison is made with the echocardiogram of 07/22/2019. The patient has a paced rhythm. The heart rate ranged between 66-73 bpm during the study. Left Ventricle: The left ventricle is normal in size and wall thickness. There is no thrombus. The ejection fraction is estimated to be 55-60%. There appears to be hypokinesis of distal inferior wall extending into the distal inferior lateral wall without any significant change. There is a mild dyssynchronous contraction pattern due to the paced rhythm. Diastolic function could not be accurately assessed due to confounding valvular disease. E/E' med: 59.6. Diastolic parameters suggest probable elevated filling pressures. Right Ventricle: The right ventricle is normal size. There is a pacemaker lead in the right ventricle. The right ventricular systolic function is normal. Atria: The left atrium is moderately dilated. There has been no significant change since the previous study. The right atrium is mildly dilated. There is a catheter/pacemaker lead seen in the right atrium. There is no Doppler evidence for an interatrial shunt. Mitral Valve: There is moderate to severe mitral annular calcification. The mitral valve chordae are thickened and/or calcified. An annuloplasty ring is noted in the mitral position. The mitral valve mean gradient is 7.7 mmHg. There is moderate mitral stenosis. There is moderate mitral regurgitation. Aortic Valve: There is a bioprosthetic aortic valve. The prosthetic aortic valve is well-seated. The peak aortic velocity is 1.7 m/sec. The aortic valve mean gradient is 6.5 mmHg. The peak aortic velocity on the previous exam was 1.78 m/sec. There is no hemodynamically significant valvular aortic stenosis. There is trace aortic regurgitation. Tricuspid Valve: The tricuspid valve is not well visualized, but is grossly normal. There is mild tricuspid regurgitation. The right ventricular systolic pressure is estimated to be at least 27 mmHg based on an estimated right atrial pressure of 8 mm Hg. Pulmonic Valve: The pulmonic valve leaflets are thin and pliable; valve motion is normal. There is moderate pulmonic regurgitation. Great Vessels: The aortic root is not well visualized but is probably normal size. The dimensions of the ascending aorta are normal. The IVC is dilated (diameter is greater than 2.1 cm) yet it collapses greater than 50% with a sniff. This suggests a right atrial pressure of 8 mm Hg. Pericardium/ Pleura There is no pericardial effusion. There is no pleural effusion. MMode/2D Measurements & Calculations LVIDd: 3.9 cm LVOT diam: 1.9 cm LVIDs: 2.7 cm asc Aorta Diam: 3.2 cm FS: 29.7 % IVSd: 1.0 cm LVPWd: 0.90 cm LV thompson. diameter/BSA (cm/m^2): 2.5 LV sys. diameter/BSA (cm/m^2): 1.8 LA A2 area: 22.3 cm2 RA long axis: 5.3 cm LA A4 area: 20.5 cm2 RA area: 17.9 cm2 LA length (vol): 5.6 cm RA vol: 51.5 ml LA vol: 69.8 ml RA : 33.7 ml/m2 LA vol index: 45.7 ml/m2 IVC diam: 2.1 cm RVD1 (basal): 3.3 cm RVD2 (mid): 2.8 cm TAPSE: 1.6 cm Doppler Measurements & Calculations Ao V2 max: 170.7 cm/sec LVOT Max Skyler: 122.9 cm/sec Ao V2 mean: 116.3 cm/sec LV V1 max P.0 mmHg Ao max P.8 mmHg LV V1 VTI: 25.3 cm Ao mean P.5 mmHg GABRIEL(I,D): 1.9 cm2 Ao V2 VTI: 37.3 cm GABRIEL(V,D): 2.0 cm2 sev ratio: 0.68 GABRIEL indexed to BSA (cm^2/m^2): 1.2 MV E max skyler: 197.8 cm/sec TR max skyler: 217.4 cm/sec MV A max skyler: 106.8 cm/sec TR max P.0 mmHg MV E/A: 1.9 PA V2 max: 102.2 cm/sec Med Peak E' Skyler: 3.3 cm/sec PA V2 mean: 69.5 cm/sec E/E' med: 59.6 PA mean P.1 mmHg Lat Peak E' Skyler: 6.2 cm/sec PA pr(Accel): 22.5 mmHg E/E' lat: 31.8 E/e' average: 45.7 MV dec time: 0.48 sec MVA(VTI): 1.1 cm2 MV V2 mean: 128.9 cm/sec SV(LVOT): 71.1 ml MV mean P.7 mmHg MV V2 VTI: 62.0 cm Reading Physician:05:42 PM
== END ==
PROVIDERS: Family Provider Family Medicine; PCP Family Medicine; Referring Provider Physician Assistant; Visit Provider Physician Assistant
DX: I08.1 Rheumatic disorders of both mitral and tricuspid valves (principal); I42.9 Cardiomyopathy, unspecified; R06.09 Other forms of dyspnea; Z95.1 Presence of aortocoronary bypass graft; Z95.0 Presence of cardiac pacemaker; Z95.2 Presence of prosthetic heart valve
CPT/HCPCS: 93306

== ENCOUNTER → 2024-05-15 10:46 | Outpatient (CLI) | payer MEDICARE, OTHER, SELFPAY ==
[2023-09-05 11:41] VITALS: BMI 19.5
== END ==
PROVIDERS: Family Provider Family Medicine; PCP Family Medicine; Referring Provider Family Medicine; Visit Provider Surgery
DX: L97.822 Non-pressure chronic ulcer of other part of left lower leg with fat layer exposed (principal); I73.9 Peripheral vascular disease, unspecified; I83.028 Varicose veins of left lower extremity with ulcer other part of lower leg; L53.9 Erythematous condition, unspecified; R23.4 Changes in skin texture; M79.662 Pain in left lower leg; Z79.01 Long term (current) use of anticoagulants
CPT/HCPCS: 11042

== ENCOUNTER → 2024-05-22 10:45 | Outpatient (CLI) | payer MEDICARE, OTHER, SELFPAY ==
[2023-09-05 11:41] VITALS: BMI 19.5
== END ==
PROVIDERS: Family Provider Family Medicine; PCP Family Medicine; Referring Provider Family Medicine; Visit Provider Surgery
DX: L97.822 Non-pressure chronic ulcer of other part of left lower leg with fat layer exposed (principal); L53.9 Erythematous condition, unspecified; I73.9 Peripheral vascular disease, unspecified; I83.892 Varicose veins of left lower extremity with other complications; M79.662 Pain in left lower leg; Z79.01 Long term (current) use of anticoagulants
CPT/HCPCS: 11042

== ENCOUNTER → 2024-05-28 10:28 | Outpatient (CLI) | payer MEDICARE, OTHER, SELFPAY ==
[2023-09-05 11:41] VITALS: BMI 19.5
== END ==
PROVIDERS: Family Provider Family Medicine; PCP Family Medicine; Referring Provider Family Medicine; Visit Provider Surgery
DX: L97.822 Non-pressure chronic ulcer of other part of left lower leg with fat layer exposed (principal); L53.9 Erythematous condition, unspecified; I73.9 Peripheral vascular disease, unspecified; I83.892 Varicose veins of left lower extremity with other complications; Z79.01 Long term (current) use of anticoagulants
CPT/HCPCS: 11042

== ENCOUNTER → 2024-05-28 13:56 | Outpatient (ROUT) | payer MEDICARE, OTHER, SELFPAY ==
[2023-09-05 11:41] VITALS: BMI 19.5
[2024-05-28 14:05] LABS: INR 2.2 (0.9-1.3); Prothrombin Time 24.3 SECONDS (9.4-12.5)
== END ==
PROVIDERS: Family Provider Family Medicine; PCP Family Medicine; Visit Provider Family Medicine
DX: Z79.01 Long term (current) use of anticoagulants (principal); I48.0 Paroxysmal atrial fibrillation
CPT/HCPCS: 85610

== ENCOUNTER → 2024-06-05 11:23 | Outpatient (CLI) | payer MEDICARE, OTHER, SELFPAY ==
[2023-09-05 11:41] VITALS: BMI 19.5
== END ==
PROVIDERS: Family Provider Family Medicine; PCP Family Medicine; Referring Provider Family Medicine; Visit Provider Surgery
DX: L97.822 Non-pressure chronic ulcer of other part of left lower leg with fat layer exposed (principal); L53.9 Erythematous condition, unspecified; R60.0 Localized edema; I73.9 Peripheral vascular disease, unspecified; I83.028 Varicose veins of left lower extremity with ulcer other part of lower leg; M79.662 Pain in left lower leg; I25.10 Atherosclerotic heart disease of native coronary artery without angina pectoris; Z79.01 Long term (current) use of anticoagulants
CPT/HCPCS: 11042; 99213

== ENCOUNTER → 2024-06-05 11:32 | Outpatient (CLI) | payer MEDICARE, OTHER, SELFPAY ==
[2023-09-05 11:41] VITALS: BMI 19.5
[2024-06-05 11:44] LABS: INR 2.7 (0.9-1.3); Prothrombin Time 29.6 SECONDS (9.4-12.5)
== END ==
PROVIDERS: Family Provider Family Medicine; PCP Family Medicine; Visit Provider Family Medicine
DX: I48.0 Paroxysmal atrial fibrillation (principal); Z79.01 Long term (current) use of anticoagulants; L97.822 Non-pressure chronic ulcer of other part of left lower leg with fat layer exposed; L53.9 Erythematous condition, unspecified; R60.0 Localized edema; I73.9 Peripheral vascular disease, unspecified; I83.028 Varicose veins of left lower extremity with ulcer other part of lower leg; M79.662 Pain in left lower leg; I25.10 Atherosclerotic heart disease of native coronary artery without angina pectoris
CPT/HCPCS: 11042; 85610

== ENCOUNTER → 2024-06-12 10:31 | Outpatient (CLI) | payer MEDICARE, OTHER, SELFPAY ==
[2023-09-05 11:41] VITALS: BMI 19.5
== END ==
PROVIDERS: Family Provider Family Medicine; PCP Family Medicine; Referring Provider Family Medicine; Visit Provider Surgery
DX: I73.9 Peripheral vascular disease, unspecified (principal); L97.822 Non-pressure chronic ulcer of other part of left lower leg with fat layer exposed; L53.9 Erythematous condition, unspecified; M79.662 Pain in left lower leg; Z79.01 Long term (current) use of anticoagulants
CPT/HCPCS: 11042

== ENCOUNTER → 2024-06-14 08:45 | Outpatient (CLI) | payer MEDICARE, OTHER, SELFPAY ==
[2023-09-05 11:41] VITALS: BMI 19.5
== END ==
LOC: WC 08:47
PROVIDERS: Family Provider Family Medicine; PCP Family Medicine; Referring Provider Family Medicine; Visit Provider Physician Assistant
DX: L97.822 Non-pressure chronic ulcer of other part of left lower leg with fat layer exposed (principal); I87.2 Venous insufficiency (chronic) (peripheral); L53.9 Erythematous condition, unspecified
CPT/HCPCS: 29581

== ENCOUNTER → 2024-06-17 15:00 | Outpatient (CLI) | payer MEDICARE, OTHER, SELFPAY ==
[2023-09-05 11:41] VITALS: BMI 19.5
== END ==
PROVIDERS: Family Provider Family Medicine; PCP Family Medicine; Referring Provider Family Medicine; Visit Provider Surgery
DX: L97.822 Non-pressure chronic ulcer of other part of left lower leg with fat layer exposed (principal); L53.9 Erythematous condition, unspecified; I73.9 Peripheral vascular disease, unspecified; I83.028 Varicose veins of left lower extremity with ulcer other part of lower leg; M79.662 Pain in left lower leg; M54.12 Radiculopathy, cervical region; I48.11 Longstanding persistent atrial fibrillation; M47.816 Spondylosis without myelopathy or radiculopathy, lumbar region; M48.061 Spinal stenosis, lumbar region without neurogenic claudication; S32.010S Wedge compression fracture of first lumbar vertebra, sequela; S32.040S Wedge compression fracture of fourth lumbar vertebra, sequela; S32.030S Wedge compression fracture of third lumbar vertebra, sequela; S22.080S Wedge compression fracture of T11-T12 vertebra, sequela; Z79.01 Long term (current) use of anticoagulants
CPT/HCPCS: 11042; 99213

== ENCOUNTER → 2024-06-20 11:37 | Outpatient (CLI) | payer MEDICARE, OTHER, SELFPAY ==
[2023-09-05 11:41] VITALS: BMI 19.5
== END ==
PROVIDERS: Family Provider Family Medicine; PCP Family Medicine; Referring Provider Family Medicine; Visit Provider Surgery
DX: L97.822 Non-pressure chronic ulcer of other part of left lower leg with fat layer exposed (principal); I87.2 Venous insufficiency (chronic) (peripheral); L53.9 Erythematous condition, unspecified
CPT/HCPCS: 29581; 99212

== ENCOUNTER → 2024-06-24 10:35 | Outpatient (CLI) | payer MEDICARE, OTHER, SELFPAY ==
[2023-09-05 11:41] VITALS: BMI 19.5
== END ==
PROVIDERS: Family Provider Family Medicine; PCP Family Medicine; Referring Provider Family Medicine; Visit Provider Physician Assistant
DX: L97.822 Non-pressure chronic ulcer of other part of left lower leg with fat layer exposed (principal); I73.9 Peripheral vascular disease, unspecified; L53.9 Erythematous condition, unspecified; R21 Rash and other nonspecific skin eruption
CPT/HCPCS: 11042; 87070; 87102; 87205; 99214

== ENCOUNTER → 2024-06-24 11:51 | Outpatient (ROUT) | payer MEDICARE, OTHER, SELFPAY ==
[2023-09-05 11:41] VITALS: BMI 19.5
[2024-06-24 12:08] LABS: INR 3.4 (0.9-1.3); Prothrombin Time 37.4 SECONDS (9.4-12.5)
== END ==
PROVIDERS: Family Provider Family Medicine; PCP Family Medicine; Visit Provider Family Medicine
DX: I48.0 Paroxysmal atrial fibrillation (principal); Z79.01 Long term (current) use of anticoagulants
CPT/HCPCS: 85610

== ENCOUNTER → 2024-06-27 11:11 | Outpatient (CLI) | payer MEDICARE, OTHER, SELFPAY ==
[2023-09-05 11:41] VITALS: BMI 19.5
== END ==
PROVIDERS: Family Provider Family Medicine; PCP Family Medicine; Referring Provider Family Medicine; Visit Provider Physician Assistant
DX: L97.822 Non-pressure chronic ulcer of other part of left lower leg with fat layer exposed (principal); L53.9 Erythematous condition, unspecified; R22.1 Localized swelling, mass and lump, neck; I73.9 Peripheral vascular disease, unspecified
CPT/HCPCS: 29580

== ENCOUNTER → 2024-07-01 10:59 | Outpatient (CLI) | payer MEDICARE, OTHER, SELFPAY ==
[2023-09-05 11:41] VITALS: BMI 19.5
== END ==
LOC: WC 11:03
PROVIDERS: Family Provider Family Medicine; PCP Family Medicine; Referring Provider Family Medicine; Visit Provider Surgery
DX: L97.822 Non-pressure chronic ulcer of other part of left lower leg with fat layer exposed (principal); I73.9 Peripheral vascular disease, unspecified; I83.028 Varicose veins of left lower extremity with ulcer other part of lower leg; L53.9 Erythematous condition, unspecified; R21 Rash and other nonspecific skin eruption; Z79.01 Long term (current) use of anticoagulants
CPT/HCPCS: 11042

== ENCOUNTER → 2024-07-04 13:44 | Outpatient (CLI) | payer MEDICARE, OTHER, SELFPAY ==
[2023-09-05 11:41] VITALS: BMI 19.5
== END ==
PROVIDERS: Family Provider Family Medicine; PCP Family Medicine; Referring Provider Family Medicine; Visit Provider Surgery
DX: L97.822 Non-pressure chronic ulcer of other part of left lower leg with fat layer exposed (principal); I87.2 Venous insufficiency (chronic) (peripheral); L53.9 Erythematous condition, unspecified; R21 Rash and other nonspecific skin eruption
CPT/HCPCS: 29580

== ENCOUNTER → 2024-07-08 11:04 | Outpatient (CLI) | payer MEDICARE, OTHER, SELFPAY ==
[2023-09-05 11:41] VITALS: BMI 19.5
== END ==
PROVIDERS: Family Provider Family Medicine; PCP Family Medicine; Referring Provider Family Medicine; Visit Provider Surgery
DX: L97.822 Non-pressure chronic ulcer of other part of left lower leg with fat layer exposed (principal); I73.9 Peripheral vascular disease, unspecified; L53.9 Erythematous condition, unspecified; R21 Rash and other nonspecific skin eruption; I83.892 Varicose veins of left lower extremity with other complications; I87.2 Venous insufficiency (chronic) (peripheral); I25.10 Atherosclerotic heart disease of native coronary artery without angina pectoris
CPT/HCPCS: 11042; 99213

== ENCOUNTER → 2024-07-11 11:59 | Outpatient (CLI) | payer MEDICARE, OTHER, SELFPAY ==
[2023-09-05 11:41] VITALS: BMI 19.5
== END ==
PROVIDERS: Family Provider Family Medicine; PCP Family Medicine; Referring Provider Family Medicine; Visit Provider Surgery
DX: L97.822 Non-pressure chronic ulcer of other part of left lower leg with fat layer exposed (principal); I73.9 Peripheral vascular disease, unspecified; L53.9 Erythematous condition, unspecified; R21 Rash and other nonspecific skin eruption
CPT/HCPCS: 29580

== ENCOUNTER → 2024-07-15 10:08 | Outpatient (CLI) | payer MEDICARE, OTHER, SELFPAY ==
[2023-09-05 11:41] VITALS: BMI 19.5
== END ==
LOC: WC 10:12
PROVIDERS: Family Provider Family Medicine; PCP Family Medicine; Referring Provider Family Medicine; Visit Provider Surgery
DX: L97.822 Non-pressure chronic ulcer of other part of left lower leg with fat layer exposed (principal); I73.9 Peripheral vascular disease, unspecified; I83.892 Varicose veins of left lower extremity with other complications; L53.9 Erythematous condition, unspecified; M79.662 Pain in left lower leg
CPT/HCPCS: 11042

== ENCOUNTER → 2024-07-18 13:06 | Outpatient (CLI) | payer MEDICARE, OTHER, SELFPAY ==
[2023-09-05 11:41] VITALS: BMI 19.5
== END ==
PROVIDERS: Family Provider Family Medicine; PCP Family Medicine; Referring Provider Family Medicine; Visit Provider Surgery
DX: L97.822 Non-pressure chronic ulcer of other part of left lower leg with fat layer exposed (principal); I87.2 Venous insufficiency (chronic) (peripheral); L53.9 Erythematous condition, unspecified
CPT/HCPCS: 29580

== ENCOUNTER → 2024-07-22 10:27 | Outpatient (CLI) | payer MEDICARE, OTHER, SELFPAY ==
[2023-09-05 11:41] VITALS: BMI 19.5
== END ==
PROVIDERS: Family Provider Family Medicine; PCP Family Medicine; Referring Provider Family Medicine; Visit Provider Surgery
DX: L97.822 Non-pressure chronic ulcer of other part of left lower leg with fat layer exposed (principal); I73.9 Peripheral vascular disease, unspecified; L53.9 Erythematous condition, unspecified; R21 Rash and other nonspecific skin eruption; I83.892 Varicose veins of left lower extremity with other complications
CPT/HCPCS: 11042

== ENCOUNTER → 2024-07-25 11:35 | Outpatient (CLI) | payer MEDICARE, OTHER, SELFPAY ==
[2023-09-05 11:41] VITALS: BMI 19.5
== END ==
PROVIDERS: Family Provider Family Medicine; PCP Family Medicine; Referring Provider Family Medicine; Visit Provider Surgery
DX: L97.822 Non-pressure chronic ulcer of other part of left lower leg with fat layer exposed (principal); I73.9 Peripheral vascular disease, unspecified; L53.9 Erythematous condition, unspecified
CPT/HCPCS: 29580

== ENCOUNTER → 2024-07-29 09:57 | Outpatient (CLI) | payer MEDICARE, OTHER, SELFPAY ==
[2023-09-05 11:41] VITALS: BMI 19.5
== END ==
LOC: WC 10:03
PROVIDERS: Family Provider Family Medicine; PCP Family Medicine; Referring Provider Family Medicine; Visit Provider Surgery
DX: I87.2 Venous insufficiency (chronic) (peripheral) (principal); I73.9 Peripheral vascular disease, unspecified; L97.822 Non-pressure chronic ulcer of other part of left lower leg with fat layer exposed; L98.8 Other specified disorders of the skin and subcutaneous tissue
CPT/HCPCS: 11042

== ENCOUNTER → 2024-08-06 13:03 | Outpatient (CLI) | payer MEDICARE, OTHER, SELFPAY ==
[2023-09-05 11:41] VITALS: BMI 19.5
== END ==
PROVIDERS: Family Provider Family Medicine; PCP Family Medicine; Referring Provider Family Medicine; Visit Provider Surgery
DX: I73.9 Peripheral vascular disease, unspecified (principal); L97.822 Non-pressure chronic ulcer of other part of left lower leg with fat layer exposed; I83.892 Varicose veins of left lower extremity with other complications; L98.8 Other specified disorders of the skin and subcutaneous tissue
CPT/HCPCS: 11042; 99213

== ENCOUNTER → 2024-08-13 13:56 | Outpatient (CLI) | payer MEDICARE, OTHER, SELFPAY ==
[2023-09-05 11:41] VITALS: BMI 19.5
== END ==
LOC: WC 13:57
PROVIDERS: Family Provider Family Medicine; PCP Family Medicine; Referring Provider Family Medicine; Visit Provider Surgery
DX: I73.9 Peripheral vascular disease, unspecified (principal); L97.822 Non-pressure chronic ulcer of other part of left lower leg with fat layer exposed; L98.8 Other specified disorders of the skin and subcutaneous tissue
CPT/HCPCS: 29580; 99213

== ENCOUNTER → 2024-08-20 09:54 | Outpatient (CLI) | payer MEDICARE, OTHER, SELFPAY ==
[2023-09-05 11:41] VITALS: BMI 19.5
== END ==
LOC: WC 09:55
PROVIDERS: Family Provider Family Medicine; PCP Family Medicine; Referring Provider Family Medicine; Visit Provider Surgery
DX: I73.9 Peripheral vascular disease, unspecified (principal); I83.12 Varicose veins of left lower extremity with inflammation; L30.9 Dermatitis, unspecified; Z79.01 Long term (current) use of anticoagulants
CPT/HCPCS: 29580; 99213

== ENCOUNTER → 2024-08-27 10:54 | Outpatient (CLI) | payer MEDICARE, OTHER, SELFPAY ==
[2023-09-05 11:41] VITALS: BMI 19.5
== END ==
PROVIDERS: Family Provider Family Medicine; PCP Family Medicine; Referring Provider Family Medicine; Visit Provider Surgery
DX: I87.2 Venous insufficiency (chronic) (peripheral) (principal); Z79.01 Long term (current) use of anticoagulants
CPT/HCPCS: 99211; 99213

== ENCOUNTER → 2024-09-04 10:12 | Outpatient (CLI) | payer MEDICARE, OTHER, SELFPAY ==
[2023-09-05 11:41] VITALS: BMI 19.5
--- NOTE | 2024-09-04 10:13 | DI.RAD.S_ITS ---
PROCEDURE: XR DEXA AXIAL SKELETON INDICATIONS: OSTEOPENIA,OSTEOPOROSIS COMPARISON: [facility], , XR DEXA AXIAL SKELETON, 08/10/2021, 15:27. FINDINGS: Lumbar Spine: Bone mineral density 0.960 g/cm2, T score -1.3, osteopenia. Left Femoral Neck: Bone mineral density 0.434 g/cm2, T score -3.7. Left Hip: Bone mineral density 0.535 g/cm2, T score -3.3, osteoporosis. Fracture Risk Calculation (when applicable): 10-year fracture risk of a major osteoporotic fracture 29% percent and of a hip fracture 13% percent. (T score greater or equal to -1.0 to: NORMAL) (T score from -1.1 to -2.4: OSTEOPENIA) (T score less than or equal to -2.5: OSTEOPOROSIS) IMPRESSION: Osteoporosis. Bone marrow density is decreased 12.8% in the interval since prior exam obtained August 10, 2021 Follow-up guidelines as follows: Osteoporosis: Consider a repeat DEXA and Vertebral Fracture Assessment (VFA) exam in 2 years or sooner if medically necessary, to reassess this patient's status. Osteopenia: Consider a repeat DEXA in 2-3 years to reassess this patient's status, or if there is a new clinical indication. Normal: Consider a repeat DEXA in 5 years or sooner, or if there is a new clinical indication. All treatment decisions require clinical judgment and consideration of individual patient factors, including patient preferences, comorbidities, previous drug use, risk factors not captured in the FRAX model (e.g., frailty, falls, vitamin D deficiency, increased bone turnover, interval significant decline in bone density ) and possible under- or over-estimation of fracture risk by FRAX. In addition, the NOF Guide recommends that FDA-approved medical therapies be considered in postmenopausal women and men age >= 50 years with a: * Hip or vertebral (clinical or morphometric) fracture * T-score of <=-2.5 at the spine or hip * Ten-year fracture probability by FRAX of >= 3% for hip fracture or >=20% for major osteoporotic fracture. Dictated by: Rose Mary Jhaveri MD, PhD on 09/04/2024 at 13:13 Approved by: Rose Mary Jhaveri MD, PhD on 09/04/2024 at 13:14
== END ==
PROVIDERS: Family Provider Family Medicine; PCP Family Medicine; Referring Provider Family Medicine; Visit Provider Family Medicine
DX: M81.0 Age-related osteoporosis without current pathological fracture (principal)
CPT/HCPCS: 77080

== ENCOUNTER → 2024-12-05 15:39 | Outpatient (ROUT) | payer MEDICARE, OTHER, SELFPAY ==
[2023-09-05 11:41] VITALS: BMI 19.5
[2024-12-05 15:52] LABS: INR 3.1 (0.9-1.3); Prothrombin Time 34.6 SECONDS (9.4-12.5)
== END ==
LOC: LAB 15:40
PROVIDERS: Family Provider Family Medicine; PCP Family Medicine; Visit Provider Family Medicine
DX: R23.3 Spontaneous ecchymoses (principal); Z95.3 Presence of xenogenic heart valve
CPT/HCPCS: 85610

== ENCOUNTER → 2025-06-03 09:49 | Outpatient (CLI) | payer MEDICARE, OTHER, SELFPAY ==
[2023-09-05 11:41] VITALS: BMI 19.5
--- NOTE | 2025-06-03 09:50 | DI.ECHO.S_ITS ---
[facility] : : [address] : : [place] : : [id number] : : Phone: [phone] Echocardiogram Report + + :Name: ISAAC ROSSI Study Date: 06/03/2025 Height: 60 in : :[facility] ReadingLocation: Weight: 110 lb : : Gender: Female BSA: 1.4 m2 : :: 1935 Age: 89 yrs BP: 157/77 mmHg: :Reason For Study: Aortic valve replacement - bioprosthetic : :Ordering Physician: ANTON, : :JERICA Performed By: Yeimi Jacobson : :Referring: JERICA WALTON : + + Interpretation Summary The left ventricle is normal in size. The ejection fraction is estimated to be 55-60%. There has been no significant change in LVEF since the previous exam. The right ventricle is grossly normal size. The right ventricular systolic function is normal. There is a pacemaker lead in the right ventricle. An annuloplasty ring is noted in the mitral position. There is mild to moderate mitral regurgitation. The peak velocity across mitral valve 2.56 m/s and mean gradient 11.56 mmHg with a heart rate in 70s. Suspect severe mitral stenosis. Previous mean gradient 7.7 mmHg. There is a bioprosthetic aortic valve. The prosthetic aortic valve is well-seated. The peak aortic velocity is 2.4 m/sec. The aortic valve mean gradient is 14 mmHg. The peak aortic velocity on the previous exam was 1.7 m/sec. There is no hemodynamically significant valvular aortic stenosis. There is mild to moderate tricuspid regurgitation. The right ventricular systolic pressure is estimated to be at least 46 mmHg based on an estimated right atrial pressure of 8 mm Hg. Previously mild TR and PASP about 27 mmHg. Mild atherosclerotic plaque(s) in the aortic arch. Procedure: A two-dimensional transthoracic echocardiogram with color flow and Doppler was performed. The study quality was technically adequate. Comparison is made with the echocardiogram of 05-14-24. The heart rate ranged between 71-76 bpm during the study. The patient has a paced rhythm. Left Ventricle: The left ventricle is normal in size. Proximal septal thickening is noted. There is no thrombus. The ejection fraction is estimated to be 55-60%. There has been no significant change since the previous exam. Septal motion is consistent with post-operative state. Septal motion is consistent with conduction abnormality. Diastolic function could not be accurately assessed due to paced rhythm. Right Ventricle: There is a pacemaker lead in the right ventricle. The right ventricle is grossly normal size. The right ventricular systolic function is normal. Atria: The left atrium is severely dilated. The left atrium has mildly increased in size since the prior echo exam. The right atrium is borderline dilated. The interatrial septum grossly appears intact with no obvious evidence for an atrial septal defect. Mitral Valve: There is moderate to severe mitral annular calcification. An annuloplasty ring is noted in the mitral position. The peak velocity across mitral valve 2.56 m/s and mean gradient 11.56 mmHg with a heart rate in 70s. Suspect severe mitral stenosis. Previous mean gradient 7.7 mmHg. There is mild to moderate mitral regurgitation. Aortic Valve: There is a bioprosthetic aortic valve. The prosthetic aortic valve is well-seated. The aortic valve area is 1.1 centimeters squared by planimetry. The calculated aortic valve area is 1.2 cm2. The peak aortic velocity is 2.4 m/sec. The aortic valve mean gradient is 14 mmHg. The peak aortic velocity on the previous exam was 1.7 m/sec. There is no hemodynamically significant valvular aortic stenosis. There is trace aortic regurgitation. Tricuspid Valve: Tricuspid leaflets are thickened. There is mild to moderate tricuspid regurgitation. The right ventricular systolic pressure is estimated to be at least 46 mmHg based on an estimated right atrial pressure of 8 mm Hg. Pulmonic Valve: The pulmonic valve leaflets appear thickened, but open well. There is moderate pulmonic regurgitation. Great Vessels: The aortic root is normal size. The ascending aorta is normal in size. The aortic arch is at the upper limits of normal in size. Mild atherosclerotic plaque(s) in the aortic arch. The IVC is dilated (diameter is greater than 2.1 cm) yet it collapses greater than 50% with a sniff. This suggests a right atrial pressure of 8 mm Hg. Pericardium/ Pleura There is no pericardial effusion. There is no pleural effusion. MMode/2D Measurements & Calculations LVIDd: 4.1 cm LVOT diam: 2.0 cm LVIDs: 2.5 cm Ao root diam: 2.6 cm FS: 38.8 % asc Aorta Diam: 3.2 cm EPSS: 1.3 cm Ao Arch Diam (Prox Trans): 3.0 cm IVSd: 0.89 cm LVPWd: 0.88 cm LV thompson. diameter/BSA (cm/m^2): 2.8 LV sys. diameter/BSA (cm/m^2): 1.7 LA A2 area: 20.9 cm2 RA long axis: 5.7 cm LA A4 area: 23.1 cm2 RA area: 19.2 cm2 LA length (vol): 6.0 cm RA vol: 55.4 ml LA vol: 68.3 ml RA : 38.3 ml/m2 LA vol index: 47.1 ml/m2 IVC diam: 2.1 cm RVD1 (basal): 2.8 cm TAPSE: 1.7 cm Doppler Measurements & Calculations Ao V2 max: 245.7 cm/sec LVOT Max Skyler: 96.4 cm/sec Ao V2 mean: 179.4 cm/sec LV V1 max P.7 mmHg Ao max P.2 mmHg LV V1 VTI: 24.9 cm Ao mean P.3 mmHg GABRIEL(I,D): 1.2 cm2 Ao V2 VTI: 61.5 cm GABRIEL(V,D): 1.2 cm2 sev ratio: 0.40 GABRIEL indexed to BSA (cm^2/m^2): 0.84 MV E max skyler: 256.2 cm/sec TR max skyler: 308.0 cm/sec MV A max skyler: 170.9 cm/sec TR max P.9 mmHg MV E/A: 1.5 PA V2 max: 57.9 cm/sec Med Peak E' Skyler: 3.7 cm/sec PA V2 mean: 41.7 cm/sec E/E' med: 69.4 PA mean P.79 mmHg Lat Peak E' Skyler: 8.5 cm/sec PA pr(Accel): 29.3 mmHg E/E' lat: 30.1 E/e' average: 49.7 MV dec time: 0.32 sec MVA(VTI): 1.1 cm2 Pulm A Revs Skyler: 21.2 cm/sec MV V2 mean: 161.4 cm/sec MV mean P.6 mmHg MV V2 VTI: 67.6 cm SV(LVOT): 74.5 ml Reading Physician:12:[id number] PM
== END ==
LOC: ECHO 09:50
PROVIDERS: Family Provider Family Medicine; PCP Family Medicine; Referring Provider Family Medicine; Visit Provider Internal Medicine Cardiovascular Disease
DX: I08.1 Rheumatic disorders of both mitral and tricuspid valves (principal); I70.0 Atherosclerosis of aorta; Z95.3 Presence of xenogenic heart valve
CPT/HCPCS: 93306

== ENCOUNTER → 2025-06-13 11:16 | Outpatient (CLI) | payer MEDICARE, OTHER, SELFPAY ==
[2023-09-05 11:41] VITALS: BMI 19.5
== END ==
PROVIDERS: Family Provider Family Medicine; PCP Family Medicine; Referring Provider Obstetrics & Gynecology; Visit Provider Obstetrics & Gynecology
DX: R82.998 Other abnormal findings in urine (principal); R31.9 Hematuria, unspecified
CPT/HCPCS: 87086